=== PATIENT | male | born 1950 | race Caucasian/White ===

== ENCOUNTER 2017-04-16 17:49 | Emergency (ER) | payer OTHER ==
[2017-04-16 17:57] VITALS: BMI 33.9
[2017-04-16] MEDS ORDERED: CARDIZEM INJ 50 MG VIAL ONE (17:58)
[2017-04-16] MEDS ORDERED: CARDIZEM INJ 50 MG VIAL IVP ONE ×2 (17:59→19:11)
[2017-04-16] MEDS ORDERED: NS 1000 ML 1,000 ML IV SCH (18:00)
[2017-04-16] MEDS ORDERED: NS 1000 ML 1,000 ML ONE ×2 (18:03→19:35)
[2017-04-16 18:12] LABS: BASOPHILS # (AUTO) 0.1 X10^3/uL (0.0-0.1); EOSINOPHILS # (AUTO) 0.1 x10^3/uL (0.0-0.2); EOSINOPHILS % (AUTO) 1.5 % (0.9-2.9); HEMATOCRIT 41.6 % (42.0-54.0); HEMOGLOBIN 14.5 g/dL (13.5-18.0); LYMPHOCYTES # (AUTO) 1.5 X10^3/uL (1.3-2.9); LYMPHOCYTES % (AUTO) 17.3 % (21.0-51.0); MEAN CORPUSCULAR HGB CONC 34.9 g/dL (33.0-35.0); MEAN CORPUSCULAR VOLUME 91.7 fL (80.0-100.0); MEAN PLATELET VOLUME 9.6 fL (7.4-11.0); MONOCYTES # (AUTO) 0.7 x10^3/uL (0.3-0.8); MONOCYTES % (AUTO) 8.6 % (0.0-13.0); NEUTROPHILS # (AUTO) 6.2 x10^3/uL (2.2-4.8); NEUTROPHILS % (AUTO) 71.6 % (42.0-75.0); PLATELET COUNT 195 X10^3/uL (150.0-450.0); RED BLOOD COUNT 4.54 X10^6/uL (4.7-6.0); RED CELL DISTRIBUTION WIDTH 14.8 % (11.6-16.5); WHITE BLOOD COUNT 8.7 X10^3/uL (3.6-10.0)
--- NOTE | 2017-04-16 18:18 | DR.GENAD ---
HPI - PCP Primary Care Physician: adelfo - HPI Comment HPI Comment: PAIN PRECORDIAL AND NON RADIATING. TODAY PAIN MORE INTENSE, MORE FREQUENT AND ASSOCIATED WITH FLUTTERING ANGD WEAKNESS. PATIENT DID NOT TAKE MED TO RELIEF PAIN. - Complaint/Symptoms Chief Complaint Doctors Comments: CHEST PAIN ON AND OFF FOR ONE WEEK. Chief Complaint:: pt. stated he has been havingg chest pain for over a week and today at lunch he started hurting worse. - Nurses notes reviewed Nurses Notes Review: Yes - Source History Provided: Patient, EMS - Mode of Arrival Mode of Arrival: EMS - Timing Onset of Chief Complaint: 04/09/17 Came on: Suddenly - Duration Duration: Intermittent Duration: Days - Severity Severity: Moderate PMH - PMH Past Medical History: Yes Past Medical History: Coronary Artery Disease, CVA, GERD, Hypertension, [place] Past Surgical History: Yes Surgical History: Abdominal Surgery, Appendectomy, Ortho Surgery, Tonsillectomy - Family History History of Family Medical Conditions: Yes Family Medical History: Diabetes Mellitus, Cancer, [place], Hypertension - Social History Does patient currently use any type of tobacco product: No Have you used tobacco products in the last 12 months: No Type of Tobacco Use: None Does any household member use tobacco: No Alcohol Use: Occasionally Do you use any recreational Drugs:: No Lives With: Family Lives Where: Home - infectious screening In the last 2 months have you had wt loss of >10#?: NO Have you had fever, night sweats or hemotysis?: No Have you traveled outside the country in the last 6 months?: No Isolation: Standard ROS - Review of Systems Constitutional: Weakness, Fatigue. negative: Chills, Fever Eyes: No Symptoms Reported. negative: Eye Pain, Discharge ENTM: No Symptoms Reported. negative: Ear Pain, Nose Discharge, Nose Congestion , Throat Pain Respiratoy: Non-Productive Cough. negative: Short of Breath, Wheezing, Hemoptysis Cardiovascular: Chest Pain, Edema (TRACE), Palpitations, Other (A FIB) Gastrointestinal/Abdominal: Nausea Genitourinary: No Symptoms Reported. negative: Dysuria, Frequency, Hematuria Neurological: No Symptoms Reported, Headache, Weakness, Dizziness Musculoskeletal: Muscle Pain Integumentary: Change in Color Hematologic/Lymphatic: No Symptoms Reported Endocrine: No Symptoms Reported All Other Systems: Reviewed and Negative PE - Vital Signs Vitals: Temperature 98.2 F Pulse Rate [Apical] 75 Pulse Rate 150 Respiratory Rate 18 Blood Pressure [Left Arm] 119/78 Blood Pressure [Right Arm] 197/108 Blood Pressure 173/108 O2 Sat by Pulse Oximetry 97 - General Limitations: No Limitations General Appearance: Alert - Head Head Exam: Normal Inspection - Eyes Eye exam: Normal Appearance, PERRL, EOMI. negative: Scleral Icterus, Conjunctival Injection - ENT ENT Exam: Normal External Ear Exam External Ear Exam: Normal External Inspection TM/Canal Exam: Bilateral Normal Nose Exam: Normal Nose Exam Mouth Exam: Normal Inspection Throat Exam: Normal Inspection - Neck Neck Exam: Trachea Midline. negative: Tenderness, Meningismus, Lymphadenopathy - Chest Chest Inspection: Symmetric Chest Wall Rise - Respiratory Respiratory Exam: Normal Lung Sounds Bilat Respiratory Exam: Bilateral Rhonchi, Upper Rhonchi, Lower Rhonchi - Cardiovascular Cardiovascular Exam: Regular Rate, Normal Rhythm, Normal Heart Sounds - Abdominal Exam Abdominal Exam: Normal Bowel Sounds, Soft. negative: Tenderness - Extremities Extremities Exam: Normal Inspection - Back Back Exam: Normal Inspection - Neurologic Neurological Exam: Alert, Oriented X3 - Psychiatric Psychiatric Exam: Normal Affect, Normal Mood - Skin Skin Exam: Normal Color MDM - Additional Information Additional Information Obtained From: Family - Differential Diagnosis Differential Diagnosis: A FIB WITH RVR/ [place], [place], CAD, PNEUMONIA, HTN Course - Treatment Treatment: SEE ORDERS. CARDIOZEM IV DRIP, HEPARIN DRIPIN ED AND LABETALOL IV. PAIN MEDS IN ED ALSO. PATIENT IMPROVING. - Consultation Consultation Comments: PATIENT ACCEPTED BY DR. HOUGH, HOSPITALIST AT [facility]. DISCUSS PATIENT WITH HIM. - Education/Counseling Education/Counseling: Patient, Family, Education Educated On: Treatment, Diagnosis ROR - Labs Reviewed Laboratory Results Reviewed?: Yes Result Diagrams: 04/16/17 17:51 04/16/17 23:05 Laboratory: WBC 8.7 X10^3/uL (3.6-10.0) 04/16/17 17:51 RBC 4.54 X10^6/uL (4.7-6.0) L 04/16/17 17:51 Hgb 14.5 g/dL (13.5-18.0) 04/16/17 17:51 Hct 41.6 % (42.0-54.0) L 04/16/17 17:51 MCV 91.7 fL (80.0-100.0) 04/16/17 17:51 MCH 32.0 pg (27.0-34.0) 04/16/17 17:51 MCHC 34.9 g/dL (33.0-35.0) 04/16/17 17:51 RDW 14.8 % (11.6-16.5) 04/16/17 17:51 Plt Count 195 X10^3/uL (150.0-450.0) 04/16/17 17:51 MPV 9.6 fL (7.4-11.0) 04/16/17 17:51 Neut % 71.6 % (42.0-75.0) 04/16/17 17:51 Lymph % 17.3 % (21.0-51.0) L 04/16/17 17:51 [place] % 8.6 % (0.0-13.0) 04/16/17 17:51 Eos % 1.5 % (0.9-2.9) 04/16/17 17:51 Baso % 1.0 % (0.2-1.0) 04/16/17 17:51 Neut # 6.2 x10^3/uL (2.2-4.8) H 04/16/17 17:51 Lymph # 1.5 X10^3/uL (1.3-2.9) 04/16/17 17:51 [place] # 0.7 x10^3/uL (0.3-0.8) 04/16/17 17:51 Eos # 0.1 x10^3/uL (0.0-0.2) 04/16/17 17:51 Baso # 0.1 X10^3/uL (0.0-0.1) 04/16/17 17:51 Absolute Nucleated RBC 0.1 /100WBC 04/16/17 17:51 INR Target Range - 04/16/17 17:51 INR 1.12 (0.8-1.3) 04/16/17 17:51 PTT 30.8 SECONDS (22.9-36.5) 04/16/17 17:51 PTT Comment - 04/16/17 17:51 D-Dimer 120 ng/mL (0-400) 04/16/17 17:51 Sodium 139 mmol/L (136-145) 04/16/17 17:51 Corrected Sodium TNP 04/16/17 17:51 Potassium 3.4 mmol/L (3.5-5.1) L 04/16/17 23:05 Chloride 102 mmol/L (98-107) 04/16/17 17:51 Carbon Dioxide 26.3 mmol/L (21-32) 04/16/17 17:51 BUN 26 mg/dL (7-18) H 04/16/17 17:51 Creatinine 1.43 mg/dL (0.70-1.30) H 04/16/17 17:51 Est GFR (MDRD) Af Amer > 60 (>60) 04/16/17 17:51 Est GFR (MDRD) Non-Af 53 (>60) L 04/16/17 17:51 Glucose 106 mg/dL (65-99) H 04/16/17 17:51 Calcium 8.8 mg/dL (8.5-10.1) 04/16/17 17:51 Corrected Calcium TNP 04/16/17 17:51 Magnesium 2.0 mg/dL (1.7-2.9) 04/16/17 17:51 Total Bilirubin 1.00 mg/dL (0.2-1.0) 04/16/17 17:51 AST 22 Units/L (15-37) 04/16/17 17:51 ALT 46 Units/L (12-78) 04/16/17 17:51 Alkaline Phosphatase 101 Units/L (46-116) 04/16/17 17:51 Creatine Kinase 53 Units/L (39-308) 04/16/17 23:05 CK-MB (CK-2) 1.2 ng/mL (0-4.0) 04/16/17 23:05 CK/CKMB % Calc 2.3 % (<4) 04/16/17 23:05 Troponin I 0.05 ng/mL (0-1.5) 04/16/17 23:05 Total Protein 7.0 g/dL (6.4-8.2) 04/16/17 17:51 Albumin 3.5 g/dL (3.4-5.0) 04/16/17 17:51 Globulin 3.5 g/dL (2.5-4.5) 04/16/17 17:51 Albumin/Globulin Ratio 1.0 Ratio (1.1-2.1) L 04/16/17 17:51 - XRAY XRAY Interpreted by: Radiologist XRAY Findings: REPORT DISCUSS WITH PATIENT. - EKG Rhythm: Afib (EKG NOTED TIMES 2) - Diagnosis Discharge Problem: New onset atrial fibrillation, Atrial fibrillation with rapid ventricular response Chest pain Qualifiers: Chest pain type: precordial pain Qualified Code(s): R07.2 - Precordial pain Hypertension Qualifiers: Hypertension type: essential hypertension Qualified Code(s): I10 - Essential ( primary) hypertension - Discharge Plan Disposition: XFER SHT-TRM HOSP Condition: Stable - Follow ups/Referrals Follow ups/Referrals: YUMIKO BROWN [Primary Care Provider] - 3 days - Instructions
[2017-04-16] MEDS ORDERED: NS 100 ML IV 100 ML IV ONE (18:22)
[2017-04-16] MEDS ORDERED: CARDIZEM INJ 125 MG VIAL ONE (18:23)
[2017-04-16] MEDS: CARDIZEM INJ 125 MG VIAL 125 MG in NS 100 ML IV 100 ML IV PRN ×2 (18:29→18:46)
[2017-04-16 18:30] LABS: ALANINE AMINOTRANSFERASE 46 Units/L (12-78); ALBUMIN 3.5 g/dL (3.4-5.0); ALKALINE PHOSPHATASE 101 Units/L (46-116); ASPARTATE AMINO TRANSFERASE 22 Units/L (15-37); BLOOD UREA NITROGEN 26 mg/dL (7-18); CALCIUM 8.8 mg/dL (8.5-10.1); CARBON DIOXIDE 26.3 mmol/L (21-32); CHLORIDE 102 mmol/L (98-107); CKMB % 1.8 % (<4); CREATINE KINASE 56 Units/L (39-308); CREATININE 1.43 mg/dL (0.70-1.30); SODIUM 139 mmol/L (136-145); TROPONIN I 0.05 ng/mL (0-1.5); eGFR BLACK RACES > 60 (>60); eGFR NON BLACK RACES 53 (>60)
[2017-04-16] MEDS ORDERED: MORPHINE SULFATE INJ 4 MG IVP ONE ×2 (18:46→21:48)
[2017-04-16] MEDS ORDERED: ZOFRAN INJ 4 MG VIAL IVP ONE (18:46)
[2017-04-16] MEDS ORDERED: K-LYTE EFFERVESCENT PO ONE (18:50)
[2017-04-16] MEDS ORDERED: K-LYTE EFFERVESCENT ONE (18:54)
[2017-04-16] MEDS ORDERED: ASPIRIN 81 MG CHEWTAB ONE (18:54)
[2017-04-16] MEDS ORDERED: ZOFRAN INJ 4 MG VIAL ONE (18:54)
[2017-04-16] MEDS ORDERED: MORPHINE SULFATE INJ 4 MG ONE ×2 (18:55→21:50)
[2017-04-16] MEDS ORDERED: ASPIRIN 81 MG CHEWTAB PO SCH (19:00)
--- NOTE | 2017-04-16 19:05 | RAD ---
HISTORY: Chest pain. Study: Portable chest. Comparison: Chest x-ray dated December 21, 2015. Findings: The trachea is midline. The cardiac silhouette is at the upper limits of normal. No obvious focal c onsolidation, pleural effusion, or pneumothorax.. The bony thorax is unremarkable. IMPRESSION: No acute cardiopulmonary disease. Reported By:
[2017-04-16] MEDS ORDERED: DILAUDID INJ IVP ONE (19:13)
[2017-04-16] MEDS ORDERED: HEPARIN SODIUM IN D5W 25,000 UNITS/500 ML BAG IV PRN (19:28)
[2017-04-16] MEDS ORDERED: HEPARIN SODIUM INJ 5000 UNITS ONE (19:34)
[2017-04-16] MEDS ORDERED: HEPARIN SODIUM IN D5W 25,000 UNITS/500 ML BAG IV ONE (19:34)
[2017-04-16] MEDS ORDERED: HEPARIN SODIUM INJ 5000 UNITS IVP ONE (19:59)
[2017-04-16] MEDS ORDERED: DILAUDID INJ ONE (20:51)
[2017-04-16] MEDS ORDERED: SOLU-Medrol 125 MG VIAL IVP ONE (21:16)
[2017-04-16] MEDS ORDERED: BENADRYL INJ 50 MG VIAL IVP ONE (21:16)
[2017-04-16] MEDS ORDERED: BENADRYL INJ 50 MG VIAL ONE (21:20)
[2017-04-16] MEDS ORDERED: SOLU-Medrol 125 MG VIAL ONE (21:20)
[2017-04-16] MEDS ORDERED: CATAPRES TAB 0.2 MG ONE (21:43)
[2017-04-16] MEDS ORDERED: CATAPRES TAB 0.2 MG PO ONE (21:43)
[2017-04-16] MEDS ORDERED: DEMEROL INJ IVP ONE (22:59)
[2017-04-16] MEDS ORDERED: NORMODYNE INJ 100 MG VIAL IVP ONE (22:59)
[2017-04-16] MEDS ORDERED: NORMODYNE INJ 20 MG VIAL ONE (23:02)
[2017-04-16] MEDS ORDERED: DEMEROL INJ ONE (23:02)
[2017-04-16 23:32] LABS: CKMB % 2.3 % (<4); CREATINE KINASE MB 1.2 ng/mL (0-4.0); TROPONIN I 0.05 ng/mL (0-1.5)
[2017-04-17 00:24] VITALS: BP 119/78
[2017-04-17] MEDS ORDERED: K-LYTE EFFERVESCENT ONE (00:27)
[2017-04-17] MEDS ORDERED: K-LYTE EFFERVESCENT PO SCH (01:00)
[2017-04-17] MEDS ORDERED: NS 100 ML IV 100 ML IV ONE (01:21)
[2017-04-17] MEDS ORDERED: CARDIZEM INJ 125 MG VIAL ONE (01:21)
[2017-04-17] MEDS ORDERED: CARDIZEM INJ 125 MG VIAL 125 MG in NS 100 ML IV 100 ML IV PRN (01:25)
== END 2017-04-17 01:15 | disposition short-term general hospital (02) ==
LOC: ER 17:50
DX: I48.91 Unspecified atrial fibrillation (principal); I48.0 Paroxysmal atrial fibrillation; R07.2 Precordial pain; I10 Essential (primary) hypertension
CPT/HCPCS: 36415; 71010; 80053; 82550; 82553; 83735; 84132; 84484; 85025; 85378; 85610; 85730; 93005; 93010; 96365; 96367; 96374; 96375; 99285; A4222; J1170; J1200; J1644; J2175; J2270; J2405; J2930; J3490

== ENCOUNTER 2017-05-24 07:38 | Inpatient (IN) ==
[2017-05-24] MEDS ORDERED: NS 1000 ML 1,000 ML ONE (07:57)
[2017-05-24] MEDS ORDERED: NS 100 ML IV 100 ML IV ONE (07:58)
[2017-05-24] MEDS ORDERED: CARDIZEM INJ 125 MG VIAL ONE (07:58)
[2017-05-24] MEDS ORDERED: CARDIZEM INJ 50 MG VIAL ONE (07:58)
[2017-05-24] MEDS ORDERED: CARDIZEM INJ 50 MG VIAL IVP ONE ×2 (08:00→09:21)
[2017-05-24] MEDS ORDERED: ADACEL or BOOSTRIX TDaP VACCINE IM ONE ×2 (08:01→08:48)
--- NOTE | 2017-05-24 08:03 | DR.GENAD ---
HPI - PCP Primary Care Physician: YUMIKO BARNHART - Complaint/Symptoms Chief Complaint Doctors Comments: Patient is complaining of xiphoid chest pain after falling going down the steps at home about a hour ago with laceration on both lower legs. Patient states he just go out of [facility] last week with Atrial fibrillation in which they shocked him. States he has not taken any medicines in over a week. He is not taking any blood thinners or medicines for his heart. States he is a patient of Yumiko emanuel and he is unsure when he had his last tetanus shot. State his pain is 9 of 10. He denies SOB, nausea, vomiting, fever or chills. States there was ice on the steps is reason he felled. Patient denies head trauma or LOC. Patient drove himself to the EMS station and they wrapped his legs and brought him to the emergency room. Chief Complaint:: PATIENT HAS SKIN TEAR TO HIS LEFT LEG AND RIGHT LEG. PATIENT IS STATED HE FELL THIS MORNING ABOUT A HOUR PRIOR TO GOING TO THE EMS STATION. WHEN THEY TOOK HIS BLOOD PRESSURE HIS PRESSURE WAS 240/160 MANUAL. PATIENT IS C/ O LEFT CHEST DISCOMFORT. - Nurses notes reviewed Nurses Notes Review: Yes - Source History Provided: Patient, EMS - Mode of Arrival Mode of Arrival: EMS - Timing Onset of Chief Complaint: 05/24/17 Came on: Suddenly - Duration Duration: Constant How lon Duration: Hours - Location Location: xiphoid chest pain - Severity Severity: Moderate - Modifying Factors Worsens:: movement Improves:: nothing PMH - PMH Past Medical History: Yes Past Medical History: Coronary Artery Disease, CVA, GERD, Hypertension, [place] Past Surgical History: Yes Surgical History: Abdominal Surgery, Appendectomy, Ortho Surgery, Tonsillectomy - Family History History of Family Medical Conditions: Yes Family Medical History: Diabetes Mellitus, Cancer, [place], Hypertension - Social History Does patient currently use any type of tobacco product: No Have you used tobacco products in the last 12 months: No Type of Tobacco Use: None Does any household member use tobacco: No Alcohol Use: None Do you use any recreational Drugs:: No Lives With: Family Lives Where: Home - infectious screening In the last 2 months have you had wt loss of >10#?: NO Have you had fever, night sweats or hemotysis?: No Have you traveled outside the country in the last 6 months?: No Isolation: Standard ROS - Review of Systems Constitutional: No Symptoms Reported. negative: See HPI, Chills, Diaphoresis, Fever, Malaise, Weakness, Irritable, Fatigue, Loss of Appetite, Other Eyes: No Symptoms Reported. negative: See HPI, Eye Pain, Blurred Vision, Tearing, Discharge, Photophobia, Diplopia, Other ENTM: No Symptoms Reported Respiratoy: No Symptoms Reported. negative: See HPI, Productive Cough, Non- Productive Cough, Moist Cough, Dry Cough, Hacking Cough, Barking Cough, Brassy Cough, Orthopnea, Short of Breath, Stridor, Wheezing, Hemoptysis, Other Cardiovascular: Chest Pain. negative: No Symptoms Reported, See HPI, Edema, Palpitations, Syncope, Cyanosis, Skin Mottling, Other Gastrointestinal/Abdominal: No Symptoms Reported. negative: See HPI, Abdominal Pain, Constipation, Diarrhea, Nausea, Vomiting, Food Intolerance, Other Genitourinary: No Symptoms Reported. negative: See HPI, Discharge, Dysuria, Frequency, Hematuria, Pain, Bleeding, Other Neurological: No Symptoms Reported. negative: See HPI, Anxiety, Depressed, Emotional Problems, Headache, Numbness, Paresthesia, Pre-existing Deficit, Seizure, Tingling, Tremors, Weakness, Dizziness, Problems Walking, Speech Problem, Other Musculoskeletal: No Symptoms Reported, Right (laceration), Left, Leg Integumentary: No Symptoms Reported, Wound (lower legs), Bruises Hematologic/Lymphatic: No Symptoms Reported. negative: See HPI, Anemia, Blood Clots, Easy Bleeding, Easy Bruising, Swollen Glands, Lymphadenopathy, Other Endocrine: No Symptoms Reported Psychiatric: No Symptoms Reported. negative: See HPI, Anxiety, Depression, Hallucinations, Excessive crying, Suicidal, Other PE - Vital Signs Vitals: Temperature 97.7 F Pulse Rate [] 126 Pulse Rate 129 Respiratory Rate 18 Blood Pressure [] 228/159 Blood Pressure [] 197/108 Blood Pressure 210/150 O2 Sat by Pulse Oximetry 98 - General Limitations: No Limitations General Appearance: Alert, In Distress (moderate) - Head Head Exam: Normal Inspection, Atraumatic, Normocephalic - Eyes Eye exam: Normal Appearance, PERRL, EOMI. negative: Scleral Icterus, Conjunctival Injection, Nystagmus, Miosis, Mydrasis, Periorbital Swelling, Periorbital Tenderness, Other - ENT ENT Exam: Normal Exam, Normal Oropharynx, Normal External Ear Exam, Mucous Membranes Moist, TM's Normal Bilaterally External Ear Exam: Normal External Inspection TM/Canal Exam: Bilateral Normal Nose Exam: Normal Nose Exam Mouth Exam: Normal Inspection. negative: Drooling, Trismus, Lip Swelling, Tongue Elevation, Tongue Swelling, Laceration, Other Throat Exam: Normal Inspection - Neck Neck Exam: Normal Inspection, Full ROM, Trachea Midline - Chest Chest Inspection: Normal Inspection, Symmetric Chest Wall Rise, Tenderness ( xiphoid tenderness on palpation) - Respiratory Respiratory Exam: Normal Lung Sounds Bilat Respiratory Exam: Bilateral Clear to Auscultation - Cardiovascular Cardiovascular Exam: Tachycardia, Irregular Rhythm, Systolic Murmur - Abdominal Exam Abdominal Exam: Normal Inspection, Normal Bowel Sounds, Soft Abdominal Tenderness: negative: RUQ, RLQ, LUQ, LLQ, Epigastrium, Suprapubic, Diffuse, Mild, Moderate, Severe, Other - Extremities Extremities Exam: Normal Inspection, Full ROM, Tenderness (lower extremitites with bandage intact), Normal Capillary Refill - Back Back Exam: Normal Inspection, Full ROM. negative: Tenderness, (R) CVA Tenderness, (L) CVA Tenderness, Muscle Spasm, Paraspinal Tenderness, Vertebral Tenderness, Rashes, (R) Sciatic Notch Tenderness, (L) Sciatic Notch Tendern, (R ) Straight Leg Raise, (L) Straight Leg Raise, Other - Neurologic Neurological Exam: Alert, Oriented X3, CN II-XII Intact, Reflexes Normal. negative: Normal Gait (gait not tested) - Psychiatric Psychiatric Exam: Normal Affect, Normal Mood - Skin Skin Exam: Warm, Dry, Intact, Normal Color Course - Reevaluation 1st: Improved - Consultation Called: 09:53 Call Returned: 09:53 (Dr. Turner to admit) - Education/Counseling Education/Counseling: Patient, Family Educated On: Treatment, Diagnosis, Needs for Follow Up ROR - Labs Reviewed Laboratory Results Reviewed?: Yes (all labs and x-ray results reviewed and discussed with patient) Result Diagrams: 05/24/17 08:26 05/24/17 08:26 Laboratory: WBC 6.9 X10^3/uL (3.6-10.0) 05/24/17 08:26 RBC 4.56 X10^6/uL (4.7-6.0) L 05/24/17 08:26 Hgb 14.7 g/dL (13.5-18.0) 05/24/17 08:26 Hct 42.6 % (42.0-54.0) 05/24/17 08:26 MCV 93.3 fL (80.0-100.0) 05/24/17 08:26 MCH 32.1 pg (27.0-34.0) 05/24/17 08: MCHC 34.4 g/dL (33.0-35.0) 05/24/17 08: RDW 14.6 % (11.6-16.5) 05/24/17 08:26 Plt Count 194 X10^3/uL (150.0-450.0) 05/24/17 08: MPV 10.1 fL (7.4-11.0) 05/24/17 08: Neut % 76.3 % (42.0-75.0) H 05/24/17 08: Lymph % 15.5 % (21.0-51.0) L 05/24/17 08:26 [place] % 5.5 % (0.0-13.0) 05/24/17 08:26 Eos % 1.5 % (0.9-2.9) 05/24/17 08: Baso % 1.2 % (0.2-1.0) H 05/24/17 08:26 Neut # 5.2 x10^3/uL (2.2-4.8) H 05/24/17 08:26 Lymph # 1.1 X10^3/uL (1.3-2.9) L 05/24/17 08:26 [place] # 0.4 x10^3/uL (0.3-0.8) 05/24/17 08:26 Eos # 0.1 x10^3/uL (0.0-0.2) 05/24/17 08: Baso # 0.1 X10^3/uL (0.0-0.1) 05/24/17 08: Absolute Nucleated RBC 0.0 /100WBC 05/24/17 08: INR Target Range - 05/24/17 08: INR 1.07 (0.8-1.3) 01/06/18 08:26 PTT 28.2 SECONDS (22.9-36.5) 05/24/17 08:26 PTT Comment - 05/24/17 08:26 Sodium 140 mmol/L (136-145) 05/24/17 08:26 Corrected Sodium 140 mmol/L (136-145) 05/24/17 08:26 Potassium 3.1 mmol/L (3.5-5.1) L 05/24/17 08:26 Chloride 102 mmol/L (98-107) 05/24/17 08:26 Carbon Dioxide 25.1 mmol/L (21-32) 05/24/17 08:26 BUN 29 mg/dL (7-18) H 05/24/17 08:26 Creatinine 1.64 mg/dL (0.70-1.30) H 05/24/17 08:26 Est GFR (MDRD) Af Amer 55 (>60) L 05/24/17 08:26 Est GFR (MDRD) Non-Af 45 (>60) L 05/24/17 08:26 Glucose 117 mg/dL (65-99) H 05/24/17 08:26 Calcium 9.2 mg/dL (8.5-10.1) 05/24/17 08:26 Corrected Calcium TNP 05/24/17 08:26 Magnesium 2.0 mg/dL (1.7-2.9) 05/24/17 08:26 Total Bilirubin 0.60 mg/dL (0.2-1.0) 05/24/17 08:26 AST 15 Units/L (15-37) 05/24/17 08:26 ALT 38 Units/L (12-78) 05/24/17 08:26 Alkaline Phosphatase 115 Units/L (46-116) 05/24/17 08:26 Creatine Kinase 62 Units/L (39-308) 05/24/17 08:26 CK-MB (CK-2) 1.0 ng/mL (0-4.0) 05/24/17 08:26 CK/CKMB % Calc 1.6 % (<4) 05/24/17 08:26 Troponin I 0.04 ng/mL (0-1.5) 05/24/17 08:26 Total Protein 7.4 g/dL (6.4-8.2) 05/24/17 08:26 Albumin 3.6 g/dL (3.4-5.0) 05/24/17 08:26 Globulin 3.8 g/dL (2.5-4.5) 05/24/17 08:26 Albumin/Globulin Ratio 0.9 Ratio (1.1-2.1) L 05/24/17 08:26 Specimen Type Random urine 05/24/17 08:44 Urine Color Yellow (YELLOW) 05/24/17 08:44 Urine Appearance Clear (CLEAR) 05/24/17 08:44 Urine pH 6.0 (5.0 - 8.0) 05/24/17 08:44 Ur Specific [place] 1.015 (1.000-1.030) 05/24/17 08:44 Urine Protein 3+ (NEGATIVE) 05/24/17 08:44 Urine Glucose (UA) Negative (NEGATIVE) 05/24/17 08:44 Urine Ketones Negative (NEGATIVE) 05/24/17 08:44 Urine Occult Blood 2+ (NEGATIVE) 05/24/17 08:44 Urine Nitrite Negative (NEGATIVE) 05/24/17 08:44 Urine Bilirubin Negative (NEGATIVE) 05/24/17 08:44 Urine Urobilinogen Normal (NORMAL) 05/24/17 08:44 Ur Leukocyte Esterase 1+ (NEGATIVE) 05/24/17 08:44 Urine RBC Rare /HPF (NEGATIVE) 05/24/17 08:44 Urine WBC Rare /HPF (NEGATIVE) 05/24/17 08:44 Ur Squamous Epith Cells Rare /HPF (NEGATIVE) 05/24/17 08:44 Urine Bacteria Negative /HPF (NEGATIVE) 05/24/17 08:44 Ur Culture Indicated? No/not indicated 05/24/17 08:44 - XRAY XRAY Interpreted by: Radiologist (CXR: Cardiomegaly, no acute process identified) XRAY Findings: RIght knee: Prepatellar and diffuse periarticular soft tissue swelling fletcher - EKG Rate: 143 Rhythm: Afib Hypertrophy: LVH ST: Nonsp Procedures - Laceration/Wound Repair Right Knee Wound's Depth, Shape: Irregular, Flap, Contused Tissue Wound Explored: no foreign body removed Irrigated w/ Saline (ccs): 100 Betadine Prep?: Yes Anesthesia: 1% Lidocaine Volume Anesthetic (ccs): 10 Wound Repaired With: sutures Suture Size/Type: 3:0, Nylon Number of Sutures: 8 Layer Closure?: No Sterile Dressing Applied?: Yes Splint Applied?: No - Diagnosis Discharge Problem: Atrial fibrillation with rapid ventricular response, Uncontrolled hypertension , Hypokalemia, Traumatic hematoma of right knee Laceration of right lower extremity Qualifiers: Encounter type: initial encounter Qualified Code(s): S81.811A - Laceration without foreign body, right lower leg, initial encounter Contusion of right knee and lower leg Qualifiers: Encounter type: initial encounter Qualified Code(s): S80.01XA - Contusion of right knee, initial encounter; S80.11XA - Contusion of right lower leg, initial encounter; S80.11XA - Contusion of right lower leg, initial encounter Chronic kidney disease (CKD) Qualifiers: Chronic kidney disease stage: stage 3 (moderate) Qualified Code(s): N18.3 - Chronic kidney disease, stage 3 (moderate) - Discharge Plan Disposition: 09 ADMITTED INPATIENT Condition: Stable - Follow ups/Referrals Follow ups/Referrals: YUMIKO EMANUEL [Primary Care Provider] - 3 days - Instructions
[2017-05-24] MEDS: NS 1000 ML 1,000 ML IV SCH ×2 (08:10→22:37)
[2017-05-24] MEDS: CARDIZEM INJ 125 MG VIAL 125 MG in NS 100 ML IV 100 ML IV PRN ×2 (08:12→17:40)
[2017-05-24 08:40] LABS: BASOPHILS # (AUTO) 0.1 X10^3/uL (0.0-0.1); BASOPHILS % (AUTO) 1.2 % (0.2-1.0); EOSINOPHILS # (AUTO) 0.1 x10^3/uL (0.0-0.2); EOSINOPHILS % (AUTO) 1.5 % (0.9-2.9); HEMATOCRIT 42.6 % (42.0-54.0); HEMOGLOBIN 14.7 g/dL (13.5-18.0); LYMPHOCYTES # (AUTO) 1.1 X10^3/uL (1.3-2.9); LYMPHOCYTES % (AUTO) 15.5 % (21.0-51.0); MEAN CORPUSCULAR HEMOGLOBIN 32.1 pg (27.0-34.0); MEAN CORPUSCULAR HGB CONC 34.4 g/dL (33.0-35.0); MEAN CORPUSCULAR VOLUME 93.3 fL (80.0-100.0); MEAN PLATELET VOLUME 10.1 fL (7.4-11.0); MONOCYTES # (AUTO) 0.4 x10^3/uL (0.3-0.8); MONOCYTES % (AUTO) 5.5 % (0.0-13.0); NEUTROPHILS # (AUTO) 5.2 x10^3/uL (2.2-4.8); NEUTROPHILS % (AUTO) 76.3 % (42.0-75.0); PLATELET COUNT 194 X10^3/uL (150.0-450.0); RED BLOOD COUNT 4.56 X10^6/uL (4.7-6.0); RED CELL DISTRIBUTION WIDTH 14.6 % (11.6-16.5); WHITE BLOOD COUNT 6.9 X10^3/uL (3.6-10.0)
[2017-05-24] MEDS ORDERED: CATAPRES TAB 0.2 MG PO ONE (08:42)
[2017-05-24] MEDS ORDERED: CATAPRES TAB 0.2 MG ONE (08:42)
[2017-05-24] MEDS ORDERED: MORPHINE SULFATE INJ 4 MG IVP STA (08:43)
[2017-05-24] MEDS ORDERED: MORPHINE SULFATE INJ 4 MG ONE (08:48)
[2017-05-24] MEDS ORDERED: NEOSPORIN OINT ONE (08:51)
[2017-05-24 08:54] LABS: BLOOD UREA NITROGEN 29 mg/dL (7-18); CALCIUM 9.2 mg/dL (8.5-10.1); CARBON DIOXIDE 25.1 mmol/L (21-32); CHLORIDE 102 mmol/L (98-107); COR NA(FOR HYPERGLY) 140 mmol/L (136-145); CREATININE 1.64 mg/dL (0.70-1.30); SODIUM 140 mmol/L (136-145); TROPONIN I 0.04 ng/mL (0-1.5); eGFR NON BLACK RACES 45 (>60)
--- NOTE | 2017-05-24 08:56 | RAD ---
Examination: Portable AP chest History: Chest pain Comparison reference 04/16/2017 Findings: Moderate cardiomegaly with arteriosclerotic aorta, essentially clear lungs and pleural spac es. Impression: Cardiac enlargement, no acute process identified. Reported By:
[2017-05-24 08:58] LABS: ALANINE AMINOTRANSFERASE 38 Units/L (12-78); ALBUMIN 3.6 g/dL (3.4-5.0); ALKALINE PHOSPHATASE 115 Units/L (46-116); ASPARTATE AMINO TRANSFERASE 15 Units/L (15-37); CKMB % 1.6 % (<4); CREATINE KINASE 62 Units/L (39-308); TOTAL PROTEIN 7.4 g/dL (6.4-8.2)
[2017-05-24] MEDS ORDERED: XYLOCAINE 1 % (PLAIN) ONE ×3 (08:58→09:06)
[2017-05-24 09:09] LABS: BILIRUBIN,URINE NEGATIVE (NEGATIVE); BLOOD/HEMOGLOBIN,URINE 2+ (NEGATIVE); GLUCOSE, URINE NEGATIVE (NEGATIVE); KETONES,URINE NEGATIVE (NEGATIVE); LEUKOCYTE ESTERASE ,URINE 1+ (NEGATIVE); NITRITES,URINE NEGATIVE (NEGATIVE); PROTEIN,URINE 3+ (NEGATIVE); UROBILINOGEN,URINE NORMAL (NORMAL)
[2017-05-24 09:13] LABS: APPEARANCE,URINE CLEAR (CLEAR); COLOR,URINE YELLOW (YELLOW)
[2017-05-24] MEDS ORDERED: NS IRRIGATION 1000 ML 1,000 ML ONE (09:14)
[2017-05-24] MEDS ORDERED: HIBICLENS WASH ONE (09:14)
[2017-05-24 09:17] LABS: RBC,URINE RARE /HPF (NEGATIVE); SQUAMOUS EPITHELIAL CELL,UR RARE /HPF (NEGATIVE)
[2017-05-24 09:18] LABS: BACTERIA,URINE NEGATIVE /HPF (NEGATIVE)
[2017-05-24] MEDS ORDERED: LASIX IVP ONE ×2 (09:25→09:27)
[2017-05-24] MEDS ORDERED: ROCEPHIN VIAL 1 GRAM 1 G in NS 100 ML IV + SPIKE MINIBAG* 100 ML IV ONE (09:28)
[2017-05-24] MEDS: NITROSTAT SL PRN (09:29)
[2017-05-24] MEDS ORDERED: NS 25 ML IV 25 ML IV ONE (09:32)
[2017-05-24] MEDS ORDERED: ROCEPHIN VIAL 1 GRAM ONE (09:33)
--- NOTE | 2017-05-24 09:53 | RAD ---
History: Right knee pain following fall. Exam: Three-view series of the right knee joint demonstrates moderate tricompartmental right knee brandyn nt osteoarthritis, worse medially, without evidence for acute fracture or acute bony injury. There is periarticular and diffuse prepatellar soft tissue swelling and edema with an adjacent laceration. No significant knee joint effusion is seen. There is an old, healed, right proximal fibular diaphyseal fracture. No other bony abnormalities are observed on the exam. Impression: Prepatellar and diffuse periarticular soft tissue swelling edema with a focal soft tissue laceration without evidence for acute fracture or other acute bony injury. No significant knee joint effusion. Moderate tricompartmental knee joint osteoarthritis, worse medially. Reported By:
[2017-05-24] MEDS: K-LYTE EFFERVESCENT PO SCH (09:58)
[2017-05-24] MEDS ORDERED: ATIVAN TAB 1 MG PO PRN (09:59)
[2017-05-24 12:28] VITALS: BMI 33.9
[2017-05-24] MEDS: NORCO 5/325 MG TAB PO PRN (13:15)
[2017-05-24] MEDS: TORADOL 30 MG VIAL IVP PRN (15:32)
[2017-05-24] MEDS ORDERED: POTASSIUM CHL 40 MEQ/NS 0.45% 500 ML IV PRN (15:57)
[2017-05-24] MEDS ORDERED: POTASSIUM CHLORIDE LIQ 20 MEQ UDC PO PRN (15:57)
[2017-05-24] MEDS ORDERED: MAG-OX TAB PO PRN (15:57)
[2017-05-24] MEDS ORDERED: K-RIDER 10 MEQ/NS 100 ML 10 MEQ/100 ML BAG IV PRN (15:57)
[2017-05-24] MEDS ORDERED: K-LYTE EFFERVESCENT PO PRN (15:57)
[2017-05-24] MEDS ORDERED: MAGNESIUM SULFATE 1 GRAM/100 mL PREMIX 1 GM/100 ML BAG IV PRN (15:57)
[2017-05-24] MEDS ORDERED: POTASSIUM CHL 60 MEQ/NS 0.45% 500 ML IV PRN (15:57)
[2017-05-24 16:02] LABS: CKMB % 2.4 % (<4); CREATINE KINASE MB 1.1 ng/mL (0-4.0); TROPONIN I 0.03 ng/mL (0-1.5)
[2017-05-24] MEDS ORDERED: NORMODYNE INJ 20 MG VIAL IV PRN (17:41)
[2017-05-24] MEDS: NORMODYNE INJ 20 MG VIAL IV PRN (17:53)
[2017-05-24 23:10] LABS: CKMB % 2.2 % (<4); CREATINE KINASE 45 Units/L (39-308); CREATINE KINASE MB < 1.0 ng/mL (0-4.0); TROPONIN I 0.03 ng/mL (0-1.5)
[2017-05-25] MEDS ORDERED: NITROSTAT SL ONE (00:47)
[2017-05-25] MEDS: NITROSTAT SL PRN ×2 (00:50→00:55)
[2017-05-25] MEDS: NORCO 5/325 MG TAB PO PRN (01:00)
[2017-05-25] MEDS: TORADOL 30 MG VIAL IVP PRN (02:10)
[2017-05-25 06:21] LABS: BASOPHILS # (AUTO) 0.1 X10^3/uL (0.0-0.1); BASOPHILS % (AUTO) 1.1 % (0.2-1.0); EOSINOPHILS # (AUTO) 0.1 x10^3/uL (0.0-0.2); EOSINOPHILS % (AUTO) 2.3 % (0.9-2.9); HEMOGLOBIN 12.6 g/dL (13.5-18.0); LYMPHOCYTES # (AUTO) 1.1 X10^3/uL (1.3-2.9); LYMPHOCYTES % (AUTO) 17.1 % (21.0-51.0); MEAN CORPUSCULAR HEMOGLOBIN 31.9 pg (27.0-34.0); MEAN CORPUSCULAR HGB CONC 34.2 g/dL (33.0-35.0); MEAN CORPUSCULAR VOLUME 93.5 fL (80.0-100.0); MEAN PLATELET VOLUME 10.6 fL (7.4-11.0); MONOCYTES # (AUTO) 0.5 x10^3/uL (0.3-0.8); MONOCYTES % (AUTO) 7.4 % (0.0-13.0); NEUTROPHILS # (AUTO) 4.6 x10^3/uL (2.2-4.8); NEUTROPHILS % (AUTO) 72.1 % (42.0-75.0); PLATELET COUNT 166 X10^3/uL (150.0-450.0); RED BLOOD COUNT 3.95 X10^6/uL (4.7-6.0); RED CELL DISTRIBUTION WIDTH 14.3 % (11.6-16.5); WHITE BLOOD COUNT 6.4 X10^3/uL (3.6-10.0)
[2017-05-25 06:40] LABS: ALANINE AMINOTRANSFERASE 30 Units/L (12-78); ALKALINE PHOSPHATASE 90 Units/L (46-116); ASPARTATE AMINO TRANSFERASE 14 Units/L (15-37); BLOOD UREA NITROGEN 30 mg/dL (7-18); CALCIUM 8.5 mg/dL (8.5-10.1); CARBON DIOXIDE 28.3 mmol/L (21-32); CHLORIDE 104 mmol/L (98-107); CHOL/HDL RATIO 4.2 (0.0-5.0); CHOLESTEROL 172 mg/dL (0-200); COR CA(FOR HYPOALB) 9.3 mg/dL (8.5-10.1); HDL CHOLESTEROL 41 mg/dL (40-60); SODIUM 142 mmol/L (136-145); TOTAL PROTEIN 6.2 g/dL (6.4-8.2); TRIGLYCERIDES 58 mg/dL (0-150); eGFR NON BLACK RACES 41 (>60)
[2017-05-25] MEDS: CARDIZEM INJ 125 MG VIAL 125 MG in NS 100 ML IV 100 ML IV PRN (06:58)
[2017-05-25] MEDS ORDERED: AMBIEN PO PRN (07:54)
[2017-05-25] MEDS: ZESTRIL TAB 40 MG PO SCH ×2 (09:21→20:30)
[2017-05-25] MEDS: LOVENOX INJ 40 MG SYR SC SCH (09:22)
[2017-05-25] MEDS: PROTONIX INJ 40 MG VIAL IVP SCH (09:23)
[2017-05-25] MEDS: FLOMAX PO SCH (09:24)
[2017-05-25] MEDS: K-LYTE EFFERVESCENT PO SCH ×2 (09:24→09:26)
[2017-05-25] MEDS: CARDIZEM CD 240 MG PO SCH (11:36)
[2017-05-25] MEDS: APRESOLINE TAB 25 MG PO SCH ×2 (11:46→16:23)
[2017-05-25] MEDS ORDERED: PATIENT'S HOME MEDICATION (Hydralazine Hcl [Hydralazine Hcl] 1 TAB) PO SCH (12:00)
[2017-05-25] MEDS: NS 1000 ML 1,000 ML IV SCH ×2 (15:58→15:59)
--- NOTE | 2017-05-25 20:16 | DR.H&P ---
H&P - History & Physical for Day of: H&P Date: 05/24/17 - Chief Complaint Chief Complaint: fall - Allergies Allergies/Adverse Reactions: Allergies Allergy/AdvReac Type Severity Reaction Status Date / Time No Known Drug Allergies Allergy Verified 04/16/17 17:50 - History of Present Illness History of Present Illness: is a 66 year old patient of who presented to the emergency room via EMS with complaints of a laceration to the left and right legs after slipping on ice and falling down the steps at home. Patient reports that he fell approximately one hour prior to arrival at the ER. He is also noted with complaints of xiphoid chest discomfort after falling. Patient rates pain 9/10 to chest and bilateral knees. EMS reported a manual blood pressure of 240/160. Patient reports recently being discharged from [facility] for treatment of atrial fibrillation. Patient states that they had to cardiovert him. He denies compliance with medications since discharge. He denies shortness of breath, nausea, vomiting, fever, or chills. He denies hitting his head or loss of consciousness when he fell. On examination, heart rate is irregular and rapid. Bilateral lungs are noted clear to auscultation. Abdomen is round, soft, and non-tender with normal bowel sounds noted in all quadrants. On arrival, vitals were 97.7, 129, 22, 96% RA, 210/150. Labs, EKG, and xrays were obtained. Abnormal Labs include the following : RBC 4.56, Potassium 3.1, BUN 29, Creatinine 1.64, GFR(AA) 55, GFR(non) 45, Glucose 117, A/G Ratio 0.9. Urinalysis reports: Protein 3+, Occult Blood 2+, Leuk Ca 1+, RBC rare, WBC rare, Squam Epith Cells rare. Chest xray reports: Cardiac enlargement, no acute process identified. Right knee xray reports: Prepatellar and diffuse periarticular soft tissue swelling edema with a focal soft tissue laceration without evidence for acute fracture or other acute bony injury. No significant joint effusion. Moderate tricompartmental knee joint osteoarthritis, worse medially. Laceration to the right knee was repaired using 8 3.0 nylon sutures. A bandage was applied. EKG reports: Atrial fibrillation. Heart rwuf=[id number]. Patient given 2 boluses of Cardizem and then started on a Cardizem drip. He was given catapres 0.2mg po x 1. Blood pressure decreased to 133/87 prior to admission. We admitted patient to the intensive care unit for further treatment and evaluation. We will continue to monitor blood pressure and heart rate and rhythm closely. We plan to follow up with am labs and ekg and continue to monitor. - Past Medical History Past Medical History: Coronary Artery Disease, CVA, GERD, Hypertension, [place] - Past Surgical History Surgical History: Abdominal Surgery, Ortho Surgery - Family History Family Medical History: Diabetes Mellitus, Cancer, Coronary Artery Disease, Hypertension - Social History Does patient currently use any type of tobacco product: No Have you used tobacco products in the last 12 months: No Type of Tobacco Use: None Does any household member use tobacco: No Alcohol Use: Occasionally Drug Use: Prescription Drugs - Medications Home Medications: Atorvastatin Calcium 1 tab PO HS 05/24/17 [History Confirmed 05/24/17] Hydralazine HCl 1 tab PO TIDWM 05/24/17 [History Confirmed 05/24/17] Lisinopril 0.5 tab PO BID 05/24/17 [History Confirmed 05/24/17] Ropinirole HCl 1 tab PO HS 05/24/17 [History Confirmed 05/24/17] Tamsulosin HCl [FLOMAX (GENERIC) 0.4 MG *] 1 cap PO DAILY 05/24/17 [History Confirmed 05/24/17] Zolpidem Tartrate 1 tab PO DAILY PRN 05/24/17 [History Confirmed 05/24/17] - Review of Systems Constitutional: No Symptoms Reported Eyes: No Symptoms Reported. denies: Vision Change, Conjunctivae Inflammation, Eyelid Inflammation, Redness ENT: No Symptoms Reported, See HPI. denies: Ear Pain, Ear Discharge, Nose Pain , Nose Discharge, Nose Congestion, Mouth Pain, Mouth Swelling, Throat Pain, Throat Swelling, Other Respiratory: No Symptoms Reported. denies: Shortness of Breath, Hemoptysis, SOB with Excertion, Sputum, Wheezing Cardiovascular: Chest Pain Gastrointestinal: No Symptoms Reported. denies: See HPI, Nausea, Vomiting, Abdominal Pain, Diarrhea, Constipation, Melena, Hematochezia, Other Genitourinary: No Symptoms Reported. denies: See HPI, Dysuria, Frequency, Incontinence, Hematuria, Retention, Other Musculoskeletal: See HPI, Other (BILATERAL KNEE PAIN ) Skin: See HPI, Wound (LACERATIONS TO BILATERAL KNEES ) Neurological: No Symptoms Reported - Physical Exam Vital Signs: Temperature 98.1 F Pulse Rate [Apical] 121 Pulse Rate 129 Respiratory Rate 26 Blood Pressure [Left Arm] 177/113 Blood Pressure [Right Arm] 127/89 Blood Pressure 210/150 O2 Sat by Pulse Oximetry 98 Oriented: Normal Eyes: Normal. negative: Blurred Vision, Diplopia, Discharge, Pain, Redness, Photophobia, Other Ear: Normal. negative: Right, Left, Swelling, Ecchymosis, Hemotypanum, Abrasion , Laceration Nose: Normal. negative: Injected, Discharge, Blood, Other Throat: Normal. negative: Tonsillar Hypertrophy, Red, Exudate, Dry, Other Respiratory: Clear Throughout Cardiovascular: Tachycardia, Irregular. negative: S3, S4, Murmur, Edema : Normal Auscultation: Bowel Sounds: Normal. negative: Bruit, Absent, Increased, Decreased, High Pitched, Other Palpation: Normal. negative: Spleen Enlarged, Liver Enlarged, Mass Pulsatile, Other Tenderness: Normal Skin: Wound (BILATERAL KNEES ) Musculoskeletal: Right, Left, Knee, Tender Psychiatric: Normal Mood Description: Calm Affect: Normal Speech Pattern: Clear - Assessment/Plan (1) Atrial fibrillation with rapid ventricular response Status: Acute Plan: CARDIZEM DRIP, TELEMETRY, SUPPLEMENTAL OXYGEN, CONTINUE TO MONITOR (2) Laceration of right lower extremity Qualifiers: Encounter type: initial encounter Qualified Code(s): S81.811A - Laceration without foreign body, right lower leg, initial encounter Status: Acute Plan: WOUND CARE, CONTINUE TO MONITOR
[2017-05-25] MEDS ORDERED: REQUIP PO SCH (21:00)
[2017-05-25] MEDS ORDERED: LIPITOR TAB 20 MG PO SCH (21:00)
[2017-05-25] MEDS: NORMODYNE INJ 20 MG VIAL IV PRN ×2 (22:11→22:41)
[2017-05-26] MEDS: NORMODYNE INJ 20 MG VIAL IV PRN ×2 (03:10→03:40)
[2017-05-26] MEDS: NS 1000 ML 1,000 ML IV SCH (05:12)
[2017-05-26] MEDS: APRESOLINE TAB 25 MG PO SCH ×2 (06:11→11:17)
[2017-05-26 06:18] LABS: BASOPHILS # (AUTO) 0.1 X10^3/uL (0.0-0.1); EOSINOPHILS # (AUTO) 0.1 x10^3/uL (0.0-0.2); EOSINOPHILS % (AUTO) 1.9 % (0.9-2.9); HEMATOCRIT 37.9 % (42.0-54.0); LYMPHOCYTES # (AUTO) 0.9 X10^3/uL (1.3-2.9); LYMPHOCYTES % (AUTO) 13.4 % (21.0-51.0); MEAN CORPUSCULAR HEMOGLOBIN 32.2 pg (27.0-34.0); MEAN CORPUSCULAR HGB CONC 34.4 g/dL (33.0-35.0); MEAN CORPUSCULAR VOLUME 93.9 fL (80.0-100.0); MEAN PLATELET VOLUME 10.4 fL (7.4-11.0); MONOCYTES # (AUTO) 0.4 x10^3/uL (0.3-0.8); MONOCYTES % (AUTO) 6.2 % (0.0-13.0); NEUTROPHILS # (AUTO) 5.3 x10^3/uL (2.2-4.8); NEUTROPHILS % (AUTO) 77.5 % (42.0-75.0); PLATELET COUNT 180 X10^3/uL (150.0-450.0); RED BLOOD COUNT 4.03 X10^6/uL (4.7-6.0); RED CELL DISTRIBUTION WIDTH 14.5 % (11.6-16.5); WHITE BLOOD COUNT 6.8 X10^3/uL (3.6-10.0)
[2017-05-26 07:14] LABS: ALBUMIN 2.9 g/dL (3.4-5.0); CALCIUM 8.6 mg/dL (8.5-10.1); CARBON DIOXIDE 24.4 mmol/L (21-32); COR CA(FOR HYPOALB) 9.5 mg/dL (8.5-10.1); CREATININE 1.61 mg/dL (0.70-1.30); TOTAL PROTEIN 6.4 g/dL (6.4-8.2)
[2017-05-26] MEDS ORDERED: K-DUR TAB 20 MEQ PO ONE (09:07)
[2017-05-26] MEDS: FLOMAX PO SCH (09:11)
[2017-05-26] MEDS: CARDIZEM CD 240 MG PO SCH (09:11)
[2017-05-26] MEDS: K-LYTE EFFERVESCENT PO SCH (09:11)
[2017-05-26] MEDS: ZESTRIL TAB 40 MG PO SCH (09:11)
[2017-05-26] MEDS: PROTONIX INJ 40 MG VIAL IVP SCH (09:12)
[2017-05-26] MEDS: LOVENOX INJ 40 MG SYR SC SCH (09:12)
[2017-05-26] MEDS: TORADOL 30 MG VIAL IVP PRN (09:15)
--- NOTE | 2017-05-26 10:38 | RAD ---
History: Chest pain Study: Chest one view Findings: AP upright chest shows the cardiac silhouette to be enlarged. The pulmonary vasculature appears at upper limits normal. No pneumonia or pleural effusion is seen. Impression: 1. Cardiomegaly with no overt CHF or pneumonia. Reported By:
[2017-05-26 10:56] LABS: CKMB % 1.6 % (<4); CREATINE KINASE 62 Units/L (39-308); CREATINE KINASE MB < 1.0 ng/mL (0-4.0); TROPONIN I < 0.02 ng/mL (0-1.5)
[2017-05-26] MEDS ORDERED: LOPRESSOR TAB 50 MG PO SCH (13:00)
[2017-05-26 16:13] VITALS: BP 158/91
--- NOTE | 2017-05-26 17:37 | PCM.PROG ---
Progress Note - Progress Note for Day of Date: 05/25/17 - Subjective Subjective: WAS ADMITTED FOR ATRIAL FIBRILLATION WITH RVR AND WOUNDS TO BILATERAL KNEES AFTER SLIPPING ON ICE AND FALLING. TODAY, HE IS ALERT AND ORIENTED, LYING IN BED ON MORNING ROUNDS. HE REPORTS THAT HE IS FEELING SOMEWHAT BETTER SINCE YESTERDAY. HE CONTINUES WITH BILATERAL KNEE PAIN. DRESSING TO KNEES DRY AND INTACT. HE CONTINUES TO BE IN ATRIAL FIBRILLATION, HOWEVER, RATE IS CONTROLLED AT THIS TIME. BILATERAL LUNGS ARE CLEAR TO AUSCULTATION. ABDOMEN IS ROUND, SOFT, AND NON-TENDER WITH NORMAL BOWEL SOUNDS NOTED IN ALL QUADRANTS. THERE IS NORMAL RANGE OF MOTION NOTED TO ALL EXTREMITIES. VITALS THIS MORNING ARE 98.8-92-22-95%-145/104. LABS WERE OBTAINED THIS MORNING. ABNORMAL LAB VALUES INCLUDE THE FOLLOWING: RBC 3.95, HGB 12.6, HCT 37.0, POTASSIUM 3.0, BUN 30, CREATININE 1.80, GLUCOSE 104, AST 14, TOTAL PROTEIN 6.2, ALBUMIN 3.0. CARDIAC ENZYMES HAVE BEEN NORMAL. MOST RECENT EKG REPORTS ATRIAL FIBRILLATION WITH HR 91. TODAY, WE PLAN TO DISCONTINUE THE CARDIZEM DRIP AND START CARDIZEM DC 240MG PO DAILY. WE WILL RESTART PATIENTS BLOOD PRESSURE MEDICATIONS FROM HOME. OTHERWISE, WE WILL CONTINUE TO MONITOR LABS AND EKG AND FOLLOW UP WITH PATIENT IN THE MORNING. - Past Medical Family Social History Past Med/Fam/Surg Hx: No changes since H&P Allergies: Allergies No Known Drug Allergies Allergy (Verified 04/16/17 17:50) - Review of Systems ROS: No change since H&P - Vital Signs and I&O's Vital Signs: Temperature 98.4 F Pulse Rate [Apical] 93 Pulse Rate 129 Respiratory Rate 24 Blood Pressure [Left Arm] 158/91 Blood Pressure [Right Arm] 151/101 Blood Pressure 210/150 O2 Sat by Pulse Oximetry 97 Intake and Output: Intake & Output 05/24/17 05/25/17 05/26/17 05/27/17 11:59 11:59 11:59 11:59 Intake Total 35 2216 2156 1018 Output Total 1050 1100 Balance 35 1166 1056 1018 - Physical Exam Oriented: Normal Eyes: Normal. negative: Blurred Vision, Diplopia, Discharge, Pain, Redness, Photophobia, Other Ear: Normal. negative: Right, Left, Swelling, Ecchymosis, Hemotypanum, Abrasion , Laceration Nose: Normal. negative: Injected, Discharge, Blood, Other Throat: Normal. negative: Tonsillar Hypertrophy, Red, Exudate, Dry, Other Respiratory: Normal Cardiovascular: Irregular. negative: S3, S4, Murmur, Edema : Normal Auscultation: Bowel Sounds: Normal. negative: Bruit, Absent, Increased, Decreased, High Pitched, Other Palpation: Normal Tenderness: Normal Skin: Wound (BILATERAL KNEES ) Musculoskeletal: Right, Left, Knee, Tender Psychiatric: Normal Mood Description: Calm Affect: Normal Speech Pattern: Clear - Laboratory and Diagnostics Result Diagrams: 05/26/17 05:15 05/26/17 05:15 Labs: Laboratory WBC 6.8 X10^3/uL (3.6-10.0) 05/26/17 05:15 RBC 4.03 X10^6/uL (4.7-6.0) L 05/26/17 05:15 Hgb 13.0 g/dL (13.5-18.0) L 05/26/17 05:15 Hct 37.9 % (42.0-54.0) L 05/26/17 05:15 MCV 93.9 fL (80.0-100.0) 05/26/17 05:15 MCH 32.2 pg (27.0-34.0) 05/26/17 05:15 MCHC 34.4 g/dL (33.0-35.0) 05/26/17 05:15 RDW 14.5 % (11.6-16.5) 05/26/17 05:15 Plt Count 180 X10^3/uL (150.0-450.0) 05/26/17 05:15 MPV 10.4 fL (7.4-11.0) 05/26/17 05:15 Neut % 77.5 % (42.0-75.0) H 05/26/17 05:15 Lymph % 13.4 % (21.0-51.0) L 05/26/17 05:15 [place] % 6.2 % (0.0-13.0) 05/26/17 05:15 Eos % 1.9 % (0.9-2.9) 05/26/17 05:15 Baso % 1.0 % (0.2-1.0) 05/26/17 05:15 Neut # 5.3 x10^3/uL (2.2-4.8) H 05/26/17 05:15 Lymph # 0.9 X10^3/uL (1.3-2.9) L 05/26/17 05:15 [place] # 0.4 x10^3/uL (0.3-0.8) 05/26/17 05:15 Eos # 0.1 x10^3/uL (0.0-0.2) 05/26/17 05:15 Baso # 0.1 X10^3/uL (0.0-0.1) 05/26/17 05:15 Absolute Nucleated RBC 0.0 /100WBC 05/26/17 05:15 INR Target Range - 05/24/17 08:26 INR 1.07 (0.8-1.3) 05/24/17 08:26 PTT 28.2 SECONDS (22.9-36.5) 05/24/17 08:26 PTT Comment - 05/24/17 08:26 Sodium 142 mmol/L (136-145) 05/26/17 05:15 Corrected Sodium 142 mmol/L (136-145) 05/26/17 05:15 Potassium 3.4 mmol/L (3.5-5.1) L 05/26/17 05:15 Chloride 106 mmol/L (98-107) 05/26/17 05:15 Carbon Dioxide 24.4 mmol/L (21-32) 05/26/17 05:15 BUN 22 mg/dL (7-18) H 05/26/17 05:15 Creatinine 1.61 mg/dL (0.70-1.30) H 05/26/17 05:15 Est GFR (MDRD) Af Amer 56 (>60) L 05/26/17 05:15 Est GFR (MDRD) Non-Af 46 (>60) L 05/26/17 05:15 Glucose 120 mg/dL (65-99) H 05/26/17 05:15 Calcium 8.6 mg/dL (8.5-10.1) 05/26/17 05:15 Corrected Calcium 9.5 mg/dL (8.5-10.1) 05/26/17 05:15 Magnesium 1.8 mg/dL (1.7-2.9) 05/24/17 14:35 Total Bilirubin 0.50 mg/dL (0.2-1.0) 05/26/17 05:15 AST 14 Units/L (15-37) L 05/26/17 05:15 ALT 31 Units/L (12-78) 05/26/17 05:15 Alkaline Phosphatase 103 Units/L (46-116) 05/26/17 05:15 Creatine Kinase 62 Units/L (39-308) 05/26/17 10:17 CK-MB (CK-2) < 1.0 ng/mL (0-4.0) 05/26/17 10:17 CK/CKMB % Calc 1.6 % (<4) 05/26/17 10:17 Troponin I < 0.02 ng/mL (0-1.5) 05/26/17 10:17 Total Protein 6.4 g/dL (6.4-8.2) 05/26/17 05:15 Albumin 2.9 g/dL (3.4-5.0) L 05/26/17 05:15 Globulin 3.5 g/dL (2.5-4.5) 05/26/17 05:15 Albumin/Globulin Ratio 0.8 Ratio (1.1-2.1) L 05/26/17 05:15 Triglycerides 58 mg/dL (0-150) 05/25/17 05:25 Cholesterol 172 mg/dL (0-200) 05/25/17 05:25 LDL Cholesterol, Calc 119 mg/dL (0-100) H 05/25/17 05:25 HDL Cholesterol 41 mg/dL (40-60) 05/25/17 05:25 Cholesterol/HDL Ratio 4.2 (0.0-5.0) 05/25/17 05:25 Specimen Type Random urine 05/24/17 08:44 Urine Color Yellow (YELLOW) 05/24/17 08:44 Urine Appearance Clear (CLEAR) 05/24/17 08:44 Urine pH 6.0 (5.0 - 8.0) 05/24/17 08:44 Ur Specific [employer] [place] 1.015 (1.000-1.030) 05/24/17 08:44 Urine Protein 3+ (NEGATIVE) 05/24/17 08:44 Urine Glucose (UA) Negative (NEGATIVE) 05/24/17 08:44 Urine Ketones Negative (NEGATIVE) 05/24/17 08:44 Urine Occult Blood 2+ (NEGATIVE) 05/24/17 08:44 Urine Nitrite Negative (NEGATIVE) 05/24/17 08:44 Urine Bilirubin Negative (NEGATIVE) 05/24/17 08:44 Urine Urobilinogen Normal (NORMAL) 05/24/17 08:44 Ur Leukocyte Esterase 1+ (NEGATIVE) 05/24/17 08:44 Urine RBC Rare /HPF (NEGATIVE) 05/24/17 08:44 Urine WBC Rare /HPF (NEGATIVE) 05/24/17 08:44 Ur Squamous Epith Cells Rare /HPF (NEGATIVE) 05/24/17 08:44 Urine Bacteria Negative /HPF (NEGATIVE) 05/24/17 08:44 Ur Culture Indicated? No/not indicated 05/24/17 08:44 - Plan (1) Atrial fibrillation with rapid ventricular response Status: Acute Plan: CARDIZEM CD 240MG DAILY, TELEMETRY, SUPPLEMENTAL OXYGEN, CONTINUE TO MONITOR (2) Laceration of right lower extremity Status: Acute Qualifiers: Encounter type: initial encounter Qualified Code(s): S81.811A - Laceration without foreign body, right lower leg, initial encounter Plan: WOUND CARE, CONTINUE TO MONITOR (3) Uncontrolled hypertension Status: Acute Plan: CONTINUE LISINOPRIL 20MG PO BID, CONTINUE LOPRESSOR 25MG PO BID, CONTINUE LABETALOL PROTOCOL, CONTINUE TO MONITOR
== END 2017-05-26 16:35 | disposition short-term general hospital (02) ==
LOC: ER 07:46 → ICU 09:56
PROVIDERS: ADMIT Internal Medicine; ATTEND Internal Medicine
DX: S81.811A Laceration without foreign body, right lower leg, initial encounter; S80.11XA Contusion of right lower leg, initial encounter; E87.6 Hypokalemia; Y92.89 Other specified places as the place of occurrence of the external cause; W00.0XXA Fall on same level due to ice and snow, initial encounter; I10 Essential (primary) hypertension; I48.91 Unspecified atrial fibrillation; R07.89 Other chest pain; S81.812A Laceration without foreign body, left lower leg, initial encounter; N18.3 Chronic kidney disease, stage 3 (moderate); K21.9 Gastro-esophageal reflux disease without esophagitis; R94.31 Abnormal electrocardiogram [ECG] [EKG]; I25.10 Atherosclerotic heart disease of native coronary artery without angina pectoris
CPT/HCPCS: 12002; 36415; 71010; 71045; 73564; 80053; 80061; 81001; 82550; 82553; 83735; 84132; 84484; 85025; 85610; 85730; 90471; 90715; 93005; 93041; 96365; 96367; 96374; 96375; 99284; 99285; A4216; A4222; C9113; J0696; J1650; J1885; J1940; J2270; J3490; J7030; J7050; J8499

== ENCOUNTER 2017-06-13 20:38 | Inpatient (IN) | payer OTHER ==
--- NOTE | 2017-06-13 21:02 | DR.GENAD ---
HPI - PCP Primary Care Physician: RADHA - Complaint/Symptoms Chief Complaint Doctors Comments: Patient presents with complaint of chest pain all day. Onset of pain Four days ago. He reports that he was sent to [facility] for cardioversion two weeks ago. Chief Complaint:: CHEST PAIN LASTING ALL DAY - Source History Provided: Patient - Mode of Arrival Mode of Arrival: Ambulatory - Timing Onset of Chief Complaint: 06/13/17 PMH - PMH Past Medical History: Yes Past Medical History: Coronary Artery Disease, CVA, GERD, Hypertension, [place] Past Surgical History: Yes Surgical History: Abdominal Surgery, Ortho Surgery - Family History History of Family Medical Conditions: Yes Family Medical History: Diabetes Mellitus, Cancer, Coronary Artery Disease, Hypertension - Social History Does patient currently use any type of tobacco product: No Have you used tobacco products in the last 12 months: No Alcohol Use: None Do you use any recreational Drugs:: No Lives With: Family Lives Where: Home - infectious screening In the last 2 months have you had wt loss of >10#?: NO Have you had fever, night sweats or hemotysis?: No Have you traveled outside the country in the last 6 months?: No Isolation: Standard ROS - Review of Systems Constitutional: No Symptoms Reported Eyes: No Symptoms Reported ENTM: No Symptoms Reported Respiratoy: No Symptoms Reported Cardiovascular: Other (arrhythmia) Gastrointestinal/Abdominal: No Symptoms Reported Genitourinary: No Symptoms Reported Neurological: No Symptoms Reported Musculoskeletal: No Symptoms Reported Integumentary: No Symptoms Reported Hematologic/Lymphatic: No Symptoms Reported Endocrine: No Symptoms Reported Psychiatric: No Symptoms Reported PE - Vital Signs Vitals: Temperature 98.3 F Pulse Rate 105 Respiratory Rate 17 Blood Pressure [Left Arm] 158/91 Blood Pressure [Right Arm] 151/101 Blood Pressure 129/87 O2 Sat by Pulse Oximetry 98 - General Limitations: No Limitations General Appearance: Alert, In No Apparent Distress - Head Head Exam: Normal Inspection, Atraumatic - Eyes Eye exam: Normal Appearance, PERRL, EOMI - ENT ENT Exam: Normal Exam External Ear Exam: Normal External Inspection TM/Canal Exam: Bilateral Normal Nose Exam: Normal Nose Exam Mouth Exam: Normal Inspection Throat Exam: Normal Inspection - Neck Neck Exam: Normal Inspection, Full ROM - Chest Chest Inspection: Normal Inspection - Respiratory Respiratory Exam: Normal Lung Sounds Bilat Respiratory Exam: Bilateral Clear to Auscultation - Cardiovascular Cardiovascular Exam: Irregular Rhythm - Abdominal Exam Abdominal Exam: Normal Inspection Abdominal Tenderness: negative: RUQ, RLQ, LUQ, LLQ, Epigastrium, Suprapubic, Diffuse, Mild, Moderate, Severe, Other - Extremities Extremities Exam: Tenderness (right lower elxtremity with healing wound, warm to touch with dried blood in wound), Edema (right lower extremity) - Back Back Exam: Normal Inspection, Full ROM - Neurologic Neurological Exam: Alert, Oriented X3, CN II-XII Intact - Psychiatric Psychiatric Exam: Normal Affect, Normal Mood - Skin Skin Exam: Warm, Rash (healing cut to right lower extremity anteriorally) Course - Reevaluation 1st: Unchanged - Consultation Called: 22:50 (Dr Maradiaga agreed to admit for further evaluation) ROR - Labs Reviewed Result Diagrams: 06/13/17 21:17 06/13/17 21:17 Laboratory: WBC 6.4 X10^3/uL (3.6-10.0) 06/13/17 21:17 RBC 3.75 X10^6/uL (4.7-6.0) L 06/13/17 21:17 Hgb 12.0 g/dL (13.5-18.0) L 06/13/17 21:17 Hct 35.6 % (42.0-54.0) L 06/13/17 21:17 MCV 94.8 fL (80.0-100.0) 06/13/17 21:17 MCH 32.1 pg (27.0-34.0) 06/13/17 21:17 MCHC 33.9 g/dL (33.0-35.0) 06/13/17 21:17 RDW 14.8 % (11.6-16.5) 06/13/17 21:17 Plt Count 207 X10^3/uL (150.0-450.0) 06/13/17 21:17 MPV 9.3 fL (7.4-11.0) 06/13/17 21:17 Neut % 71.9 % (42.0-75.0) 06/13/17 21:17 Lymph % 19.6 % (21.0-51.0) L 06/13/17 21:17 [place] % 5.3 % (0.0-13.0) 01/26/18 21:17 Eos % 2.0 % (0.9-2.9) 06/13/17 21:17 Baso % 1.2 % (0.2-1.0) H 06/13/17 21:17 Neut # 4.6 x10^3/uL (2.2-4.8) 06/13/17 21:17 Lymph # 1.3 X10^3/uL (1.3-2.9) 06/13/17 21:17 [place] # 0.3 x10^3/uL (0.3-0.8) 06/13/17 21:17 Eos # 0.1 x10^3/uL (0.0-0.2) 06/13/17 21:17 Baso # 0.1 X10^3/uL (0.0-0.1) 06/13/17 21:17 Absolute Nucleated RBC 0.0 /100WBC 06/13/17 21:17 INR Target Range - 06/13/17 21:17 INR 1.42 (0.8-1.3) H 06/13/17 21:17 PTT 30.7 SECONDS (22.9-36.5) 06/13/17 21:17 PTT Comment - 06/13/17 21:17 Sodium 139 mmol/L (136-145) 06/13/17 21:17 Corrected Sodium 141 mmol/L (136-145) 06/13/17 21:17 Potassium 3.5 mmol/L (3.5-5.1) 06/13/17 21:17 Chloride 107 mmol/L (98-107) 06/13/17 21:17 Carbon Dioxide 24.0 mmol/L (21-32) 06/13/17 21:17 BUN 33 mg/dL (7-18) H 06/13/17 21:17 Creatinine 1.74 mg/dL (0.70-1.30) H 06/13/17 21:17 Est GFR (MDRD) Af Amer 51 (>60) L 06/13/17 21:17 Est GFR (MDRD) Non-Af 42 (>60) L 06/13/17 21:17 Glucose 179 mg/dL (65-99) H 06/13/17 21:17 Lactic Acid 1.0 mmol/L (0.4-2.0) 06/13/17 21:15 Calcium 8.8 mg/dL (8.5-10.1) 06/13/17 21:17 Corrected Calcium 9.4 mg/dL (8.5-10.1) 06/13/17 21:17 Magnesium 1.9 mg/dL (1.7-2.9) 06/13/17 21:17 Total Bilirubin 0.40 mg/dL (0.2-1.0) 06/13/17 21:17 AST 15 Units/L (15-37) 06/13/17 21:17 ALT 19 Units/L (12-78) 06/13/17 21:17 Alkaline Phosphatase 99 Units/L (46-116) 06/13/17 21:17 Creatine Kinase 54 Units/L (39-308) 06/13/17 21:17 CK-MB (CK-2) < 1.0 ng/mL (0-4.0) 06/13/17 21:17 CK/CKMB % Calc 1.9 % (<4) 06/13/17 21:17 Troponin I 0.02 ng/mL (0-1.5) 06/13/17 21:17 C-Reactive Protein 2.30 mg/L (0-3.0) 06/13/17 21:17 Total Protein 6.4 g/dL (6.4-8.2) 06/13/17 21:17 Albumin 3.2 g/dL (3.4-5.0) L 06/13/17 21:17 Globulin 3.2 g/dL (2.5-4.5) 06/13/17 21:17 Albumin/Globulin Ratio 1.0 Ratio (1.1-2.1) L 06/13/17 21:17 - XRAY XRAY Interpreted by: Radiologist (Chest. The cardiac silhouette is enlarged but unchanged. Increased prominence of the perihilar vasculature with some cephalization of vessels and diffuse alveolar interstitial markings. No obvious focal consolidation, pleural effusion or penumothorax. Impression: constillation of findings likely representing pulmonary edema secondary to congestive heart failure. Underlying infiltrate not entirely excluded.) - EKG Rhythm: Afib - Diagnosis Discharge Problem: Dehydration, mild Chest pain Qualifiers: Chest pain type: unspecified Qualified Code(s): R07.9 - Chest pain, unspecified Infected superficial foreign body of right lower extremity Qualifiers: Encounter type: subsequent encounter Qualified Code(s): S80.851D - Superficial foreign body, right lower leg, subsequent encounter; L08.9 - Local infection of the skin and subcutaneous tissue, unspecified; L08.9 - Local infection of the skin and subcutaneous tissue, unspecified - Discharge Plan Condition: Stable - Follow ups/Referrals Follow ups/Referrals: KERRY MARADIAGA [Primary Care Provider] - 3 days - Instructions
[2017-06-13 21:28] LABS: BASOPHILS # (AUTO) 0.1 X10^3/uL (0.0-0.1); BASOPHILS % (AUTO) 1.2 % (0.2-1.0); EOSINOPHILS # (AUTO) 0.1 x10^3/uL (0.0-0.2); HEMATOCRIT 35.6 % (42.0-54.0); LYMPHOCYTES # (AUTO) 1.3 X10^3/uL (1.3-2.9); LYMPHOCYTES % (AUTO) 19.6 % (21.0-51.0); MEAN CORPUSCULAR HEMOGLOBIN 32.1 pg (27.0-34.0); MEAN CORPUSCULAR HGB CONC 33.9 g/dL (33.0-35.0); MEAN CORPUSCULAR VOLUME 94.8 fL (80.0-100.0); MEAN PLATELET VOLUME 9.3 fL (7.4-11.0); MONOCYTES # (AUTO) 0.3 x10^3/uL (0.3-0.8); MONOCYTES % (AUTO) 5.3 % (0.0-13.0); NEUTROPHILS # (AUTO) 4.6 x10^3/uL (2.2-4.8); NEUTROPHILS % (AUTO) 71.9 % (42.0-75.0); PLATELET COUNT 207 X10^3/uL (150.0-450.0); RED BLOOD COUNT 3.75 X10^6/uL (4.7-6.0); RED CELL DISTRIBUTION WIDTH 14.8 % (11.6-16.5); WHITE BLOOD COUNT 6.4 X10^3/uL (3.6-10.0)
--- NOTE | 2017-06-13 21:29 | RAD ---
HISTORY: Chest pain. Study: Portable chest. Comparison: Chest x-ray dated May 26, 2017. Findings: The trachea is midline. The cardiac silhouette is enlarged but unchanged. Increased prominence of th e perihilar vasculature, with some cephalization of vessels and diffuse alveolar/interstitial marking s. No obvious focal consolidation, pleural effusion, or pneumothorax.. The bony thorax is unremarka ble. IMPRESSION: Constellation of findings likely representing pulmonary edema secondary to congestive hea rt failure. Underlying infiltrate not entirely excluded. Reported By:
[2017-06-13 21:50] LABS: BLOOD UREA NITROGEN 33 mg/dL (7-18); CALCIUM 8.8 mg/dL (8.5-10.1); CHLORIDE 107 mmol/L (98-107); COR NA(FOR HYPERGLY) 141 mmol/L (136-145); CREATININE 1.74 mg/dL (0.70-1.30); SODIUM 139 mmol/L (136-145); TROPONIN I 0.02 ng/mL (0-1.5); eGFR BLACK RACES 51 (>60); eGFR NON BLACK RACES 42 (>60)
[2017-06-13 21:54] LABS: ALANINE AMINOTRANSFERASE 19 Units/L (12-78); ALBUMIN 3.2 g/dL (3.4-5.0); ALKALINE PHOSPHATASE 99 Units/L (46-116); ASPARTATE AMINO TRANSFERASE 15 Units/L (15-37); CKMB % 1.9 % (<4); COR CA(FOR HYPOALB) 9.4 mg/dL (8.5-10.1); CREATINE KINASE 54 Units/L (39-308); CREATINE KINASE MB < 1.0 ng/mL (0-4.0); MAGNESIUM 1.9 mg/dL (1.7-2.9); TOTAL PROTEIN 6.4 g/dL (6.4-8.2)
[2017-06-13] MEDS ORDERED: NS 1000 ML 1,000 ML IV SCH (22:00)
[2017-06-14 01:29] VITALS: BMI 32.1
[2017-06-14] MEDS: NS 1000 ML 1,000 ML IV SCH ×4 (02:11→16:43)
[2017-06-14 06:03] LABS: ALANINE AMINOTRANSFERASE 17 Units/L (12-78); ALKALINE PHOSPHATASE 90 Units/L (46-116); ASPARTATE AMINO TRANSFERASE 14 Units/L (15-37); BLOOD UREA NITROGEN 28 mg/dL (7-18); CALCIUM 8.5 mg/dL (8.5-10.1); CHLORIDE 108 mmol/L (98-107); CKMB % 2.1 % (<4); COR CA(FOR HYPOALB) 9.3 mg/dL (8.5-10.1); CREATINE KINASE 48 Units/L (39-308); CREATINE KINASE MB < 1.0 ng/mL (0-4.0); CREATININE 1.61 mg/dL (0.70-1.30); SODIUM 140 mmol/L (136-145); TROPONIN I 0.02 ng/mL (0-1.5); eGFR BLACK RACES 56 (>60); eGFR NON BLACK RACES 46 (>60)
[2017-06-14] MEDS: APRESOLINE TAB 25 MG PO SCH ×3 (06:35→16:41)
[2017-06-14] MEDS ORDERED: PATIENT'S HOME MEDICATION (Hydralazine Hcl [Hydralazine Hcl] 1 TAB) PO SCH (07:00)
[2017-06-14] MEDS ORDERED: POTASSIUM CHL 60 MEQ/NS 0.45% 500 ML IV PRN (07:02)
[2017-06-14] MEDS ORDERED: POTASSIUM CHL 40 MEQ/NS 0.45% 500 ML IV PRN (07:02)
[2017-06-14] MEDS ORDERED: MAGNESIUM SULFATE 1 GM/100 mL PREMIX 1 GM/100 ML BAG IV PRN (07:02)
[2017-06-14] MEDS ORDERED: K-LYTE EFFERVESCENT PO PRN (07:02)
[2017-06-14] MEDS ORDERED: MAG-OX TAB PO PRN (07:02)
[2017-06-14] MEDS ORDERED: K-RIDER 10 MEQ/NS 100 ML 10 MEQ/100 ML BAG IV PRN (07:02)
[2017-06-14] MEDS ORDERED: POTASSIUM CHLORIDE LIQ 20 MEQ UDC PO PRN (07:02)
[2017-06-14 07:03] LABS: BILIRUBIN,URINE NEGATIVE (NEGATIVE); BLOOD/HEMOGLOBIN,URINE NEGATIVE (NEGATIVE); GLUCOSE, URINE NEGATIVE (NEGATIVE); KETONES,URINE NEGATIVE (NEGATIVE); LEUKOCYTE ESTERASE ,URINE NEGATIVE (NEGATIVE); NITRITES,URINE NEGATIVE (NEGATIVE); PROTEIN,URINE 1+ (NEGATIVE); UROBILINOGEN,URINE NORMAL (NORMAL)
[2017-06-14 07:08] LABS: APPEARANCE,URINE HAZY (CLEAR); COLOR,URINE YELLOW (YELLOW)
[2017-06-14 07:10] LABS: BACTERIA,URINE NEGATIVE /HPF (NEGATIVE); RBC,URINE 0-2 /HPF (NEGATIVE); SQUAMOUS EPITHELIAL CELL,UR NEGATIVE /HPF (NEGATIVE)
[2017-06-14] MEDS ORDERED: FLOMAX PO SCH (09:00)
[2017-06-14] MEDS ORDERED: ZESTRIL TAB 40 MG PO SCH (09:00)
[2017-06-14] MEDS ORDERED: CORDARONE TAB 200 MG PO SCH (09:00)
[2017-06-14] MEDS ORDERED: LOPRESSOR TAB 25 MG PO SCH (09:00)
[2017-06-14] MEDS ORDERED: NORCO 5/325 MG TAB PO PRN (10:56)
[2017-06-14 11:04] LABS: CREATINE KINASE 51 Units/L (39-308); CREATINE KINASE MB < 1.0 ng/mL (0-4.0); TROPONIN I 0.02 ng/mL (0-1.5)
[2017-06-14] MEDS ORDERED: MORPHINE SULFATE INJ 2 MG INJ IVP PRN (12:19)
[2017-06-14] MEDS ORDERED: LEVSIN/MAALOX/LIDOC VISC PO ONE (13:50)
[2017-06-14] MEDS ORDERED: NITROSTAT SL PRN (14:16)
[2017-06-14] MEDS ORDERED: ASPIRIN 81 MG CHEWTAB PO STA (16:25)
[2017-06-14] MEDS ORDERED: NITROGLYCERIN IV PREMIX 50 MG 50 MG/250 ML BAG IV PRN (16:26)
[2017-06-14] MEDS ORDERED: ASPIRIN EC 81 MG PO ONE (16:28)
[2017-06-14 16:30] VITALS: BP 126/72
[2017-06-14] MEDS ORDERED: TEFLARO IV ONE (16:32)
[2017-06-14] MEDS ORDERED: NS 100 ML IV 100 ML IV ONE (16:33)
[2017-06-14] MEDS ORDERED: TEFLARO 600 MG in NS 100 ML IV + SPIKE MINIBAG* 100 ML IV SCH (17:00)
[2017-06-14 17:18] LABS: CREATINE KINASE 50 Units/L (39-308); CREATINE KINASE MB < 1.0 ng/mL (0-4.0); TROPONIN I < 0.02 ng/mL (0-1.5)
[2017-06-14] MEDS ORDERED: COUMADIN TAB 5 MG PO SCH (21:00)
[2017-06-14] MEDS ORDERED: LIPITOR TAB 20 MG PO SCH (21:00)
== END 2017-06-14 18:00 | disposition short-term general hospital (02) | DRG 313 ==
LOC: ER 20:43 → UNDOADMIN 23:38 → ICU 23:38 → UNDODISIN 06-14 18:00
PROVIDERS: ADMIT Internal Medicine; ATTEND Internal Medicine
DX: R07.89 Other chest pain (principal); E86.0 Dehydration; I48.91 Unspecified atrial fibrillation; J81.0 Acute pulmonary edema; I25.10 Atherosclerotic heart disease of native coronary artery without angina pectoris; S81.831A Puncture wound without foreign body, right lower leg, initial encounter; L03.115 Cellulitis of right lower limb; Z91.81 History of falling; R94.4 Abnormal results of kidney function studies; I10 Essential (primary) hypertension; K21.9 Gastro-esophageal reflux disease without esophagitis; X58.XXXA Exposure to other specified factors, initial encounter; Y92.89 Other specified places as the place of occurrence of the external cause
CPT/HCPCS: 36415; 71045; 80053; 81001; 82550; 82553; 83605; 83735; 84484; 85025; 85610; 85730; 86140; 87040; 93005; 93010; 96365; 96367; 99284; A4216; A4222; G0378; J0712; J2270

== ENCOUNTER 2017-07-01 17:14 | Inpatient (IN) | payer OTHER ==
[2017-07-01 17:56] VITALS: BMI 32.3
--- NOTE | 2017-07-01 17:58 | DR.H&P ---
H&P - History & Physical for Day of: H&P Date: 07/01/17 - Chief Complaint Chief Complaint: RLE PAIN AND REDNESS, OPEN WOUND - Allergies Allergies/Adverse Reactions: Allergies Allergy/AdvReac Type Severity Reaction Status Date / Time No Known Drug Allergies Allergy Verified 04/16/17 17:50 - History of Present Illness History of Present Illness: 66 WM DIRECT ADMIT FROM DR CALLES OFFICE WITH CO RIGHT LOWER EXTREMITY PAIN. PT HAD AN INJURY SEVERAL WEEKS AGO AFTER FALL FROM SLIPPING ON SNOW, PT HAD BEEN RECEIVING WOUND CARE BY HOME HEALTH AND TAKING ORAL ATBX WITHOUT IMPROVEMENT. PT CO INCREASED PAIN TO RLE AND REDNESS. PT HAD PMH OF UNCONTROLLED HTN, CAD, CHF, AFIB AND ANTI- COAG USE. PT ADMITTED FOR IV ATBX AND EVALUATION OF PAIN - Past Medical History Past Medical History: Coronary Artery Disease, CVA, GERD, Hypertension, [place] - Past Surgical History Surgical History: Abdominal Surgery, Ortho Surgery, Tonsillectomy - Family History Family Medical History: Diabetes Mellitus, Cancer, Coronary Artery Disease, Hypertension - Social History Does patient currently use any type of tobacco product: No Have you used tobacco products in the last 12 months: No Type of Tobacco Use: None Does any household member use tobacco: Yes Alcohol Use: Occasionally Drug Use: Prescription Drugs - Review of Systems Constitutional: No Symptoms Reported Eyes: No Symptoms Reported ENT: No Symptoms Reported Respiratory: SOB with Excertion Cardiovascular: No Symptoms Reported, Edema Gastrointestinal: No Symptoms Reported Genitourinary: No Symptoms Reported Musculoskeletal: Leg Pain Skin: Wound Neurological: No Symptoms Reported - Physical Exam Vital Signs: Blood Pressure [Left Arm] 126/72 Blood Pressure [Right Arm] 151/101 Blood Pressure 126/72 Oriented: Normal Eyes: Normal Ear: Normal Nose: Normal Throat: Normal Respiratory: RLL Diminished, LLL Diminished Cardiovascular: Normal : Normal Auscultation: Bowel Sounds: Normal Tenderness: Normal Skin: Red, Tender, Hot, Wound (2CM X 2CM OPEN WOUND TO RLE WITH INCREASED LOCALIZED REDNESS, INCREASED WARMTH AND EDEMA) Musculoskeletal: Right, Leg Psychiatric: Depression Speech Pattern: Clear - Assessment/Plan (1) Cellulitis of right leg Status: Acute Plan: ADMIT, ADMISSION LABS. BC, WOUND CULTURE. IV ATBX, CONSULT DR BASS (2) Open wound, lower leg Status: Acute (3) Atrial fibrillation Status: Acute (4) Hypertension Qualifiers: Hypertension type: essential hypertension Qualified Code(s): I10 - Essential (primary) hypertension Status: Acute
[2017-07-01] MEDS ORDERED: PHARMACY CONSULT - DOSE _____ XX SCH (18:07)
[2017-07-01 18:47] LABS: BASOPHILS # (AUTO) 0.1 X10^3/uL (0.0-0.1); BASOPHILS % (AUTO) 0.9 % (0.2-1.0); EOSINOPHILS # (AUTO) 0.1 x10^3/uL (0.0-0.2); EOSINOPHILS % (AUTO) 0.8 % (0.9-2.9); HEMATOCRIT 37.7 % (42.0-54.0); HEMOGLOBIN 12.7 g/dL (13.5-18.0); LYMPHOCYTES % (AUTO) 7.6 % (21.0-51.0); MEAN CORPUSCULAR HEMOGLOBIN 31.7 pg (27.0-34.0); MEAN CORPUSCULAR HGB CONC 33.6 g/dL (33.0-35.0); MEAN CORPUSCULAR VOLUME 94.5 fL (80.0-100.0); MEAN PLATELET VOLUME 8.5 fL (7.4-11.0); MONOCYTES # (AUTO) 0.7 x10^3/uL (0.3-0.8); MONOCYTES % (AUTO) 5.9 % (0.0-13.0); NEUTROPHILS # (AUTO) 10.6 x10^3/uL (2.2-4.8); NEUTROPHILS % (AUTO) 84.8 % (42.0-75.0); PLATELET COUNT 305 X10^3/uL (150.0-450.0); RED BLOOD COUNT 3.99 X10^6/uL (4.7-6.0); RED CELL DISTRIBUTION WIDTH 14.1 % (11.6-16.5); WHITE BLOOD COUNT 12.6 X10^3/uL (3.6-10.0)
[2017-07-01 18:59] LABS: ALANINE AMINOTRANSFERASE 22 Units/L (12-78); ALBUMIN 3.8 g/dL (3.4-5.0); ALKALINE PHOSPHATASE 112 Units/L (46-116); ASPARTATE AMINO TRANSFERASE 13 Units/L (15-37); BLOOD UREA NITROGEN 35 mg/dL (7-18); CALCIUM 9.1 mg/dL (8.5-10.1); CARBON DIOXIDE 30.1 mmol/L (21-32); CHLORIDE 101 mmol/L (98-107); CREATININE 1.97 mg/dL (0.70-1.30); SODIUM 139 mmol/L (136-145); TOTAL PROTEIN 7.7 g/dL (6.4-8.2); eGFR BLACK RACES 44 (>60); eGFR NON BLACK RACES 37 (>60)
[2017-07-01 19:24] LABS: ERYTHROCYTE SEDIMENTATION RATE 26 MM/HOUR (0-15)
[2017-07-01] MEDS: PERCOCET TAB 5/325 MG PO PRN (19:48)
[2017-07-01] MEDS: VANCOMYCIN HCL 500 MG VIAL 750 MG in D5W 250 ML IV 250 ML IV SCH (21:03)
[2017-07-01] MEDS: NS 250 ML IV 250 ML IV SCH (21:50)
--- NOTE | 2017-07-01 22:40 | RAD ---
HISTORY: Open wound. History fall. Cellulitis. Study: Right tibia and fibula, two views Comparison: None. Findings: There is a soft tissue defect anterior to the tibia, approximately 6.5 cm is below the knee joint. AP and lateral radiographs of the lower extremity demonstrate no evidence for acute cortical disruption . IMPRESSION: 1. Soft tissue defect along the anterior aspect of the right lower extremity, approximately 6.5 cm b elow the knee. No acute osseous abnormalities identified. Reported By:
[2017-07-02 06:18] LABS: BASOPHILS # (AUTO) 0.1 X10^3/uL (0.0-0.1); BASOPHILS % (AUTO) 0.5 % (0.2-1.0); EOSINOPHILS # (AUTO) 0.1 x10^3/uL (0.0-0.2); EOSINOPHILS % (AUTO) 0.4 % (0.9-2.9); HEMOGLOBIN 11.8 g/dL (13.5-18.0); LYMPHOCYTES # (AUTO) 1.1 X10^3/uL (1.3-2.9); LYMPHOCYTES % (AUTO) 7.9 % (21.0-51.0); MEAN CORPUSCULAR HEMOGLOBIN 32.1 pg (27.0-34.0); MEAN CORPUSCULAR HGB CONC 34.7 g/dL (33.0-35.0); MEAN CORPUSCULAR VOLUME 92.6 fL (80.0-100.0); MONOCYTES # (AUTO) 0.9 x10^3/uL (0.3-0.8); MONOCYTES % (AUTO) 6.7 % (0.0-13.0); NEUTROPHILS # (AUTO) 11.4 x10^3/uL (2.2-4.8); NEUTROPHILS % (AUTO) 84.5 % (42.0-75.0); PLATELET COUNT 221 X10^3/uL (150.0-450.0); RED BLOOD COUNT 3.67 X10^6/uL (4.7-6.0); WHITE BLOOD COUNT 13.5 X10^3/uL (3.6-10.0)
[2017-07-02 07:05] LABS: ALANINE AMINOTRANSFERASE 18 Units/L (12-78); ALKALINE PHOSPHATASE 92 Units/L (46-116); ASPARTATE AMINO TRANSFERASE 11 Units/L (15-37); BLOOD UREA NITROGEN 25 mg/dL (7-18); CALCIUM 8.5 mg/dL (8.5-10.1); CARBON DIOXIDE 24.6 mmol/L (21-32); CHLORIDE 102 mmol/L (98-107); COR CA(FOR HYPOALB) 9.3 mg/dL (8.5-10.1); CREATININE 1.35 mg/dL (0.70-1.30); SODIUM 137 mmol/L (136-145); TOTAL PROTEIN 6.6 g/dL (6.4-8.2); eGFR BLACK RACES > 60 (>60); eGFR NON BLACK RACES 57 (>60)
[2017-07-02] MEDS ORDERED: K-RIDER 10 MEQ/NS 100 ML 10 MEQ/100 ML BAG IV PRN (08:11)
[2017-07-02] MEDS ORDERED: POTASSIUM CHLORIDE LIQ 20 MEQ UDC PO PRN (08:11)
[2017-07-02] MEDS ORDERED: MAGNESIUM SULFATE 1 GM/100 mL PREMIX 1 GM/100 ML BAG IV PRN (08:11)
[2017-07-02] MEDS ORDERED: POTASSIUM CHL 60 MEQ/NS 0.45% 500 ML IV PRN (08:11)
[2017-07-02] MEDS: VANCOMYCIN HCL 500 MG VIAL 750 MG in D5W 250 ML IV 250 ML IV SCH ×2 (08:40→21:00)
[2017-07-02] MEDS ORDERED: NS 1000 ML 1,000 ML ONE (08:43)
[2017-07-02] MEDS ORDERED: FENTANYL INJ 100 mcg ONE (09:28)
[2017-07-02] MEDS: XYLOCAINE 1 % (PLAIN) ONE ×2 (09:28→09:53)
[2017-07-02] MEDS ORDERED: NS IRRIGATION 1000 ML 1,000 ML with BACITRACIN VIAL 50,000 UNT IR ONE ×2 (09:53)
[2017-07-02] MEDS ORDERED: VERSED ONE (10:08)
[2017-07-02] MEDS ORDERED: NORMODYNE INJ 100 MG VIAL ONE (10:08)
[2017-07-02] MEDS ORDERED: DIPRIVAN VIAL ONE (10:08)
--- NOTE | 2017-07-02 10:23 | OR.GENERIC ---
Post-Op Note Generic - Post-Op Note Operative Report: PO note : see OR report .. excisional debridement of Rt leg ulcer 3 x 2 x 3 cm was done . packed with Iodoform . the tibia was exposed . the Lt leg wound is superficial same IV Vancomycin and local care .
[2017-07-02] MEDS: LOPRESSOR TAB 25 MG PO SCH ×2 (11:56→20:58)
[2017-07-02] MEDS: PROCARDIA XL PO SCH (11:56)
[2017-07-02] MEDS: APRESOLINE TAB 25 MG PO SCH ×2 (15:00→22:00)
[2017-07-02] MEDS: K-LYTE EFFERVESCENT PO PRN (15:07)
[2017-07-02] MEDS: MAG-OX TAB PO PRN (15:07)
[2017-07-02] MEDS: NS 250 ML IV 250 ML IV SCH ×2 (17:03→23:30)
[2017-07-02] MEDS: LIPITOR TAB 40 MG PO SCH (20:58)
[2017-07-02] MEDS: PERCOCET TAB 5/325 MG PO PRN (20:58)
[2017-07-03 06:12] LABS: BASOPHILS # (AUTO) 0.1 X10^3/uL (0.0-0.1); BASOPHILS % (AUTO) 1.2 % (0.2-1.0); EOSINOPHILS # (AUTO) 0.2 x10^3/uL (0.0-0.2); EOSINOPHILS % (AUTO) 2.1 % (0.9-2.9); HEMATOCRIT 35.6 % (42.0-54.0); HEMOGLOBIN 12.2 g/dL (13.5-18.0); LYMPHOCYTES # (AUTO) 1.2 X10^3/uL (1.3-2.9); MEAN CORPUSCULAR HEMOGLOBIN 32.1 pg (27.0-34.0); MEAN CORPUSCULAR HGB CONC 34.3 g/dL (33.0-35.0); MEAN CORPUSCULAR VOLUME 93.7 fL (80.0-100.0); MEAN PLATELET VOLUME 8.6 fL (7.4-11.0); MONOCYTES # (AUTO) 0.6 x10^3/uL (0.3-0.8); MONOCYTES % (AUTO) 8.6 % (0.0-13.0); NEUTROPHILS # (AUTO) 5.3 x10^3/uL (2.2-4.8); NEUTROPHILS % (AUTO) 72.1 % (42.0-75.0); PLATELET COUNT 237 X10^3/uL (150.0-450.0); RED CELL DISTRIBUTION WIDTH 14.1 % (11.6-16.5); WHITE BLOOD COUNT 7.3 X10^3/uL (3.6-10.0)
[2017-07-03] MEDS: APRESOLINE TAB 25 MG PO SCH ×3 (06:12→21:17)
[2017-07-03 06:36] LABS: ALANINE AMINOTRANSFERASE 16 Units/L (12-78); ALBUMIN 2.9 g/dL (3.4-5.0); ALKALINE PHOSPHATASE 86 Units/L (46-116); ASPARTATE AMINO TRANSFERASE 11 Units/L (15-37); BLOOD UREA NITROGEN 19 mg/dL (7-18); CALCIUM 8.6 mg/dL (8.5-10.1); CARBON DIOXIDE 25.7 mmol/L (21-32); CHLORIDE 104 mmol/L (98-107); COR CA(FOR HYPOALB) 9.5 mg/dL (8.5-10.1); CREATININE 1.35 mg/dL (0.70-1.30); SODIUM 140 mmol/L (136-145); TOTAL PROTEIN 6.6 g/dL (6.4-8.2); eGFR BLACK RACES > 60 (>60); eGFR NON BLACK RACES 57 (>60)
[2017-07-03 07:22] LABS: MAGNESIUM 1.8 mg/dL (1.7-2.9)
[2017-07-03 07:28] LABS: CREATININE 1.39 mg/dL (0.70-1.30)
[2017-07-03] MEDS: PERCOCET TAB 5/325 MG PO PRN ×2 (07:43→15:08)
[2017-07-03] MEDS ORDERED: HYDROGEN PEROXIDE 3% ONE (09:25)
[2017-07-03] MEDS ORDERED: BACTROBAN OINT ONE (09:28)
[2017-07-03] MEDS ORDERED: BACTROBAN OINT TOP ONE (10:00)
[2017-07-03] MEDS ORDERED: ZESTRIL TAB 20 MG ONE (10:02)
[2017-07-03] MEDS: VANCOMYCIN HCL 1 GM VIAL 1 GM in D5W 250 ML IV 250 ML IV SCH ×2 (10:07→21:17)
[2017-07-03] MEDS: LOPRESSOR TAB 25 MG PO SCH ×2 (10:08→21:17)
[2017-07-03] MEDS: FLOMAX PO SCH (10:08)
[2017-07-03] MEDS: PROCARDIA XL PO SCH (10:08)
[2017-07-03] MEDS: ZESTRIL TAB 20 MG PO SCH (10:08)
--- NOTE | 2017-07-03 10:08 | PCM.PROG ---
Progress Note - Progress Note for Day of Date: 07/03/17 - Subjective Subjective: less pain Rt leg wound . minimal drainage and swelling . no fever . culture showed Staph coag + - Past Medical Family Social History Allergies: Allergies No Known Drug Allergies Allergy (Verified 04/16/17 17:50) - Vital Signs and I&O's Vital Signs: Temperature 98.7 F Pulse Rate [Radial] 93 Pulse Rate [Apical] 105 Pulse Rate 97 Respiratory Rate 22 Blood Pressure [Left Arm] 131/92 Blood Pressure [Right Arm] 175/105 Blood Pressure 162/104 O2 Sat by Pulse Oximetry 96 Intake and Output: Intake & Output 06/30/17 07/01/17 07/02/17 07/03/17 11:59 11:59 11:59 11:59 Intake Total 430 960 Output Total 1595 1650 Balance -1165 -690 - Physical Exam Oriented: Normal Eyes: Normal Ear: Normal Nose: Normal Throat: Normal Cardiovascular: Normal : Normal Auscultation: Bowel Sounds: Normal Tenderness: Normal Skin: Wound (dressing was changed and packing was removed .. less erythema .. the wound is deep about 4 cm . no necrosis . still moderate associated celuuliris ) Musculoskeletal: Right, Leg Psychiatric: Depression Speech Pattern: Clear, Appropriate - Laboratory and Diagnostics Result Diagrams: 07/03/17 05:50 07/03/17 05:50 Labs: 07/02/17 10:40 Leg - Right Gram Stain - Final 07/02/17 10:40 Leg - Right Wound Culture - Preliminary 07/01/17 18:24 Leg - Right Gram Stain - Final 07/01/17 18:24 Leg - Right Wound Culture - Preliminary Laboratory WBC 7.3 X10^3/uL (3.6-10.0) 07/03/17 05:50 RBC 3.80 X10^6/uL (4.7-6.0) L 07/03/17 05:50 Hgb 12.2 g/dL (13.5-18.0) L 07/03/17 05:50 Hct 35.6 % (42.0-54.0) L 07/03/17 05:50 MCV 93.7 fL (80.0-100.0) 07/03/17 05:50 MCH 32.1 pg (27.0-34.0) 07/03/17 05:50 MCHC 34.3 g/dL (33.0-35.0) 07/03/17 05:50 RDW 14.1 % (11.6-16.5) 07/03/17 05:50 Plt Count 237 X10^3/uL (150.0-450.0) 07/03/17 05:50 MPV 8.6 fL (7.4-11.0) 07/03/17 05:50 Neut % 72.1 % (42.0-75.0) 07/03/17 05:50 Lymph % 16.0 % (21.0-51.0) L 07/03/17 05:50 [place] % 8.6 % (0.0-13.0) 07/03/17 05:50 Eos % 2.1 % (0.9-2.9) 07/03/17 05:50 Baso % 1.2 % (0.2-1.0) H 07/03/17 05:50 Neut # 5.3 x10^3/uL (2.2-4.8) H 07/03/17 05:50 Lymph # 1.2 X10^3/uL (1.3-2.9) L 07/03/17 05:50 [place] # 0.6 x10^3/uL (0.3-0.8) 07/03/17 05:50 Eos # 0.2 x10^3/uL (0.0-0.2) 07/03/17 05:50 Baso # 0.1 X10^3/uL (0.0-0.1) 07/03/17 05:50 Absolute Nucleated RBC 0.0 /100WBC 07/03/17 05:50 ESR 26 MM/HOUR (0-15) H 07/01/17 18:20 INR Target Range - 07/03/17 05:50 INR 2.37 (0.8-1.3) H 07/03/17 05:50 Sodium 140 mmol/L (136-145) 07/03/17 05:50 Corrected Sodium TNP 07/03/17 05:50 Potassium 3.3 mmol/L (3.5-5.1) L 07/03/17 05:50 Chloride 104 mmol/L (98-107) 07/03/17 05:50 Carbon Dioxide 25.7 mmol/L (21-32) 07/03/17 05:50 BUN 19 mg/dL (7-18) H 07/03/17 05:50 Creatinine 1.39 mg/dL (0.70-1.30) H 07/03/17 05:50 Est GFR (MDRD) Af Amer > 60 (>60) 07/03/17 05:50 Est GFR (MDRD) Non-Af 57 (>60) L 07/03/17 05:50 Glucose 92 mg/dL (65-99) 07/03/17 05:50 Calcium 8.6 mg/dL (8.5-10.1) 07/03/17 05:50 Corrected Calcium 9.5 mg/dL (8.5-10.1) 07/03/17 05:50 Magnesium 1.8 mg/dL (1.7-2.9) 07/03/17 05:50 Total Bilirubin 0.60 mg/dL (0.2-1.0) 07/03/17 05:50 AST 11 Units/L (15-37) L 07/03/17 05:50 ALT 16 Units/L (12-78) 07/03/17 05:50 Alkaline Phosphatase 86 Units/L (46-116) 07/03/17 05:50 C-Reactive Protein 5.50 mg/L (0-3.0) H 07/01/17 18:20 Total Protein 6.6 g/dL (6.4-8.2) 07/03/17 05:50 Albumin 2.9 g/dL (3.4-5.0) L 07/03/17 05:50 Globulin 3.7 g/dL (2.5-4.5) 07/03/17 05:50 Albumin/Globulin Ratio 0.8 Ratio (1.1-2.1) L 07/03/17 05:50 Vancomycin Trough 13.0 ug/mL (15-20) L 07/03/17 05:50 Tissue Pathology To follow 07/02/17 10:40 - Plan (1) Infected wound Status: Acute (2) Cellulitis of right leg Status: Acute Plan: S/P debridement. BC, WOUND CULTURE. IV ATBX, local care.
[2017-07-03] MEDS: PHARMACY COMMENT IV SCH (11:48)
[2017-07-03] MEDS: MORPHINE SULFATE INJ 2 MG INJ IVP PRN ×2 (13:27→21:18)
[2017-07-03] MEDS: NS 250 ML IV 250 ML IV SCH (17:12)
[2017-07-03] MEDS: MAG-OX TAB PO PRN (17:55)
[2017-07-03] MEDS: POTASSIUM CHL 40 MEQ/NS 0.45% 500 ML IV PRN (17:55)
[2017-07-03] MEDS ORDERED: HYDROGEN PEROXIDE 3% EXT ONE (18:48)
[2017-07-03] MEDS: LIPITOR TAB 40 MG PO SCH (21:17)
[2017-07-04] MEDS: NS 250 ML IV 250 ML IV SCH ×3 (03:14→22:55)
[2017-07-04] MEDS: APRESOLINE TAB 25 MG PO SCH ×3 (05:18→22:41)
[2017-07-04] MEDS: MORPHINE SULFATE INJ 2 MG INJ IVP PRN (05:20)
[2017-07-04 06:07] LABS: BASOPHILS % (AUTO) 0.2 % (0.2-1.0); EOSINOPHILS # (AUTO) 0.2 x10^3/uL (0.0-0.2); EOSINOPHILS % (AUTO) 4.1 % (0.9-2.9); HEMOGLOBIN 11.9 g/dL (13.5-18.0); LYMPHOCYTES # (AUTO) 1.1 X10^3/uL (1.3-2.9); LYMPHOCYTES % (AUTO) 18.9 % (21.0-51.0); MEAN CORPUSCULAR HEMOGLOBIN 31.8 pg (27.0-34.0); MEAN CORPUSCULAR VOLUME 93.4 fL (80.0-100.0); MEAN PLATELET VOLUME 8.5 fL (7.4-11.0); MONOCYTES # (AUTO) 0.5 x10^3/uL (0.3-0.8); MONOCYTES % (AUTO) 8.3 % (0.0-13.0); NEUTROPHILS % (AUTO) 68.5 % (42.0-75.0); PLATELET COUNT 259 X10^3/uL (150.0-450.0); RED BLOOD COUNT 3.75 X10^6/uL (4.7-6.0); RED CELL DISTRIBUTION WIDTH 13.9 % (11.6-16.5); WHITE BLOOD COUNT 5.9 X10^3/uL (3.6-10.0)
[2017-07-04 06:26] LABS: ALANINE AMINOTRANSFERASE 14 Units/L (12-78); ALBUMIN 2.8 g/dL (3.4-5.0); ALKALINE PHOSPHATASE 80 Units/L (46-116); ASPARTATE AMINO TRANSFERASE 12 Units/L (15-37); BLOOD UREA NITROGEN 18 mg/dL (7-18); CALCIUM 8.5 mg/dL (8.5-10.1); CARBON DIOXIDE 25.7 mmol/L (21-32); CHLORIDE 104 mmol/L (98-107); COR CA(FOR HYPOALB) 9.5 mg/dL (8.5-10.1); CREATININE 1.32 mg/dL (0.70-1.30); SODIUM 138 mmol/L (136-145); TOTAL PROTEIN 6.3 g/dL (6.4-8.2); eGFR BLACK RACES > 60 (>60); eGFR NON BLACK RACES 58 (>60)
[2017-07-04] MEDS: VANCOMYCIN HCL 500 MG VIAL 750 MG in D5W 250 ML IV 250 ML IV SCH ×2 (07:52→22:53)
[2017-07-04] MEDS ORDERED: ZESTRIL TAB 20 MG ONE (08:02)
[2017-07-04] MEDS: FLOMAX PO SCH (08:27)
[2017-07-04] MEDS: ZESTRIL TAB 20 MG PO SCH (08:27)
[2017-07-04] MEDS: VANCOMYCIN HCL 1 GM VIAL 1 GM in D5W 250 ML IV 250 ML IV SCH (08:28)
[2017-07-04] MEDS: LOPRESSOR TAB 25 MG PO SCH ×2 (08:28→22:53)
[2017-07-04] MEDS: PROCARDIA XL PO SCH (08:29)
[2017-07-04] MEDS: PHARMACY COMMENT IV SCH ×2 (08:30→20:29)
--- NOTE | 2017-07-04 08:41 | PCM.PROG ---
Progress Note - Subjective Subjective: less pain Rt leg wound . minimal drainage and swelling . no fever . culture showed MRSA sensitive to Clindamycin - Past Medical Family Social History Allergies: Allergies No Known Drug Allergies Allergy (Verified 04/16/17 17:50) - Vital Signs and I&O's Vital Signs: Temperature 98.0 F Pulse Rate [Radial] 93 Pulse Rate [Apical] 75 Pulse Rate 97 Respiratory Rate 14 Blood Pressure [Left Arm] 125/68 Blood Pressure [Right Arm] 175/105 Blood Pressure 162/104 O2 Sat by Pulse Oximetry 97 Intake and Output: Intake & Output 07/01/17 07/02/17 07/03/17 07/04/17 11:59 11:59 11:59 11:59 Intake Total 201 536 6930 Output Total 1595 1650 1900 Balance -9296 -204 -356 - Physical Exam Oriented: Normal Eyes: Normal Ear: Normal Nose: Normal Throat: Normal Cardiovascular: Normal : Normal Auscultation: Bowel Sounds: Normal Tenderness: Normal Skin: Wound (dressing was changed and packing was removed .. less erythema .. the wound is deep about 4 cm . no necrosis . still moderate associated celuuliris ) Musculoskeletal: Right, Leg Psychiatric: Depression Speech Pattern: Clear, Appropriate - Laboratory and Diagnostics Result Diagrams: 07/04/17 05:45 07/04/17 05:45 Labs: 07/01/17 18:24 Leg - Right Gram Stain - Final 07/01/17 18:24 Leg - Right Wound Culture - Final Methicillin Resis Staph Aureus 07/01/17 18:28 Blood Blood Culture - Preliminary 07/01/17 18:20 Blood Blood Culture - Preliminary 07/02/17 10:40 Leg - Right Gram Stain - Final 07/02/17 10:40 Leg - Right Wound Culture - Preliminary Laboratory WBC 5.9 X10^3/uL (3.6-10.0) 07/04/17 05:45 RBC 3.75 X10^6/uL (4.7-6.0) L 07/04/17 05:45 Hgb 11.9 g/dL (13.5-18.0) L 07/04/17 05:45 Hct 35.0 % (42.0-54.0) L 07/04/17 05:45 MCV 93.4 fL (80.0-100.0) 07/04/17 05:45 MCH 31.8 pg (27.0-34.0) 07/04/17 05:45 MCHC 34.0 g/dL (33.0-35.0) 07/04/17 05:45 RDW 13.9 % (11.6-16.5) 07/04/17 05:45 Plt Count 259 X10^3/uL (150.0-450.0) 07/04/17 05:45 MPV 8.5 fL (7.4-11.0) 07/04/17 05:45 Neut % 68.5 % (42.0-75.0) 07/04/17 05:45 Lymph % 18.9 % (21.0-51.0) L 07/04/17 05:45 [place] % 8.3 % (0.0-13.0) 07/04/17 05:45 Eos % 4.1 % (0.9-2.9) H 07/04/17 05:45 Baso % 0.2 % (0.2-1.0) 07/04/17 05:45 Neut # 4.0 x10^3/uL (2.2-4.8) 07/04/17 05:45 Lymph # 1.1 X10^3/uL (1.3-2.9) L 07/04/17 05:45 [place] # 0.5 x10^3/uL (0.3-0.8) 07/04/17 05:45 Eos # 0.2 x10^3/uL (0.0-0.2) 07/04/17 05:45 Baso # 0.0 X10^3/uL (0.0-0.1) 07/04/17 05:45 Absolute Nucleated RBC 0.0 /100WBC 07/04/17 05:45 ESR 26 MM/HOUR (0-15) H 07/01/17 18:20 INR Target Range - 07/03/17 05:50 INR 2.37 (0.8-1.3) H 07/03/17 05:50 Sodium 138 mmol/L (136-145) 07/04/17 05:45 Corrected Sodium TNP 07/04/17 05:45 Potassium 3.4 mmol/L (3.5-5.1) L 07/04/17 05:45 Chloride 104 mmol/L (98-107) 07/04/17 05:45 Carbon Dioxide 25.7 mmol/L (21-32) 07/04/17 05:45 BUN 18 mg/dL (7-18) 07/04/17 05:45 Creatinine 1.32 mg/dL (0.70-1.30) H 07/04/17 05:45 Est GFR (MDRD) Af Amer > 60 (>60) 07/04/17 05:45 Est GFR (MDRD) Non-Af 58 (>60) L 07/04/17 05:45 Glucose 94 mg/dL (65-99) 07/04/17 05:45 Calcium 8.5 mg/dL (8.5-10.1) 07/04/17 05:45 Corrected Calcium 9.5 mg/dL (8.5-10.1) 07/04/17 05:45 Magnesium 1.8 mg/dL (1.7-2.9) 07/03/17 05:50 Total Bilirubin 0.50 mg/dL (0.2-1.0) 07/04/17 05:45 AST 12 Units/L (15-37) L 07/04/17 05:45 ALT 14 Units/L (12-78) 07/04/17 05:45 Alkaline Phosphatase 80 Units/L (46-116) 07/04/17 05:45 C-Reactive Protein 5.50 mg/L (0-3.0) H 07/01/17 18:20 Total Protein 6.3 g/dL (6.4-8.2) L 07/04/17 05:45 Albumin 2.8 g/dL (3.4-5.0) L 07/04/17 05:45 Globulin 3.5 g/dL (2.5-4.5) 07/04/17 05:45 Albumin/Globulin Ratio 0.8 Ratio (1.1-2.1) L 07/04/17 05:45 Vancomycin Trough 13.0 ug/mL (15-20) L 07/03/17 05:50 Tissue Pathology To follow 07/02/17 10:40 - Plan (1) Infected wound Status: Acute (2) Cellulitis of right leg Status: Acute Plan: S/P debridement. BC, WOUND CULTURE. IV ATBX, local care. pt could be discharged and have a visiting saloni change the packing daily . oral ATB Clindamycin and Bactrim. I could follow him in the office on friday .
[2017-07-04] MEDS ORDERED: XANAX PO PRN (09:44)
[2017-07-04] MEDS: PERCOCET TAB 5/325 MG PO PRN ×2 (12:02→19:01)
[2017-07-04 20:25] LABS: CREATININE 1.61 mg/dL (0.70-1.30)
[2017-07-04] MEDS: LIPITOR TAB 40 MG PO SCH (20:35)
[2017-07-04 20:43] LABS: VANCOMYCIN,TROUGH 22.7 ug/mL (15-20)
[2017-07-05] MEDS: NS 250 ML IV 250 ML IV SCH (04:59)
[2017-07-05] MEDS: APRESOLINE TAB 25 MG PO SCH ×3 (05:25→21:21)
[2017-07-05 06:15] LABS: BASOPHILS % (AUTO) 0.3 % (0.2-1.0); EOSINOPHILS # (AUTO) 0.2 x10^3/uL (0.0-0.2); EOSINOPHILS % (AUTO) 3.7 % (0.9-2.9); HEMATOCRIT 34.7 % (42.0-54.0); HEMOGLOBIN 11.8 g/dL (13.5-18.0); LYMPHOCYTES % (AUTO) 20.3 % (21.0-51.0); MEAN PLATELET VOLUME 8.7 fL (7.4-11.0); MONOCYTES # (AUTO) 0.4 x10^3/uL (0.3-0.8); MONOCYTES % (AUTO) 8.2 % (0.0-13.0); NEUTROPHILS # (AUTO) 3.2 x10^3/uL (2.2-4.8); NEUTROPHILS % (AUTO) 67.5 % (42.0-75.0); PLATELET COUNT 283 X10^3/uL (150.0-450.0); RED BLOOD COUNT 3.69 X10^6/uL (4.7-6.0); RED CELL DISTRIBUTION WIDTH 13.7 % (11.6-16.5); WHITE BLOOD COUNT 4.8 X10^3/uL (3.6-10.0)
[2017-07-05 06:22] LABS: ALANINE AMINOTRANSFERASE 15 Units/L (12-78); ALBUMIN 2.9 g/dL (3.4-5.0); ALKALINE PHOSPHATASE 83 Units/L (46-116); ASPARTATE AMINO TRANSFERASE 12 Units/L (15-37); BLOOD UREA NITROGEN 23 mg/dL (7-18); CALCIUM 8.9 mg/dL (8.5-10.1); CARBON DIOXIDE 25.3 mmol/L (21-32); CHLORIDE 104 mmol/L (98-107); COR CA(FOR HYPOALB) 9.8 mg/dL (8.5-10.1); CREATININE 1.45 mg/dL (0.70-1.30); SODIUM 138 mmol/L (136-145); TOTAL PROTEIN 6.5 g/dL (6.4-8.2); eGFR BLACK RACES > 60 (>60); eGFR NON BLACK RACES 52 (>60)
[2017-07-05] MEDS ORDERED: ZESTRIL TAB 20 MG ONE (09:23)
[2017-07-05] MEDS: PHARMACY COMMENT IV SCH ×2 (09:27→21:21)
[2017-07-05] MEDS: VANCOMYCIN HCL 500 MG VIAL 750 MG in D5W 250 ML IV 250 ML IV SCH ×2 (09:39→21:16)
[2017-07-05] MEDS: FLOMAX PO SCH (09:39)
[2017-07-05] MEDS: PROCARDIA XL PO SCH (09:39)
[2017-07-05] MEDS: ZESTRIL TAB 20 MG PO SCH (09:39)
[2017-07-05] MEDS: LOPRESSOR TAB 25 MG PO SCH ×2 (09:39→21:16)
--- NOTE | 2017-07-05 09:59 | PCM.PROG ---
Progress Note - Progress Note for Day of Date: 07/05/17 - Subjective Subjective: less pain Rt leg wound . mild drainage from Rt leg wound . no fever . culture showed MRSA sensitive to Clindamycin. vancomycin trough 22.7 - Past Medical Family Social History Allergies: Allergies No Known Drug Allergies Allergy (Verified 04/16/17 17:50) - Vital Signs and I&O's Vital Signs: Temperature 98.5 F Pulse Rate [Radial] 85 Pulse Rate [Apical] 75 Pulse Rate 97 Respiratory Rate 18 Blood Pressure [Left Arm] 135/83 Blood Pressure [Right Arm] 175/105 Blood Pressure 162/104 O2 Sat by Pulse Oximetry 97 Intake and Output: Intake & Output 07/02/17 07/03/17 07/04/17 07/05/17 11:59 11:59 11:59 11:59 Intake Total 594 841 6646 1805 Output Total 1595 1650 1900 1900 [facility] -1165 -690 -413 -95 - Physical Exam Oriented: Normal Eyes: Normal Ear: Normal Nose: Normal Throat: Normal Cardiovascular: Normal : Normal Auscultation: Bowel Sounds: Normal Tenderness: Normal Skin: Wound (dressing was changed and packing was removed .. less erythema .. the wound is deep about 4 cm with moderate amount of necrotic material . still moderate associated celuuliris ) Musculoskeletal: Right, Leg Psychiatric: Depression Speech Pattern: Clear, Appropriate - Laboratory and Diagnostics Result Diagrams: 07/05/17 05:26 07/05/17 05:26 Labs: 07/02/17 10:40 Leg - Right Gram Stain - Final 07/02/17 10:40 Leg - Right Wound Culture - Final Enterococcus Faecalis 07/01/17 18:24 Leg - Right Gram Stain - Final 07/01/17 18:24 Leg - Right Wound Culture - Final Methicillin Resis Staph Aureus 07/01/17 18:28 Blood Blood Culture - Preliminary 07/01/17 18:20 Blood Blood Culture - Preliminary Laboratory WBC 4.8 X10^3/uL (3.6-10.0) 07/05/17 05:26 RBC 3.69 X10^6/uL (4.7-6.0) L 07/05/17 05:26 Hgb 11.8 g/dL (13.5-18.0) L 07/05/17 05:26 Hct 34.7 % (42.0-54.0) L 07/05/17 05:26 MCV 94.0 fL (80.0-100.0) 07/05/17 05:26 MCH 32.0 pg (27.0-34.0) 07/05/17 05:26 MCHC 34.0 g/dL (33.0-35.0) 07/05/17 05:26 RDW 13.7 % (11.6-16.5) 07/05/17 05:26 Plt Count 283 X10^3/uL (150.0-450.0) 07/05/17 05:26 MPV 8.7 fL (7.4-11.0) 07/05/17 05:26 Neut % 67.5 % (42.0-75.0) 07/05/17 05:26 Lymph % 20.3 % (21.0-51.0) L 07/05/17 05:26 [place] % 8.2 % (0.0-13.0) 07/05/17 05:26 Eos % 3.7 % (0.9-2.9) H 07/05/17 05:26 Baso % 0.3 % (0.2-1.0) 07/05/17 05:26 Neut # 3.2 x10^3/uL (2.2-4.8) 07/05/17 05:26 Lymph # 1.0 X10^3/uL (1.3-2.9) L 07/05/17 05:26 [place] # 0.4 x10^3/uL (0.3-0.8) 07/05/17 05:26 Eos # 0.2 x10^3/uL (0.0-0.2) 07/05/17 05:26 Baso # 0.0 X10^3/uL (0.0-0.1) 07/05/17 05:26 Absolute Nucleated RBC 0.0 /100WBC 07/05/17 05:26 ESR 26 MM/HOUR (0-15) H 07/01/17 18:20 INR Target Range - 07/03/17 05:50 INR 2.37 (0.8-1.3) H 07/03/17 05:50 Sodium 138 mmol/L (136-145) 07/05/17 05:26 Corrected Sodium TNP 07/05/17 05:26 Potassium 3.4 mmol/L (3.5-5.1) L 07/05/17 05:26 Chloride 104 mmol/L (98-107) 07/05/17 05:26 Carbon Dioxide 25.3 mmol/L (21-32) 07/05/17 05:26 BUN 23 mg/dL (7-18) H 07/05/17 05:26 Creatinine 1.45 mg/dL (0.70-1.30) H 07/05/17 05:26 Est GFR (MDRD) Af Amer > 60 (>60) 07/05/17 05:26 Est GFR (MDRD) Non-Af 52 (>60) L 07/05/17 05:26 Glucose 95 mg/dL (65-99) 07/05/17 05:26 Calcium 8.9 mg/dL (8.5-10.1) 07/05/17 05:26 Corrected Calcium 9.8 mg/dL (8.5-10.1) 07/05/17 05:26 Magnesium 1.8 mg/dL (1.7-2.9) 07/03/17 05:50 Total Bilirubin 0.40 mg/dL (0.2-1.0) 07/05/17 05:26 AST 12 Units/L (15-37) L 07/05/17 05:26 ALT 15 Units/L (12-78) 07/05/17 05:26 Alkaline Phosphatase 83 Units/L (46-116) 07/05/17 05:26 C-Reactive Protein 5.50 mg/L (0-3.0) H 07/01/17 18:20 Total Protein 6.5 g/dL (6.4-8.2) 07/05/17 05:26 Albumin 2.9 g/dL (3.4-5.0) L 07/05/17 05:26 Globulin 3.6 g/dL (2.5-4.5) 07/05/17 05:26 Albumin/Globulin Ratio 0.8 Ratio (1.1-2.1) L 07/05/17 05:26 Vancomycin Trough 22.7 ug/mL (15-20) H* 07/04/17 20:03 Tissue Pathology To follow 07/02/17 10:40 - Plan (1) Infected wound Status: Acute Plan: same local care and ATB for MRSA infection with monitering blood level (2) Cellulitis of right leg Status: Acute Plan: S/P debridement. BC, WOUND CULTURE. IV ATBX, local care. to hold vancomycin and repeat random
[2017-07-05] MEDS ORDERED: MILK OF MAGNESIA PO PRN (11:23)
[2017-07-05] MEDS: COLACE CAP 100 MG PO SCH ×2 (14:31→21:16)
[2017-07-05] MEDS: PERCOCET TAB 5/325 MG PO PRN (18:04)
[2017-07-05] MEDS: K-LYTE EFFERVESCENT PO PRN (21:16)
[2017-07-05] MEDS: LIPITOR TAB 40 MG PO SCH (21:16)
[2017-07-06] MEDS: APRESOLINE TAB 25 MG PO SCH ×3 (05:17→21:41)
[2017-07-06 05:33] LABS: BASOPHILS # (AUTO) 0.1 X10^3/uL (0.0-0.1); BASOPHILS % (AUTO) 1.4 % (0.2-1.0); EOSINOPHILS # (AUTO) 0.2 x10^3/uL (0.0-0.2); EOSINOPHILS % (AUTO) 3.9 % (0.9-2.9); HEMOGLOBIN 12.1 g/dL (13.5-18.0); LYMPHOCYTES # (AUTO) 1.3 X10^3/uL (1.3-2.9); LYMPHOCYTES % (AUTO) 23.8 % (21.0-51.0); MEAN CORPUSCULAR HEMOGLOBIN 32.2 pg (27.0-34.0); MEAN CORPUSCULAR HGB CONC 34.7 g/dL (33.0-35.0); MEAN CORPUSCULAR VOLUME 92.9 fL (80.0-100.0); MONOCYTES # (AUTO) 0.5 x10^3/uL (0.3-0.8); MONOCYTES % (AUTO) 9.3 % (0.0-13.0); NEUTROPHILS # (AUTO) 3.3 x10^3/uL (2.2-4.8); NEUTROPHILS % (AUTO) 61.6 % (42.0-75.0); PLATELET COUNT 303 X10^3/uL (150.0-450.0); RED BLOOD COUNT 3.76 X10^6/uL (4.7-6.0); WHITE BLOOD COUNT 5.4 X10^3/uL (3.6-10.0)
[2017-07-06 05:51] LABS: ALANINE AMINOTRANSFERASE 14 Units/L (12-78); ALBUMIN 2.9 g/dL (3.4-5.0); ALKALINE PHOSPHATASE 84 Units/L (46-116); ASPARTATE AMINO TRANSFERASE 12 Units/L (15-37); BLOOD UREA NITROGEN 19 mg/dL (7-18); CARBON DIOXIDE 26.1 mmol/L (21-32); CHLORIDE 105 mmol/L (98-107); COR CA(FOR HYPOALB) 9.9 mg/dL (8.5-10.1); CREATININE 1.42 mg/dL (0.70-1.30); SODIUM 140 mmol/L (136-145); TOTAL PROTEIN 6.7 g/dL (6.4-8.2); eGFR BLACK RACES > 60 (>60); eGFR NON BLACK RACES 53 (>60)
[2017-07-06] MEDS: NS 250 ML IV 250 ML IV SCH ×4 (06:46→21:38)
[2017-07-06] MEDS: POTASSIUM CHL 40 MEQ/NS 0.45% 500 ML IV PRN (06:55)
[2017-07-06] MEDS ORDERED: ZESTRIL TAB 20 MG ONE (08:33)
[2017-07-06] MEDS: FLOMAX PO SCH (08:36)
[2017-07-06] MEDS: ZESTRIL TAB 20 MG PO SCH (08:36)
[2017-07-06] MEDS: MAG-OX TAB PO PRN (08:36)
[2017-07-06] MEDS: LOPRESSOR TAB 25 MG PO SCH ×2 (08:36→21:36)
[2017-07-06] MEDS: PHARMACY COMMENT IV SCH ×2 (08:38→21:41)
[2017-07-06] MEDS: PROCARDIA XL PO SCH (08:40)
[2017-07-06] MEDS ORDERED: PHARMACY COMMENT IV SCH (08:45)
[2017-07-06 09:45] LABS: CREATININE 1.43 mg/dL (0.70-1.30)
--- NOTE | 2017-07-06 10:00 | PCM.PROG ---
Progress Note - Progress Note for Day of Date: 07/06/17 - Subjective Subjective: less pain Rt leg wound . mild drainage from Rt leg wound . no fever . culture showed MRSA sensitive to Clindamycin. vancomycin trough level is pending today. - Past Medical Family Social History Allergies: Allergies No Known Drug Allergies Allergy (Verified 04/16/17 17:50) - Vital Signs and I&O's Vital Signs: Temperature 99.3 F Pulse Rate [Right Brachial] 93 Pulse Rate [Radial] 85 Pulse Rate [Apical] 75 Pulse Rate 97 Respiratory Rate 18 Blood Pressure [Left Arm] 135/82 Blood Pressure [Right Arm] 166/89 Blood Pressure 162/104 O2 Sat by Pulse Oximetry 97 Intake and Output: Intake & Output 07/03/17 07/04/17 07/05/17 07/06/17 11:59 11:59 11:59 11:59 Intake Total 960 1487 1805 1370 Output Total 1650 1900 1900 1550 Balance -690 -413 -95 -180 - Physical Exam Oriented: Normal Eyes: Normal Ear: Normal Nose: Normal Throat: Normal Cardiovascular: Normal : Normal Auscultation: Bowel Sounds: Normal Tenderness: Normal Skin: Wound (dressing was changed and packing was removed .. less erythema .. the wound is deep about 4 cm with moderate amount of necrotic material . still moderate associated celuuliris ) Musculoskeletal: Right, Leg Psychiatric: Depression Speech Pattern: Clear, Appropriate - Laboratory and Diagnostics Result Diagrams: 07/06/17 05:21 07/06/17 08:56 Labs: 07/02/17 10:40 Leg - Right Gram Stain - Final 07/02/17 10:40 Leg - Right Wound Culture - Final Enterococcus Faecalis 07/01/17 18:24 Leg - Right Gram Stain - Final 07/01/17 18:24 Leg - Right Wound Culture - Final Methicillin Resis Staph Aureus 07/01/17 18:28 Blood Blood Culture - Preliminary 07/01/17 18:20 Blood Blood Culture - Preliminary Laboratory WBC 5.4 X10^3/uL (3.6-10.0) 07/06/17 05:21 RBC 3.76 X10^6/uL (4.7-6.0) L 07/06/17 05:21 Hgb 12.1 g/dL (13.5-18.0) L 07/06/17 05:21 Hct 35.0 % (42.0-54.0) L 07/06/17 05:21 MCV 92.9 fL (80.0-100.0) 07/06/17 05:21 MCH 32.2 pg (27.0-34.0) 07/06/17 05:21 MCHC 34.7 g/dL (33.0-35.0) 07/06/17 05:21 RDW 14.0 % (11.6-16.5) 07/06/17 05:21 Plt Count 303 X10^3/uL (150.0-450.0) 07/06/17 05:21 MPV 8.0 fL (7.4-11.0) 07/06/17 05:21 Neut % 61.6 % (42.0-75.0) 07/06/17 05:21 Lymph % 23.8 % (21.0-51.0) 07/06/17 05:21 [place] % 9.3 % (0.0-13.0) 07/06/17 05:21 Eos % 3.9 % (0.9-2.9) H 07/06/17 05:21 Baso % 1.4 % (0.2-1.0) H 07/06/17 05:21 Neut # 3.3 x10^3/uL (2.2-4.8) 07/06/17 05:21 Lymph # 1.3 X10^3/uL (1.3-2.9) 07/06/17 05:21 [place] # 0.5 x10^3/uL (0.3-0.8) 07/06/17 05:21 Eos # 0.2 x10^3/uL (0.0-0.2) 07/06/17 05:21 Baso # 0.1 X10^3/uL (0.0-0.1) 07/06/17 05:21 Absolute Nucleated RBC 0.0 /100WBC 07/06/17 05:21 ESR 26 MM/HOUR (0-15) H 07/01/17 18:20 INR Target Range - 07/03/17 05:50 INR 2.37 (0.8-1.3) H 07/03/17 05:50 Sodium 140 mmol/L (136-145) 07/06/17 05:21 Corrected Sodium TNP 07/06/17 05:21 Potassium 3.1 mmol/L (3.5-5.1) L 07/06/17 05:21 Chloride 105 mmol/L (98-107) 07/06/17 05:21 Carbon Dioxide 26.1 mmol/L (21-32) 07/06/17 05:21 BUN 19 mg/dL (7-18) H 07/06/17 05:21 Creatinine 1.43 mg/dL (0.70-1.30) H 07/06/17 08:56 Est GFR (MDRD) Af Amer > 60 (>60) 07/06/17 05:21 Est GFR (MDRD) Non-Af 53 (>60) L 07/06/17 05:21 Glucose 98 mg/dL (65-99) 07/06/17 05:21 Calcium 9.0 mg/dL (8.5-10.1) 07/06/17 05:21 Corrected Calcium 9.9 mg/dL (8.5-10.1) 07/06/17 05:21 Magnesium 1.9 mg/dL (1.7-2.9) 07/06/17 05:21 Total Bilirubin 0.40 mg/dL (0.2-1.0) 07/06/17 05:21 AST 12 Units/L (15-37) L 07/06/17 05:21 ALT 14 Units/L (12-78) 07/06/17 05:21 Alkaline Phosphatase 84 Units/L (46-116) 07/06/17 05:21 C-Reactive Protein 5.50 mg/L (0-3.0) H 07/01/17 18:20 Total Protein 6.7 g/dL (6.4-8.2) 07/06/17 05:21 Albumin 2.9 g/dL (3.4-5.0) L 07/06/17 05:21 Globulin 3.8 g/dL (2.5-4.5) 07/06/17 05:21 Albumin/Globulin Ratio 0.8 Ratio (1.1-2.1) L 07/06/17 05:21 Vancomycin Trough 19.0 ug/mL (15-20) 07/06/17 08:56 Tissue Pathology To follow 07/02/17 10:40 - Plan (1) Infected wound Status: Acute Plan: same local care and ATB for MRSA infection with monitering blood level (2) Cellulitis of right leg Status: Acute Plan: S/P debridement. BC, WOUND CULTURE. IV ATBX, local care.
[2017-07-06] MEDS: VANCOMYCIN HCL 500 MG VIAL 750 MG in D5W 250 ML IV 250 ML IV SCH ×2 (10:40→21:38)
[2017-07-06] MEDS: K-LYTE EFFERVESCENT PO PRN (15:58)
[2017-07-06 19:59] LABS: CREATININE 1.82 mg/dL (0.70-1.30); VANCOMYCIN,TROUGH 14.7 ug/mL (15-20)
[2017-07-06] MEDS: LIPITOR TAB 40 MG PO SCH (21:35)
[2017-07-06] MEDS: COLACE CAP 100 MG PO SCH (21:35)
[2017-07-07] MEDS: APRESOLINE TAB 25 MG PO SCH (05:29)
[2017-07-07 05:30] LABS: BASOPHILS # (AUTO) 0.1 X10^3/uL (0.0-0.1); BASOPHILS % (AUTO) 1.3 % (0.2-1.0); EOSINOPHILS # (AUTO) 0.2 x10^3/uL (0.0-0.2); EOSINOPHILS % (AUTO) 3.1 % (0.9-2.9); HEMATOCRIT 34.8 % (42.0-54.0); HEMOGLOBIN 11.9 g/dL (13.5-18.0); LYMPHOCYTES # (AUTO) 1.1 X10^3/uL (1.3-2.9); LYMPHOCYTES % (AUTO) 18.2 % (21.0-51.0); MEAN CORPUSCULAR HEMOGLOBIN 31.8 pg (27.0-34.0); MEAN CORPUSCULAR VOLUME 93.3 fL (80.0-100.0); MEAN PLATELET VOLUME 8.5 fL (7.4-11.0); MONOCYTES # (AUTO) 0.5 x10^3/uL (0.3-0.8); MONOCYTES % (AUTO) 8.3 % (0.0-13.0); NEUTROPHILS # (AUTO) 4.3 x10^3/uL (2.2-4.8); NEUTROPHILS % (AUTO) 69.1 % (42.0-75.0); PLATELET COUNT 287 X10^3/uL (150.0-450.0); RED BLOOD COUNT 3.73 X10^6/uL (4.7-6.0); WHITE BLOOD COUNT 6.3 X10^3/uL (3.6-10.0)
[2017-07-07 05:51] LABS: ALANINE AMINOTRANSFERASE 13 Units/L (12-78); ALBUMIN 2.8 g/dL (3.4-5.0); ALKALINE PHOSPHATASE 81 Units/L (46-116); ASPARTATE AMINO TRANSFERASE 10 Units/L (15-37); BLOOD UREA NITROGEN 23 mg/dL (7-18); CALCIUM 8.7 mg/dL (8.5-10.1); CARBON DIOXIDE 23.8 mmol/L (21-32); CHLORIDE 106 mmol/L (98-107); COR CA(FOR HYPOALB) 9.7 mg/dL (8.5-10.1); CREATININE 1.68 mg/dL (0.70-1.30); SODIUM 139 mmol/L (136-145); TOTAL PROTEIN 6.1 g/dL (6.4-8.2); eGFR BLACK RACES 53 (>60); eGFR NON BLACK RACES 44 (>60)
[2017-07-07] MEDS: K-LYTE EFFERVESCENT PO PRN (06:53)
[2017-07-07] MEDS: NS 250 ML IV 250 ML IV SCH (07:48)
[2017-07-07] MEDS ORDERED: ZESTRIL TAB 20 MG ONE (07:51)
[2017-07-07] MEDS: PROCARDIA XL PO SCH (08:17)
[2017-07-07] MEDS: LOPRESSOR TAB 25 MG PO SCH (08:18)
[2017-07-07] MEDS: ZESTRIL TAB 20 MG PO SCH (08:18)
[2017-07-07] MEDS: FLOMAX PO SCH (08:18)
[2017-07-07] MEDS: MAG-OX TAB PO PRN (08:18)
[2017-07-07] MEDS: PHARMACY COMMENT IV SCH (08:19)
[2017-07-07] MEDS: VANCOMYCIN HCL 500 MG VIAL 750 MG in D5W 250 ML IV 250 ML IV SCH (09:27)
[2017-07-07 12:02] VITALS: BP 112/79
== END 2017-07-07 12:00 | disposition home health service (06) | DRG 572 ==
LOC: ICU 17:14
PROVIDERS: ADMIT Internal Medicine; ATTEND Internal Medicine
PROC: 0HDLXZZ Extraction of Left Lower Leg Skin, External Approach (ICD-10-PCS; 2017-07-02)
PROC: 0JBN0ZZ Excision of Right Lower Leg Subcutaneous Tissue and Fascia, Open Approach (ICD-10-PCS; principal; 2017-07-02 09:30)
DX: L03.115 Cellulitis of right lower limb (principal); S81.801A Unspecified open wound, right lower leg, initial encounter; S81.802A Unspecified open wound, left lower leg, initial encounter; W00.2XXA Other fall from one level to another due to ice and snow, initial encounter; Y92.89 Other specified places as the place of occurrence of the external cause; Z91.81 History of falling; B95.62 Methicillin resistant Staphylococcus aureus infection as the cause of diseases classified elsewhere; B95.2 Enterococcus as the cause of diseases classified elsewhere; I10 Essential (primary) hypertension; I25.10 Atherosclerotic heart disease of native coronary artery without angina pectoris; I48.91 Unspecified atrial fibrillation; Z79.01 Long term (current) use of anticoagulants; K21.9 Gastro-esophageal reflux disease without esophagitis; Z95.0 Presence of cardiac pacemaker; M19.90 Unspecified osteoarthritis, unspecified site; I73.89 Other specified peripheral vascular diseases
CPT/HCPCS: 36415; 71045; 73590; 80053; 80202; 82565; 83735; 84132; 85025; 85610; 85652; 86140; 87040; 87070; 87075; 87077; 87186; 87205; 88305; 93005; 93010; A4222; J2001; J2250; J2270; J3010; J3370; J3490

== ENCOUNTER 2017-11-11 12:45 | Observation (INO) ==
[2017-11-11] MEDS ORDERED: HYDROGEN PEROXIDE 3% ONE (13:02)
--- NOTE | 2017-11-11 13:08 | DR.EXTPAIN ---
HPI - Time seen Time seen: 13:00 - HPI Comment HPI Comment: PATIENT FELL YESTERDAY AND TODAY. MULTIPLE SKIN TEARS AND INJURY. AMS. - Complaint/Symptoms Chief Complaint Doctor Comments: FELL, MULTIPLE INJURY AND SKIN TEARS. - Nurses notes reviewed Nurses Notes Review: Yes - Source History Provided: Patient, Family Member - Mode of arrival Mode of Arrival: Stretcher - Context History of: Arthritis - Associated signs and symptoms Associated Signs and Symptoms: Abrasion, Weakness, Pain, Swelling, Bruising, Abdominal Pain, Headache, Nausea, Shortness of Breath, Syncope, Other (SKIN TEARS) PMH - PMH Past Medical History: Coronary Artery Disease, CVA, GERD, Hypertension, NC Past Surgical History: Yes Surgical History: Abdominal Surgery, Ortho Surgery, Tonsillectomy - Family History Family Medical History: Diabetes Mellitus, Cancer, Coronary Artery Disease, Hypertension - Social History Do you use any recreational Drugs:: No ROS - Review of Systems Constitutional: Weakness, Fatigue, Other ([place]). negative: Chills, Fever Eyes: negative: Eye Pain, Discharge ENTM: negative: Ear Pain, Nose Discharge, Nose Congestion, Throat Pain Respiratoy: Non-Productive Cough, Short of Breath, Wheezing. negative: Hemoptysis Cardiovascular: Chest Pain, Edema Gastrointestinal/Abdominal: Abdominal Pain, Nausea Genitourinary: negative: Dysuria, Frequency, Hematuria Neurological: Headache, Numbness, Weakness, Dizziness, Problems Walking Musculoskeletal: Back Pain, Joint Pain, Muscle Pain, Neck Pain, Chest wall, Rib( s) Integumentary: Bruises (ABRASIONA EXTREMITIES, MULTIPLE.) Hematologic/Lymphatic: Easy Bleeding, Easy Bruising Endocrine: No Symptoms Reported All Other Systems: Reviewed and Negative PE - General Limitations: No Limitations General Appearance: Alert - Head Head Exam: Other (HEAD TRAUMA.) - Eyes Eye exam: PERRL, EOMI. negative: Scleral Icterus, Conjunctival Injection - ENT ENT Exam: Normal External Ear Exam - Neck Neck Exam: Trachea Midline - Chest Chest Inspection: Symmetric Chest Wall Rise - Respiratory Respiratory Exam: Normal Lung Sounds Bilat Respiratory Exam: Bilateral Clear to Auscultation - Cardiovascular Cardiovascular Exam: Regular Rate, Normal Rhythm, Tachycardia - Abdominal Exam Abdominal Exam: Normal Bowel Sounds, Soft, Tenderness Abdominal Tenderness: Diffuse, Moderate - Extremities Extremities Exam: Tenderness (EXTREMITIES FROM SKIN TEARS) - Skin Type of Lesion: Abrasion Description: Tenderness, Erythematous - Vital Signs Vitals: Temperature 98.2 F Pulse Rate [Left] 88 Pulse Rate 86 Respiratory Rate 19 Blood Pressure [Left Arm] 130/91 Blood Pressure [Right Arm] 112/79 Blood Pressure 153/108 O2 Sat by Pulse Oximetry 96 MDM - Differential Diagnosis Differential Diagnosis: Abrasion, Contusion, Fracture, Neurovascular Injury, Sprain Course - Treatment Treatment: SEE ORDERS - Consultation Consultation Comments: DISCUSS PATIENT WITH DR. GARCIA. HE WILL ADMIT PATIENT. - Education/Counseling Education/Counseling: Patient, Family, Education Educated On: Treatment, Diagnosis, Needs for Follow Up ROR - Labs Reviewed Laboratory Results Reviewed?: Yes Result Diagrams: 11/12/17 05:25 11/12/17 05:25 - XRAY XRAY Interpreted by: Radiologist XRAY Findings: REPORT DISCUSS WITH PATIENT AND FAMILY. - EKG Rhythm: Afib (EKG NOTED.) - Labs Reviewed Laboratory: WBC 6.5 X10^3/uL (3.6-10.0) 11/11/17 13:15 RBC 4.66 X10^6/uL (4.7-6.0) L 11/11/17 13:15 Hgb 14.5 g/dL (13.5-18.0) 11/11/17 13:15 Hct 43.0 % (42.0-54.0) 11/11/17 13:15 MCV 92.2 fL (80.0-100.0) 11/11/17 13:15 MCH 31.1 pg (27.0-34.0) 11/11/17 13:15 MCHC 33.7 g/dL (33.0-35.0) 11/11/17 13:15 RDW 14.6 % (11.6-16.5) 11/11/17 13:15 Plt Count 250 X10^3/uL (150.0-450.0) 11/11/17 13:15 MPV 9.7 fL (7.4-11.0) 11/11/17 13:15 Neut % (Auto) 66.5 % (42.0-75.0) 11/11/17 13:15 Lymph % (Auto) 20.6 % (21.0-51.0) L 11/11/17 13:15 [place] % (Auto) 9.2 % (0.0-13.0) 11/11/17 13:15 Eos % (Auto) 2.6 % (0.9-2.9) 11/11/17 13:15 Baso % (Auto) 1.1 % (0.2-1.0) H 11/11/17 13:15 Neut # (Auto) 4.3 x10^3/uL (2.2-4.8) 11/11/17 13:15 Lymph # (Auto) 1.3 X10^3/uL (1.3-2.9) 11/11/17 13:15 Maries # (Auto) 0.6 x10^3/uL (0.3-0.8) 11/11/17 13:15 Eos # (Auto) 0.2 x10^3/uL (0.0-0.2) 11/11/17 13:15 Baso # (Auto) 0.1 X10^3/uL (0.0-0.1) 11/11/17 13:15 Absolute Nucleated RBC 0.1 /100WBC 11/11/17 13:15 INR Target Range - 11/11/17 13:15 INR 1.07 (0.8-1.3) 11/11/17 13:15 APTT 29.8 SECONDS (22.9-36.5) 11/11/17 13:15 PTT Comment - 11/11/17 13:15 Sodium 139 mmol/L (136-145) 11/11/17 13:15 Corrected Sodium TNP 11/11/17 13:15 Potassium 3.2 mmol/L (3.5-5.1) L 11/11/17 13:15 Chloride 104 mmol/L (98-107) 11/11/17 13:15 Carbon Dioxide 28.8 mmol/L (21-32) 11/11/17 13:15 BUN 34 mg/dL (7-18) H 11/11/17 13:15 Creatinine 2.27 mg/dL (0.70-1.30) H 11/11/17 13:15 Est GFR (MDRD) Af Amer 37 (>60) L 11/11/17 13:15 Est GFR (MDRD) Non-Af 31 (>60) L 11/11/17 13:15 Glucose 68 mg/dL (65-99) 11/11/17 13:15 Calcium 8.9 mg/dL (8.5-10.1) 11/11/17 13:15 Corrected Calcium TNP 11/11/17 13:15 Total Bilirubin 0.60 mg/dL (0.2-1.0) 11/11/17 13:15 AST 16 Units/L (15-37) 11/11/17 13:15 ALT 23 Units/L (12-78) 11/11/17 13:15 Alkaline Phosphatase 112 Units/L (46-116) 11/11/17 13:15 Creatine Kinase 70 Units/L (39-308) 11/11/17 13:15 CK-MB (CK-2) < 1.0 ng/mL (0-4.0) 11/11/17 13:15 CK/CKMB % Calc 1.4 % (<4) 11/11/17 13:15 Troponin I < 0.02 ng/mL (0-1.5) 11/11/17 13:15 Total Protein 7.2 g/dL (6.4-8.2) 11/11/17 13:15 Albumin 3.4 g/dL (3.4-5.0) 11/11/17 13:15 Globulin 3.8 g/dL (2.5-4.5) 11/11/17 13:15 Albumin/Globulin Ratio 0.9 Ratio (1.1-2.1) L 11/11/17 13:15 - Diagnosis Discharge Problem: Hypokalemia, Mild dehydration, Falls frequently - Discharge Plan Disposition: ADMITTED INPATIENT Condition: Stable
[2017-11-11 13:18] VITALS: BMI 33.9
[2017-11-11 13:41] LABS: BASOPHILS # (AUTO) 0.1 X10^3/uL (0.0-0.1); BASOPHILS % (AUTO) 1.1 % (0.2-1.0); EOSINOPHILS # (AUTO) 0.2 x10^3/uL (0.0-0.2); EOSINOPHILS % (AUTO) 2.6 % (0.9-2.9); HEMOGLOBIN 14.5 g/dL (13.5-18.0); LYMPHOCYTES # (AUTO) 1.3 X10^3/uL (1.3-2.9); LYMPHOCYTES % (AUTO) 20.6 % (21.0-51.0); MEAN CORPUSCULAR HEMOGLOBIN 31.1 pg (27.0-34.0); MEAN CORPUSCULAR HGB CONC 33.7 g/dL (33.0-35.0); MEAN CORPUSCULAR VOLUME 92.2 fL (80.0-100.0); MEAN PLATELET VOLUME 9.7 fL (7.4-11.0); MONOCYTES # (AUTO) 0.6 x10^3/uL (0.3-0.8); MONOCYTES % (AUTO) 9.2 % (0.0-13.0); NEUTROPHILS # (AUTO) 4.3 x10^3/uL (2.2-4.8); NEUTROPHILS % (AUTO) 66.5 % (42.0-75.0); PLATELET COUNT 250 X10^3/uL (150.0-450.0); RED BLOOD COUNT 4.66 X10^6/uL (4.7-6.0); RED CELL DISTRIBUTION WIDTH 14.6 % (11.6-16.5); WHITE BLOOD COUNT 6.5 X10^3/uL (3.6-10.0)
[2017-11-11 13:45] LABS: ALANINE AMINOTRANSFERASE 23 Units/L (12-78); ALBUMIN 3.4 g/dL (3.4-5.0); ALKALINE PHOSPHATASE 112 Units/L (46-116); ASPARTATE AMINO TRANSFERASE 16 Units/L (15-37); BLOOD UREA NITROGEN 34 mg/dL (7-18); CALCIUM 8.9 mg/dL (8.5-10.1); CARBON DIOXIDE 28.8 mmol/L (21-32); CHLORIDE 104 mmol/L (98-107); CREATININE 2.27 mg/dL (0.70-1.30); SODIUM 139 mmol/L (136-145); TOTAL PROTEIN 7.2 g/dL (6.4-8.2); eGFR NON BLACK RACES 31 (>60)
--- NOTE | 2017-11-11 13:57 | CT ---
History: Multiple falls Study: CT head without contrast. Sagittal and coronal reformations were provided. Comparison: May 02, 2013 Findings: The ventricles and sulci are mildly enlarged without mass effect. There is no intracranial hemorrhage or mass or edema. There is an old lacunar infarct in the anterior limb of the right direct marketing intern al capsule. There is a tiny lacunar infarct in the mid left internal capsule and in the right externa l capsule. There is no subdural collection of fluid. There are prominent subarachnoid spaces. The hector varium is intact. There are old lacunar infarcts in the centrum semiovale. There is severe multifocal periventricular white matter patchy low attenuation. Impression: 1. No acute intracranial disease 2. Moderate to severe periventricular white-matter small-vessel disease and multiple basal ganglial l acunar infarcts. Reported By:
--- NOTE | 2017-11-11 14:01 | CT ---
History: Multiple falls Study: CT cervical spine without contrast. Sagittal and coronal reformations were provided. Comparison: None Findings: There is normal alignment with severe C4-5 and C5-6 and C6-7 disc space narrowing and moder ate C3-4 disc space narrowing. There are anterior osteophytes. There is posterior bony ridging at C5- 6 and C6-7 with uncovertebral joint spurring on the left at C6-7. There are mild osteophytes about th e facet joints on the right and moderate left facet joint osteophyte formation, most pronounced on th e left at C3-4. There is fusion of the left C2-3 facet joint. Impression: Degenerative disc disease most severe in the lower cervical spine and facet joint osteoar thritis and uncovertebral joint spurring as described. Reported By:
--- NOTE | 2017-11-11 14:03 | CT ---
HISTORY: Multiple falls, multiple abrasions. Study: CT abdomen and pelvis without IV or contrast Comparison: 05/04/2014. Technique: Multiple axial images of the abdomen and pelvis were obtained from the lung bases to the pubic symphy sis without the administration of IV or oral contrast. Coronal and sagittal images are also reviewed . Dose reduction techniques utilized automatic exposure control. Findings: There is a 1 cm posterior pericardial effusion. No pleural effusion is seen no consolidation is pres ent lung bases . There is cardiomegaly. The liver, spleen, pancreas, kidneys, and left adrenal gland are unremarkable in their CT appearance. The gallbladder is unremarkable in its CT appearance. The quintero b cm right adrenal adenoma is present. No significant mesenteric lymphadenopathy or stranding can be observed. No free fluid or free air is seen within the abdomen. No bowel wall thickening or bowel d ilatation is present. There is evidence of prior surgery with removal of a portion of the sigmoid co courtney. A few small uncomplicated appearing diverticula present involving the descending colon. No evide nce of diverticulitis is seen. A 5 cm rectal fecal impaction is present. There are central prostatic calcifications.. The urinary bladder is grossly unremarkable. There is multilevel degenerative disc disease involving the lumbar spine. 7 mm forward subluxation of L5 upon S1 is appreciated. IMPRESSION: 1 cm posterior pericardial effusion. Sub cm right adrenal adenoma. Evidence of prior surgical resection of a portion of the sigmoid colon. A few small uncomplicated sintia earing diverticula are present involving the descending colon. No evidence of diverticulitis is seen. 5 cm rectal fecal impaction. No evidence of adenopathy or fluid. Multilevel degenerative changes present involving the lower lumbar spine. Reported By:
--- NOTE | 2017-11-11 14:04 | CT ---
History: Multiple falls with multiple abrasions Study: CT of the thorax without IV contrast. Sagittal and coronal reformations were performed as well as axial soft tissue MIPS. Comparison: None Findings: The lungs are grossly clear. There is no pneumothorax or pleural effusion. There is a focal calcification in the proximal left main coronary artery. There is no significant pericardial effusio n. The visualized upper abdomen is unremarkable. The ribs are intact. The sternum is unremarkable. Th ere are degenerative osteophytes in the lower thoracic spine. No compression fracture is demonstrated . Impression: No acute disease demonstrated in the chest Reported By:
[2017-11-11] MEDS ORDERED: NS + KCL 40 MEQ/L 1,000 ML IV SCH (15:00)
[2017-11-11 15:14] LABS: CKMB % 1.4 % (<4); CREATINE KINASE 70 Units/L (39-308); CREATINE KINASE MB < 1.0 ng/mL (0-4.0); TROPONIN I < 0.02 ng/mL (0-1.5)
[2017-11-11] MEDS ORDERED: TORADOL 30 MG VIAL IVP ONE (15:41)
[2017-11-11] MEDS ORDERED: TORADOL 30 MG VIAL ONE (15:42)
[2017-11-11 16:29] LABS: BILIRUBIN,URINE NEGATIVE (NEGATIVE); BLOOD/HEMOGLOBIN,URINE 1+ (NEGATIVE); GLUCOSE, URINE NEGATIVE (NEGATIVE); KETONES,URINE NEGATIVE (NEGATIVE); LEUKOCYTE ESTERASE ,URINE 1+ (NEGATIVE); NITRITES,URINE NEGATIVE (NEGATIVE); PROTEIN,URINE 3+ (NEGATIVE); UROBILINOGEN,URINE 1+ (NORMAL)
[2017-11-11 16:30] LABS: CKMB % 1.4 % (<4); CREATINE KINASE 74 Units/L (39-308); CREATINE KINASE MB < 1.0 ng/mL (0-4.0); TROPONIN I < 0.02 ng/mL (0-1.5)
[2017-11-11 16:39] LABS: AMORPHOUS SEDIMENT,UR 1+ /HPF (NEGATIVE); APPEARANCE,URINE SLIGHTLY HAZY (CLEAR); BACTERIA,URINE TRACE /HPF (NEGATIVE); COLOR,URINE DARK YELLOW (YELLOW); HYALINE CASTS, URINE FEW /LPF (NEGATIVE); SQUAMOUS EPITHELIAL CELL,UR FEW /HPF (NEGATIVE)
[2017-11-11] MEDS: NORCO 5/325 MG TAB PO PRN (19:03)
[2017-11-11] MEDS: COUMADIN TAB 5 MG PO SCH (20:38)
[2017-11-11] MEDS: AMBIEN PO SCH (20:55)
[2017-11-11] MEDS: LIPITOR TAB 40 MG PO SCH (20:55)
[2017-11-11] MEDS: CATAPRES TAB 0.1 MG PO PRN (20:56)
[2017-11-11] MEDS: DILAUDID INJ IVP PRN (21:20)
[2017-11-11 22:48] LABS: CREATINE KINASE 98 Units/L (39-308); TROPONIN I < 0.02 ng/mL (0-1.5)
[2017-11-12] MEDS: NS + KCL 40 MEQ/L 1,000 ML IV SCH ×2 (00:42→12:01)
[2017-11-12] MEDS: DILAUDID INJ IVP PRN (04:45)
[2017-11-12 06:03] LABS: BASOPHILS # (AUTO) 0.1 X10^3/uL (0.0-0.1); BASOPHILS % (AUTO) 1.2 % (0.2-1.0); EOSINOPHILS # (AUTO) 0.1 x10^3/uL (0.0-0.2); EOSINOPHILS % (AUTO) 2.1 % (0.9-2.9); HEMATOCRIT 39.8 % (42.0-54.0); HEMOGLOBIN 13.5 g/dL (13.5-18.0); LYMPHOCYTES # (AUTO) 1.5 X10^3/uL (1.3-2.9); LYMPHOCYTES % (AUTO) 21.9 % (21.0-51.0); MEAN CORPUSCULAR HEMOGLOBIN 31.3 pg (27.0-34.0); MEAN CORPUSCULAR HGB CONC 33.8 g/dL (33.0-35.0); MEAN CORPUSCULAR VOLUME 92.6 fL (80.0-100.0); MEAN PLATELET VOLUME 9.7 fL (7.4-11.0); MONOCYTES # (AUTO) 0.5 x10^3/uL (0.3-0.8); MONOCYTES % (AUTO) 7.2 % (0.0-13.0); NEUTROPHILS # (AUTO) 4.5 x10^3/uL (2.2-4.8); NEUTROPHILS % (AUTO) 67.6 % (42.0-75.0); PLATELET COUNT 183 X10^3/uL (150.0-450.0); RED CELL DISTRIBUTION WIDTH 14.4 % (11.6-16.5); WHITE BLOOD COUNT 6.7 X10^3/uL (3.6-10.0)
[2017-11-12 06:28] LABS: ALANINE AMINOTRANSFERASE 20 Units/L (12-78); ALBUMIN 2.8 g/dL (3.4-5.0); ALKALINE PHOSPHATASE 102 Units/L (46-116); ASPARTATE AMINO TRANSFERASE 12 Units/L (15-37); BLOOD UREA NITROGEN 32 mg/dL (7-18); CALCIUM 8.3 mg/dL (8.5-10.1); CARBON DIOXIDE 25.9 mmol/L (21-32); CHLORIDE 106 mmol/L (98-107); CHOL/HDL RATIO 3.8 (0.0-5.0); CHOLESTEROL 150 mg/dL (0-200); CKMB % 1.5 % (<4); COR CA(FOR HYPOALB) 9.3 mg/dL (8.5-10.1); CREATINE KINASE 67 Units/L (39-308); CREATINE KINASE MB < 1.0 ng/mL (0-4.0); CREATININE 2.08 mg/dL (0.70-1.30); HDL CHOLESTEROL 39 mg/dL (40-60); MAGNESIUM 1.9 mg/dL (1.7-2.9); SODIUM 139 mmol/L (136-145); TOTAL PROTEIN 6.3 g/dL (6.4-8.2); TRIGLYCERIDES 65 mg/dL (0-150); TROPONIN I < 0.02 ng/mL (0-1.5); eGFR NON BLACK RACES 34 (>60)
[2017-11-12] MEDS: NORCO 5/325 MG TAB PO PRN (07:36)
[2017-11-12] MEDS ORDERED: NS + KCL 40 MEQ/L 1,000 ML IV SCH (08:00)
[2017-11-12] MEDS ORDERED: LEXAPRO ONE (08:57)
[2017-11-12] MEDS ORDERED: TOPROL XL PO ONE (08:57)
[2017-11-12] MEDS: FLOMAX PO SCH (09:10)
[2017-11-12] MEDS: HYDROCHLOROTHIAZIDE 25 MG TAB PO SCH (09:10)
[2017-11-12] MEDS: ZESTRIL TAB 40 MG PO SCH (09:10)
[2017-11-12] MEDS: LEXAPRO PO SCH (09:11)
[2017-11-12] MEDS: CARDIZEM CD 240 MG PO SCH (09:11)
[2017-11-12] MEDS: PROTONIX TAB 40 MG PO SCH (09:12)
[2017-11-12] MEDS: TOPROL XL PO SCH (09:13)
[2017-11-12] MEDS: REQUIP PO SCH (09:17)
[2017-11-12] MEDS: MOBIC TAB 15 MG PO SCH (09:17)
[2017-11-12] MEDS: CORDARONE TAB 200 MG PO SCH (09:18)
[2017-11-12] MEDS: COUMADIN TAB 5 MG PO SCH (09:19)
[2017-11-12] MEDS ORDERED: MILK OF MAGNESIA PO ONE (10:04)
[2017-11-12] MEDS ORDERED: ZOFRAN INJ 4 MG VIAL IVP PRN (19:40)
[2017-11-12] MEDS: AMBIEN PO SCH (21:19)
[2017-11-12] MEDS: LIPITOR TAB 40 MG PO SCH (21:19)
[2017-11-12] MEDS: CATAPRES TAB 0.1 MG PO PRN (21:19)
[2017-11-13] MEDS: NS + KCL 40 MEQ/L 1,000 ML IV SCH (00:38)
[2017-11-13] MEDS: MORPHINE SULFATE INJ 2 MG INJ IVP PRN ×2 (01:54→08:19)
[2017-11-13 06:39] LABS: BASOPHILS # (AUTO) 0.1 X10^3/uL (0.0-0.1); BASOPHILS % (AUTO) 1.1 % (0.2-1.0); EOSINOPHILS # (AUTO) 0.1 x10^3/uL (0.0-0.2); EOSINOPHILS % (AUTO) 1.3 % (0.9-2.9); HEMATOCRIT 38.8 % (42.0-54.0); HEMOGLOBIN 13.1 g/dL (13.5-18.0); LYMPHOCYTES # (AUTO) 1.4 X10^3/uL (1.3-2.9); LYMPHOCYTES % (AUTO) 19.9 % (21.0-51.0); MEAN CORPUSCULAR HEMOGLOBIN 31.2 pg (27.0-34.0); MEAN CORPUSCULAR HGB CONC 33.7 g/dL (33.0-35.0); MEAN CORPUSCULAR VOLUME 92.6 fL (80.0-100.0); MONOCYTES # (AUTO) 0.5 x10^3/uL (0.3-0.8); MONOCYTES % (AUTO) 7.6 % (0.0-13.0); NEUTROPHILS # (AUTO) 4.8 x10^3/uL (2.2-4.8); NEUTROPHILS % (AUTO) 70.1 % (42.0-75.0); PLATELET COUNT 180 X10^3/uL (150.0-450.0); RED BLOOD COUNT 4.19 X10^6/uL (4.7-6.0); RED CELL DISTRIBUTION WIDTH 14.7 % (11.6-16.5); WHITE BLOOD COUNT 6.8 X10^3/uL (3.6-10.0)
[2017-11-13 07:05] LABS: ALANINE AMINOTRANSFERASE 18 Units/L (12-78); ALBUMIN 2.7 g/dL (3.4-5.0); ALKALINE PHOSPHATASE 102 Units/L (46-116); ASPARTATE AMINO TRANSFERASE 11 Units/L (15-37); BLOOD UREA NITROGEN 34 mg/dL (7-18); CALCIUM 8.7 mg/dL (8.5-10.1); CARBON DIOXIDE 24.9 mmol/L (21-32); CHLORIDE 108 mmol/L (98-107); COR CA(FOR HYPOALB) 9.7 mg/dL (8.5-10.1); CREATININE 1.79 mg/dL (0.70-1.30); SODIUM 142 mmol/L (136-145); TOTAL PROTEIN 6.1 g/dL (6.4-8.2); eGFR NON BLACK RACES 41 (>60)
[2017-11-13 08:11] LABS: ABG BASE EXCESS 1.2 mmol/L (-2.0-2.0)
[2017-11-13 08:12] LABS: ABG ALLEN TEST POS
[2017-11-13 08:39] LABS: CKMB % 1.5 % (<4); CREATINE KINASE 65 Units/L (39-308); CREATINE KINASE MB < 1.0 ng/mL (0-4.0); TROPONIN I < 0.02 ng/mL (0-1.5)
[2017-11-13] MEDS ORDERED: LEXAPRO ONE (09:02)
[2017-11-13] MEDS ORDERED: TOPROL XL PO ONE (09:02)
[2017-11-13] MEDS: ZESTRIL TAB 40 MG PO SCH (09:05)
[2017-11-13] MEDS: CARDIZEM CD 240 MG PO SCH (09:05)
[2017-11-13] MEDS: MOBIC TAB 15 MG PO SCH (09:05)
[2017-11-13] MEDS: TOPROL XL PO SCH (09:05)
[2017-11-13] MEDS: FLOMAX PO SCH (09:05)
[2017-11-13] MEDS: LEXAPRO PO SCH (09:05)
[2017-11-13] MEDS: HYDROCHLOROTHIAZIDE 25 MG TAB PO SCH (09:05)
[2017-11-13] MEDS: REQUIP PO SCH (09:05)
[2017-11-13] MEDS: COUMADIN TAB 5 MG PO SCH (09:07)
[2017-11-13] MEDS: PROTONIX TAB 40 MG PO SCH (09:08)
[2017-11-13] MEDS: CORDARONE TAB 200 MG PO SCH (09:09)
--- NOTE | 2017-11-13 09:21 | RAD ---
HISTORY: 67-year-old male with shortness of breath and chest pain. Study: Frontal view of the chest. Comparison: CT chest 11/11/2017 Findings: Left chest AICD is stable. The trachea is midline. The cardiac silhouette is significantly enlarged and stable with mild pulmon anne marie edema and prominent interstitium/perihilar lung markings. Trace effusions likely. No pneumothorax . Soft tissues are unremarkable. Osseous structures are unremarkable. IMPRESSION: 1. Cardiomegaly with mild pulmonary edema and trace effusions likely, correlate with serology for CH F exacerbation and clinically for underlying infectious process. Reported By:
[2017-11-13] MEDS ORDERED: HEPARIN SODIUM IN D5W 25,000 UNITS/500 ML BAG IV PRN (09:59)
[2017-11-13] MEDS ORDERED: HEPARIN SODIUM INJ 5000 UNITS ONE ×2 (11:30→11:32)
[2017-11-13] MEDS ORDERED: HEPARIN SODIUM INJ 5000 UNITS IVP ONE (11:41)
--- NOTE | 2017-11-13 12:48 | DR.H&P ---
H&P - History & Physical for Day of: H&P Date: 11/11/17 - Chief Complaint Chief Complaint: multiple falls, cuts to arms, leg, ams per family - History of Present Illness History of Present Illness: 67 WM ER ADMISSION AFTER PRESENTING WITH FAMILY CO PT HAS HAD MULTIPLE FALLS, ABRAISION TO UPPER AND LOWER EXTREMITIES. PT DENIES ANY MEMORY IMPAIRMENT OR CONFUSION. PT CO SOB AND EPISODES OF CHEST PRESSURE. PT HAS PMH OF AFIB, UNCONTROLLED HTN, OA, GERD. PT HAS HX OF NON COMPLIANCE WITH MEDICATION. PT HAS BEEN UNDER THE CARE OF DR GAN FOR AFIB, WAS SET UP FOR CARDIOVERSION HELD PROCEDURE DUE TO INR<2. PT HAD CT CHEST, HEAD IN ER. CT HEAD REVEALED MULTPLE INFARCTS. PT EKG AFIB. ELEVATED CREATININE, ACUTE ON CHRONIC RENAL INSUFF. PT ADMITTED FOR SERIAL CE - Past Medical History Past Medical History: Coronary Artery Disease, CVA, GERD, Hypertension, MD - Past Surgical History Surgical History: Abdominal Surgery, Ortho Surgery, Tonsillectomy - Family History Family Medical History: Diabetes Mellitus, Cancer, Coronary Artery Disease, Hypertension - Social History Does patient currently use any type of tobacco product: No Have you used tobacco products in the last 12 months: No Type of Tobacco Use: None Does any household member use tobacco: No Alcohol Use: Occasionally Drug Use: None - Medications Home Medications: No Known Drug Allergies Allergy (Verified 11/11/17 13:06) CONTINUE taking the following medications diltiazem HCl 240 mg PO DAILY 11/11/17 [History] escitalopram oxalate 10 mg PO DAILY 11/11/17 [History] hydrochlorothiazide 25 mg PO DAILY 11/11/17 [History] lisinopril 40 mg PO DAILY 11/11/17 [History] meloxicam 75 mg PO DAILY 11/11/17 [History] metoprolol succinate 100 mg PO DAILY 11/11/17 [History] pantoprazole 40 mg PO DAILY 11/11/17 [History] ropinirole 1 mg PO DAILY 11/11/17 [History] zolpidem 10 mg PO HS 11/11/17 [History] - Review of Systems Constitutional: Weakness Eyes: No Symptoms Reported ENT: No Symptoms Reported Respiratory: SOB with Excertion Cardiovascular: Chest Pain, Palpitations, Edema, Light Headedness Gastrointestinal: Nausea, Constipation Genitourinary: No Symptoms Reported Musculoskeletal: No Symptoms Reported Skin: Bruising, Wound Neurological: Weakness. denies: Confusion, Seizures - Physical Exam Vital Signs: Temperature 98.4 F Pulse Rate [Right Brachial] 77 Pulse Rate [Left] 88 Pulse Rate 86 Respiratory Rate 20 Blood Pressure [Left Arm] 195/98 Blood Pressure [Right Arm] 135/99 Blood Pressure 153/108 O2 Sat by Pulse Oximetry 93 Oriented: Normal Eyes: Normal Ear: Normal Nose: Normal Throat: Dry Respiratory: RLL Diminished, LLL Diminished Cardiovascular: Irregular, Edema : Normal Auscultation: Bowel Sounds: Normal Palpation: Normal Tenderness: Epigastric Skin: Decreased Turgur, Wound (MULTIPLE SKIN TEARS TO RUE, LLE), Bruising Musculoskeletal: Right, Left, Knee, Back:Lumbar Psychiatric: Depression Affect: Flat Speech Pattern: Clear, Appropriate - Assessment/Plan (1) Shortness of breath Status: Acute Plan: ADMIT, SERIAL CE EKG, CONTINUOUS CARDIAC MONITORING. XRAYS DONE IN ER, VERIFY HOME MEDS, US. RESUME ANTICOAGULANT THERAPY, BP MONITORING AND CONTROL, LIPID CONTROL. GENTLE HYDRATION, RATE CONTROL (2) Afib Status: Acute (3) Confusion Status: Acute (4) Chest pain Status: Acute (5) Uncontrolled hypertension Status: Acute (6) Falls frequently Status: Acute (7) Osteoarthritis Status: Acute (8) Renal insufficiency Status: Acute - Allergies Allergies/Adverse Reactions: Allergies Allergy/AdvReac Type Severity Reaction Status Date / Time No Known Drug Allergies Allergy Verified 11/11/17 13:06
[2017-11-13 12:56] VITALS: BP 120/52
--- NOTE | 2017-11-30 00:05 | PCM.DCPLAN ---
Discharge Summary - Admission Date Date of Admission: 11/11/17 - Discharge Date Discharge Date: 11/13/17 - Admission Diagnoses (1) Atrial fibrillation Status: Acute (2) Chest pain Status: Acute (3) Chronic kidney disease (CKD) Status: Acute (4) Contusion of right knee and lower leg Status: Acute (5) Dehydration, mild Status: Acute (6) Falls frequently Status: Acute (7) Shortness of breath Status: Acute - Discharge Diagnoses Discharge Diagnosis: SAME ADMISSION DIAGNOSIS - Discharge Medications Discharge Medications: Home Medication List diltiazem HCl 240 mg PO DAILY 11/11/17 [History] escitalopram oxalate 10 mg PO DAILY 11/11/17 [History] hydrochlorothiazide 25 mg PO DAILY 11/11/17 [History] lisinopril 40 mg PO DAILY 11/11/17 [History] meloxicam 75 mg PO DAILY 11/11/17 [History] metoprolol succinate 100 mg PO DAILY 11/11/17 [History] pantoprazole 40 mg PO DAILY 11/11/17 [History] ropinirole 1 mg PO DAILY 11/11/17 [History] zolpidem 10 mg PO HS 11/11/17 [History] Prescriptions: - Hospital Course Vital Signs: Temperature 97.9 F Pulse Rate [Right Brachial] 69 Pulse Rate [Left] 88 Pulse Rate 86 Respiratory Rate 11 Blood Pressure [Left Arm] 109/80 Blood Pressure [Right Arm] 120/52 Blood Pressure 153/108 O2 Sat by Pulse Oximetry 96 Latest Lab Results: Laboratory Last Values WBC 6.8 X10^3/uL (3.6-10.0) 11/13/17 06:00 RBC 4.19 X10^6/uL (4.7-6.0) L 11/13/17 06:00 Hgb 13.1 g/dL (13.5-18.0) L 11/13/17 06:00 Hct 38.8 % (42.0-54.0) L 11/13/17 06:00 MCV 92.6 fL (80.0-100.0) 11/13/17 06:00 MCH 31.2 pg (27.0-34.0) 11/13/17 06:00 MCHC 33.7 g/dL (33.0-35.0) 11/13/17 06:00 RDW 14.7 % (11.6-16.5) 11/13/17 06:00 Plt Count 180 X10^3/uL (150.0-450.0) 11/13/17 06:00 MPV 10.0 fL (7.4-11.0) 11/13/17 06:00 Neut % (Auto) 70.1 % (42.0-75.0) 11/13/17 06:00 Lymph % (Auto) 19.9 % (21.0-51.0) L 11/13/17 06:00 Ocean % (Auto) 7.6 % (0.0-13.0) 11/13/17 06:00 Eos % (Auto) 1.3 % (0.9-2.9) 11/13/17 06:00 Baso % (Auto) 1.1 % (0.2-1.0) H 11/13/17 06:00 Neut # (Auto) 4.8 x10^3/uL (2.2-4.8) 11/13/17 06:00 Lymph # (Auto) 1.4 X10^3/uL (1.3-2.9) 11/13/17 06:00 Ocean # (Auto) 0.5 x10^3/uL (0.3-0.8) 11/13/17 06:00 Eos # (Auto) 0.1 x10^3/uL (0.0-0.2) 11/13/17 06:00 Baso # (Auto) 0.1 X10^3/uL (0.0-0.1) 11/13/17 06:00 Absolute Nucleated RBC 0.1 /100WBC 11/13/17 06:00 INR Target Range - 11/12/17 05:25 INR 1.23 (0.8-1.3) 11/12/17 05:25 APTT 32.0 SECONDS (22.9-36.5) 11/13/17 10:17 PTT Comment - 11/13/17 10:17 Sample Site Lr 11/13/17 08:06 ABG pH 7.450 (7.35-7.45) 11/13/17 08:06 ABG pCO2 36.0 mmHg (35.0-45.0) 11/13/17 08:06 ABG pO2 67.0 mmHg (80.0-100.0) L 11/13/17 08:06 ABG HCO3 25.0 mmol/L (22-26) 11/13/17 08:06 ABG O2 Saturation 94.0 % (90-100) 11/13/17 08:06 ABG Base Excess 1.2 mmol/L (-2.0-2.0) 11/13/17 08:06 Feng Test Pos 11/13/17 08:06 A-a Gradient 116.0 mmHg 11/13/17 08:06 FiO2 32.000 11/13/17 08:06 Blood Gas Comments Pt jaimee well. cdn 11/13/17 08:06 Sodium 142 mmol/L (136-145) 11/13/17 06:00 Corrected Sodium TNP 11/13/17 06:00 Potassium 3.8 mmol/L (3.5-5.1) 11/13/17 06:00 Chloride 108 mmol/L (98-107) H 11/13/17 06:00 Carbon Dioxide 24.9 mmol/L (21-32) 11/13/17 06:00 BUN 34 mg/dL (7-18) H 11/13/17 06:00 Creatinine 1.79 mg/dL (0.70-1.30) H 11/13/17 06:00 Est GFR (MDRD) Af Amer 49 (>60) L 11/13/17 06:00 Est GFR (MDRD) Non-Af 41 (>60) L 11/13/17 06:00 Glucose 96 mg/dL (65-99) 11/13/17 06:00 Calcium 8.7 mg/dL (8.5-10.1) 11/13/17 06:00 Corrected Calcium 9.7 mg/dL (8.5-10.1) 11/13/17 06:00 Magnesium 1.9 mg/dL (1.7-2.9) 11/12/17 05:25 Total Bilirubin 0.90 mg/dL (0.2-1.0) 11/13/17 06:00 AST 11 Units/L (15-37) L 11/13/17 06:00 ALT 18 Units/L (12-78) 11/13/17 06:00 Alkaline Phosphatase 102 Units/L (46-116) 11/13/17 06:00 Creatine Kinase 65 Units/L (39-308) 11/13/17 06:00 CK-MB (CK-2) < 1.0 ng/mL (0-4.0) 11/13/17 06:00 CK/CKMB % Calc 1.5 % (<4) 11/13/17 06:00 Troponin I < 0.02 ng/mL (0-1.5) 11/13/17 06:00 Total Protein 6.1 g/dL (6.4-8.2) L 11/13/17 06:00 Albumin 2.7 g/dL (3.4-5.0) L 11/13/17 06:00 Globulin 3.4 g/dL (2.5-4.5) 11/13/17 06:00 Albumin/Globulin Ratio 0.8 Ratio (1.1-2.1) L 11/13/17 06:00 Triglycerides 65 mg/dL (0-150) 11/12/17 05:25 Cholesterol 150 mg/dL (0-200) 11/12/17 05:25 LDL Cholesterol, Calc 98 mg/dL (0-100) 11/12/17 05:25 HDL Cholesterol 39 mg/dL (40-60) L 11/12/17 05:25 Cholesterol/HDL Ratio 3.8 (0.0-5.0) 11/12/17 05:25 Specimen Type Random urine 11/11/17 16:22 Urine Color Dark yellow (YELLOW) 11/11/17 16:22 Urine Appearance Slightly hazy (CLEAR) 11/11/17 16:22 Urine pH 5.0 (5.0 - 8.0) 11/11/17 16:22 Ur Specific [place] 1.025 (1.000-1.030) 11/11/17 16:22 Urine Protein 3+ (NEGATIVE) 11/11/17 16:22 Urine Glucose (UA) Negative (NEGATIVE) 11/11/17 16:22 Urine Ketones Negative (NEGATIVE) 11/11/17 16:22 Urine Occult Blood 1+ (NEGATIVE) 11/11/17 16:22 Urine Nitrite Negative (NEGATIVE) 11/11/17 16:22 Urine Bilirubin Negative (NEGATIVE) 11/11/17 16:22 Urine Urobilinogen 1+ (NORMAL) 06/26/18 16:22 Ur Leukocyte Esterase 1+ (NEGATIVE) 11/11/17 16:22 Urine RBC 3-5 /HPF (NONE SEEN) 11/11/17 16:22 Urine WBC 3-5 /HPF (NONE SEEN) 11/11/17 16:22 Ur Squamous Epith Cells Few /HPF (NEGATIVE) 11/11/17 16:22 Amorphous Sediment 1+ /HPF (NEGATIVE) 11/11/17 16:22 Urine Bacteria Trace /HPF (NEGATIVE) 11/11/17 16:22 Hyaline Casts Few /LPF (NEGATIVE) 11/11/17 16:22 Ur Culture Indicated? No/not indicated 11/11/17 16:22 Urine Opiates Screen Negative (NEG=<300) 11/12/17 04:40 Urine Methadone Screen Negative (NEG=<300) 11/12/17 04:40 Ur Barbiturates Screen Negative (NEG=<200) 11/12/17 04:40 Ur Phencyclidine Scrn Negative (NEG=<25) 11/12/17 04:40 Ur Amphetamines Screen Negative (NEG=<1000) 11/12/17 04:40 U Benzodiazepines Scrn Negative (NEG=<200) 11/12/17 04:40 Urine Cocaine Screen Negative (NEG=<300) 11/12/17 04:40 U Marijuana (THC) Screen Negative (NEG=<50) 11/12/17 04:40 Hospital Course: he patient is a 67-year-old white male who was an emergency room admission after presenting with family with complaints of multiple falls and abrasions to his upper extremities. The patient has a history of atrial fibrillation and has been planned for cardioversion. The patient was supposed to have this 2-3 weeks ago but they were unable to perform because the patient had not been compliant with his anticoagulant therapy. The patients daughter states that he has some episodes of confusion. The patient states that he has been cutting grass and normal activities at home. He denies any confusion or changes in memory. There is no family present this morning. He does have a history of uncontrolled high blood pressure and is non-compliant with blood pressure medication regimen. He states that he has not been taking any of his medications. The patient reports that he has a bulldog at home that tripped him up several times, causing his extremity injury. The patient had a CT scan of his head and chest as well as abdomen and pelvis on admission. The patient was noted to have diffuse degenerative changes to his spine as well as a fecal impaction. The patient also has small vessel disease as well as findings consistent with multiple basal ganglia infarcts. The patients blood pressure this morning was 157/92. We did resume the patients home medications including his Coumadin, Cardizem, Lisinopril, and he is also on a Beta Lei. The patient complained of some upper GI symptoms. He is on Protonix. The patient does have some renal insufficiency with a creatinine of 2.08. The patient has had serial cardiac enzymes which were stable at this time. We will continue with Cardiac monitoring , gentle hydration, blood pressure control, and anticoagulant therapy. Patient did develop chest pain and was transferred to ICU. Patient was transferred to [facility] for further cardiac monitoring. - Discharge Plan Disposition: [facility] Condition: Stable - Follow ups/Referrals Follow ups/Referrals: SAÚL RAUSCH [Other] KERRY GARCIA [Primary Care Provider] - 3 days - Instructions
== END 2017-11-13 14:20 | disposition short-term general hospital (02) ==
LOC: MED/SURG 13:00 → ER 13:00 → MED/SURG 16:26 → ICU 11-13 10:34
PROVIDERS: ADMIT Internal Medicine; ATTEND Internal Medicine
DX: S40.819A Abrasion of unspecified upper arm, initial encounter; I51.7 Cardiomegaly; R07.89 Other chest pain; S80.819A Abrasion, unspecified lower leg, initial encounter; K21.9 Gastro-esophageal reflux disease without esophagitis; I25.10 Atherosclerotic heart disease of native coronary artery without angina pectoris; R06.02 Shortness of breath; Z79.1 Long term (current) use of non-steroidal anti-inflammatories (NSAID); I48.91 Unspecified atrial fibrillation; E86.0 Dehydration; W18.39XA Other fall on same level, initial encounter; R29.6 Repeated falls; Z91.14 Patient's other noncompliance with medication regimen; N18.9 Chronic kidney disease, unspecified; K56.41 Fecal impaction; Y92.89 Other specified places as the place of occurrence of the external cause; E87.6 Hypokalemia; Z79.899 Other long term (current) drug therapy; R94.31 Abnormal electrocardiogram [ECG] [EKG]; I12.9 Hypertensive chronic kidney disease with stage 1 through stage 4 chronic kidney disease, or unspecified chronic kidney disease; R26.89 Other abnormalities of gait and mobility
CPT/HCPCS: 36415; 36600; 70450; 71010; 71045; 71250; 72125; 74176; 80053; 80061; 80307; 81001; 82550; 82553; 82803; 83735; 84484; 85025; 85610; 85730; 93005; 93010; 94760; 96365; 96374; 97163; 97167; 99283; 99284; A4222; G0378; G0434; J1170; J1644; J1885; J2270; J2405

== ENCOUNTER 2017-12-26 20:19 | Inpatient (IN) ==
--- NOTE | 2017-12-26 20:54 | DR.DIZZY ---
HPI - Time seen Time seen: 20:38 - Complaint Chief Complaint Doctor Comments: Patient states the patient was having right sided weakness, slurred speech with problems walking onset about 1 1/2 hour ago. Son states he just left his house about two hours ago and he was walking and talking normally and drove himself home. Patient denies headache, dizziness , chest pain, SOB, nausea or vomiting. patient states he has been having problems walking and has been staggering this evening. Family states he has had a CVA in the past and he think he is on coumadin. Patient with a history of atrial fibrillation and the son says he has a vest and a pacemaker. States he is a patient of Dr. Maradiaga. He denies recent trauma but EMS states he has a history of multiple falls. Patient with lesion with swelling on his right lower leg with erythema and crusiting. Patient with right leg weakness and right hand weakness with slurred speech. Patient states he is 51 years old. - Nurses Notes Reviewed Nurses Notes Review: Yes - Source History Provided: Patient, Family Member, EMS - Mode of Arrival Mode of Arrival: EMS - Timing Came on: Gradually Symptom Onset: Unknown Onset of Symptoms Start Date: 12/26/17 Onset of Symptoms Start Time: 07:30 - Duration Duration: Constant How lon Duration: Hours - Location of Weakness Weakness Location: Right, Arm, Leg, Facial - Context Onset: At rest Does pt take pot. toxic medication?: No History of: CVA Stroke Symptoms: Aphasia, Weakness of limb, Slurring - Severity Severity: Abnormal activity level - Modifying factors Worsens: Nothing - Associated signs and symptoms Associated Signs and Symptoms: Imbalance, Weak, Difficult Speech, Palpitations PMH - PMH Past Medical History: Coronary Artery Disease, CVA, GERD, Hypertension, [place] Past Surgical History: Yes Surgical History: Abdominal Surgery, Ortho Surgery, Tonsillectomy - Family History Family Medical History: Diabetes Mellitus, Cancer, Coronary Artery Disease, Hypertension - Social History Do you use any recreational Drugs:: No ROS - Review of Systems Constitutional: No Symptoms Reported, Weakness. negative: See HPI, Chills, Diaphoresis, Fever, Malaise, Irritable, Fatigue, Loss of Appetite, Other Eyes: No Symptoms Reported ENTM: No Symptoms Reported. negative: See HPI, Ear Pain, Ear Discharge, Pulling on Ears, Hearing Loss, Nose Pain, Nose Discharge, Epistaxis, Nose Congestion, Mouth Pain, Mouth Swelling, Loose Teeth, Drooling, Throat Pain, Throat Swelling, Ear Foreign Body, Tooth/Dental Pain Respiratoy: No Symptoms Reported, Non-Productive Cough. negative: See HPI, Productive Cough, Moist Cough, Dry Cough, Hacking Cough, Barking Cough, Brassy Cough, Orthopnea, Short of Breath, Stridor, Wheezing, Hemoptysis, Other Cardiovascular: No Symptoms Reported, Palpitations. negative: See HPI, Chest Pain, Edema, Syncope, Cyanosis, Skin Mottling, Other Gastrointestinal/Abdominal: No Symptoms Reported. negative: See HPI, Abdominal Pain, Constipation, Diarrhea, Nausea, Vomiting, Food Intolerance, Other Genitourinary: No Symptoms Reported Neurological: No Symptoms Reported, Weakness, Problems Walking, Speech Problem Musculoskeletal: Right, Hand, Leg (weakness; ) Integumentary: Lesions (right lower leg with 4 cm ulceration with erythema), Wound Hematologic/Lymphatic: No Symptoms Reported Endocrine: No Symptoms Reported Psychiatric: No Symptoms Reported PE - General Limitations: No Limitations General Appearance: Alert, In No Apparent Distress. negative: Lethargic ( slurred speech) - Head Head Exam: Normal Inspection, Atraumatic, Normocephalic - Eyes Eye exam: Normal Appearance, PERRL, EOMI. negative: Scleral Icterus, Conjunctival Injection, Nystagmus, Miosis, Mydrasis, Periorbital Swelling, Periorbital Tenderness, Other Pupils: Regular, Round: Bilateral, Reactive: Bilateral, Size: Bilateral, Size: Bilateral Sclera/Conjunctival: Normal Inspection: Bilateral Posterior Chamber: Deferred: Bilateral, Normal Inspection: Bilateral - ENT ENT Exam: Normal Exam, Normal Oropharynx, Normal External Ear Exam, Mucous Membranes Moist, TM's Normal Bilaterally (tongue protrudes midline) - Neck Neck Exam: Normal Inspection, Full ROM, Trachea Midline. negative: Tenderness, Meningismus, Lymphadenopathy, Thyromegaly, Other - Chest Chest Inspection: Normal Inspection, Symmetric Chest Wall Rise. negative: Tenderness, Rash, Abscess, Other - Respiratory Respiratory Exam: Normal Lung Sounds Bilat Respiratory Exam: Bilateral Clear to Auscultation - Cardiovascular Cardiovascular Exam: Regular Rate, Normal Rhythm, Tachycardia, Irregular Rhythm , Systolic Murmur - Abdominal Exam Abdominal Exam: Normal Inspection, Normal Bowel Sounds, Soft. negative: Distention, Tenderness, Guarding, Rebound, Rigidity, Dimnished Bowel Sounds, Hyperactive Bowel Sounds, Hypoactive Bowel Sounds, Organomegaly, Trauma, Incision, Ascites, Mass, Bruit, Pulsatile Mass, Hernia, Other Abdominal Tenderness: negative: RUQ, RLQ, LUQ, LLQ, Epigastrium, Suprapubic, Diffuse, Mild, Moderate, Severe, Other - Rectal Rectal Exam: Deferred - Extremeties Extremities Exam: Full ROM, Tenderness (right lower leg with 4 cm ulceration with erythema and crusting), Normal Capillary Refill, Edema (2+) - Back Back Exam: Normal Inspection, Full ROM - Neurologic Neurological Exam: Alert, Oriented X3, CN II-XII Intact (absent gag reflex; weakness right hand and legs). negative: Normal Gait (gait not tested; EMS states was shuffling gait), Reflexes Normal (right babinski) Patient Oriented To: Person, Place. negative: Time (thinks he is 51 years old) Speech: negative: Receptive Aphasia (slurred speech), Expressive Aphasia Cranial Nerve Exam: EOM Function (II, III, IV, ): Normal, Facial Sensation (V) : Right Abnormal, Facial Palsy (VII): Right Abnormal (slight weakness), Gag reflex (XI): Left Abnormal, Right Abnormal (no gag reflex), Spinal Accessory Function (XI): Normal, Tongue Deviation: Normal Cerebellar Function: Finger to Nose: Normal Cerebellar Function: negative: Normal Gait (gait not tested) Motor Strength - LUE: 5/5 Motor Strength - RUE: 3/5 Motor Strength - LLE: 5/5 Motor Strength - RLE: 3/5 Upper Motor Neuron Exam: Babinski Sign: Right Positive Sensory Exam Upper Extremity: Light Touch: Normal, 2 Point Discrimination: Normal Sensory Exam Lower Extremity: Light Touch: Normal, Temperature: Normal, 2 Point Discrimination: Normal DTR: bicep (L): 1+, bicep (R): 1+, Patellar (L): 1+, patellar (R): 1+ - Psychiatric Psychiatric Exam: Normal Affect, Normal Mood. negative: Depressed, Agitated, Anxious, Flat Affect, Manic, Homicidal Ideation, Suicidal Ideation, Other - Skin Skin Exam: Warm, Dry, Intact, Normal Color, Erythema (right lower leg with 4 cm ulceration with erythema.) - Vital Signs Vitals: Temperature 98.7 F Pulse Rate [Left] 98 Pulse Rate 135 Respiratory Rate 18 Blood Pressure [Left Arm] 109/80 Blood Pressure [Right Arm] 146/112 Blood Pressure 190/111 O2 Sat by Pulse Oximetry 94 Course - Reevaluation 1st: Improved - Consultation Called: 23:58 Call Returned: 23:58 (Dr. Maradiaga to admit) - Education/Counseling Education/Counseling: Patient, Family Educated On: Treatment, Diagnosis, Needs for Follow Up ROR - Labs Reviewed Laboratory Results Reviewed?: Yes (All labs and x-ray results reviewed and discussed with pateint and family) Result Diagrams: 12/26/17 22:00 12/26/17 22:00 - XRAY XRAY Interpreted by: Radiologist (CT brain: No acute intracranial bleed or large territorial infarct. Severe chronic white matter microangiopathy with chronic lacunar infarcts.) - EKG Rate: 151 [place]: Normal Rhythm: Afib Block: None, RBBB ST: Nonsp - Labs Reviewed Laboratory: WBC 6.7 X10^3/uL (3.6-10.0) 12/26/17 22:00 RBC 4.45 X10^6/uL (4.7-6.0) L 12/26/17 22:00 Hgb 13.9 g/dL (13.5-18.0) 12/26/17 22:00 Hct 40.5 % (42.0-54.0) L 12/26/17 22:00 MCV 91.1 fL (80.0-100.0) 12/26/17 22:00 MCH 31.3 pg (27.0-34.0) 12/26/17 22:00 MCHC 34.3 g/dL (33.0-35.0) 12/26/17 22:00 RDW 15.0 % (11.6-16.5) 12/26/17 22:00 Plt Count 219 X10^3/uL (150.0-450.0) 12/26/17 22:00 MPV 10.0 fL (7.4-11.0) 12/26/17 22:00 Neut % (Auto) 59.6 % (42.0-75.0) 12/26/17 22:00 Lymph % (Auto) 27.9 % (21.0-51.0) 12/26/17 22:00 [place] % (Auto) 8.9 % (0.0-13.0) 12/26/17 22:00 Eos % (Auto) 2.6 % (0.9-2.9) 12/26/17 22:00 Baso % (Auto) 1.0 % (0.2-1.0) 12/26/17 22:00 Neut # (Auto) 4.0 x10^3/uL (2.2-4.8) 12/26/17 22:00 Lymph # (Auto) 1.9 X10^3/uL (1.3-2.9) 12/26/17 22:00 [place] # (Auto) 0.6 x10^3/uL (0.3-0.8) 12/26/17 22:00 Eos # (Auto) 0.2 x10^3/uL (0.0-0.2) 12/26/17 22:00 Baso # (Auto) 0.1 X10^3/uL (0.0-0.1) 12/26/17 22:00 Absolute Nucleated RBC 0.3 /100WBC 12/26/17 22:00 INR Target Range - 12/26/17 22:00 INR 1.12 (0.8-1.3) 12/26/17 22:00 APTT 33.2 SECONDS (22.9-36.5) 12/26/17 22:00 PTT Comment - 12/26/17 22:00 D-Dimer 665 ng/mL (0-400) H* 12/26/17 22:00 Sodium 139 mmol/L (136-145) 12/26/17 22:00 Corrected Sodium TNP 12/26/17 22:00 Potassium 3.0 mmol/L (3.5-5.1) L* 12/26/17 22:00 Chloride 103 mmol/L (98-107) 12/26/17 22:00 Carbon Dioxide 28.7 mmol/L (21-32) 12/26/17 22:00 BUN 28 mg/dL (7-18) H 12/26/17 22:00 Creatinine 2.22 mg/dL (0.70-1.30) H 12/26/17 22:00 Est GFR (MDRD) Af Amer 38 (>60) L 12/26/17 22:00 Est GFR (MDRD) Non-Af 32 (>60) L 12/26/17 22:00 Glucose 96 mg/dL (65-99) 12/26/17 22:00 Calcium 8.8 mg/dL (8.5-10.1) 12/26/17 22:00 Corrected Calcium TNP 12/26/17 22:00 Magnesium 2.0 mg/dL (1.7-2.9) 12/26/17 22:00 Total Bilirubin 0.80 mg/dL (0.2-1.0) 12/26/17 22:00 AST 14 Units/L (15-37) L 12/26/17 22:00 ALT 18 Units/L (12-78) 12/26/17 22:00 Alkaline Phosphatase 130 Units/L (46-116) H 12/26/17 22:00 Creatine Kinase 72 Units/L (39-308) 12/26/17 22:00 CK-MB (CK-2) 1.3 ng/mL (0-4.0) 12/26/17 22:00 CK/CKMB % Calc 1.8 % (<4) 12/26/17 22:00 Troponin I 0.03 ng/mL (0-1.5) 12/26/17 22:00 Total Protein 7.3 g/dL (6.4-8.2) 12/26/17 22:00 Albumin 3.4 g/dL (3.4-5.0) 12/26/17 22:00 Globulin 3.9 g/dL (2.5-4.5) 12/26/17 22:00 Albumin/Globulin Ratio 0.9 Ratio (1.1-2.1) L 12/26/17 22:00 - Diagnosis Discharge Problem: Atrial fibrillation with rapid ventricular response, Uncontrolled hypertension , Hypokalemia CVA (cerebral vascular accident) Qualifiers: Laterality of affected vessel: unspecified Chronic kidney disease (CKD) Qualifiers: Chronic kidney disease stage: stage 3 (moderate) Qualified Code(s): N18.3 - Chronic kidney disease, stage 3 (moderate) - Discharge Plan Disposition: ADMITTED INPATIENT Condition: Stable - Follow ups/Referrals Follow ups/Referrals: KERRY MARADIAGA [Primary Care Provider] - 3 days - Instructions
[2017-12-26] MEDS ORDERED: CARDIZEM INJ 50 MG VIAL ONE ×3 (20:55→21:37)
[2017-12-26] MEDS ORDERED: NS 100 ML IV 100 ML IV ONE (20:57)
[2017-12-26] MEDS: CARDIZEM INJ 125 MG VIAL 125 MG in NS 100 ML IV 100 ML IV PRN (21:05)
[2017-12-26] MEDS ORDERED: CARDIZEM INJ 50 MG VIAL IVP ONE ×2 (21:13→21:36)
[2017-12-26 23:09] LABS: BASOPHILS # (AUTO) 0.1 X10^3/uL (0.0-0.1); EOSINOPHILS # (AUTO) 0.2 x10^3/uL (0.0-0.2); EOSINOPHILS % (AUTO) 2.6 % (0.9-2.9); HEMATOCRIT 40.5 % (42.0-54.0); HEMOGLOBIN 13.9 g/dL (13.5-18.0); LYMPHOCYTES # (AUTO) 1.9 X10^3/uL (1.3-2.9); LYMPHOCYTES % (AUTO) 27.9 % (21.0-51.0); MEAN CORPUSCULAR HEMOGLOBIN 31.3 pg (27.0-34.0); MEAN CORPUSCULAR HGB CONC 34.3 g/dL (33.0-35.0); MEAN CORPUSCULAR VOLUME 91.1 fL (80.0-100.0); MONOCYTES # (AUTO) 0.6 x10^3/uL (0.3-0.8); MONOCYTES % (AUTO) 8.9 % (0.0-13.0); NEUTROPHILS % (AUTO) 59.6 % (42.0-75.0); PLATELET COUNT 219 X10^3/uL (150.0-450.0); RED BLOOD COUNT 4.45 X10^6/uL (4.7-6.0); WHITE BLOOD COUNT 6.7 X10^3/uL (3.6-10.0)
--- NOTE | 2017-12-26 23:20 | RAD ---
Chest AP portable Indication: Chest pain Comparison: 11/13/2017 Findings: There is cardiomegaly with pacemaker leads as expected. There is no pneumothorax or effusio n. Mild increased interstitial markings noted Impression: Cardiomegaly and borderline edema suggesting CHF, probably slightly improved from the humberto or study Reported By:
[2017-12-26 23:39] LABS: ALANINE AMINOTRANSFERASE 18 Units/L (12-78); ALBUMIN 3.4 g/dL (3.4-5.0); ALKALINE PHOSPHATASE 130 Units/L (46-116); ASPARTATE AMINO TRANSFERASE 14 Units/L (15-37); BLOOD UREA NITROGEN 28 mg/dL (7-18); CALCIUM 8.8 mg/dL (8.5-10.1); CARBON DIOXIDE 28.7 mmol/L (21-32); CHLORIDE 103 mmol/L (98-107); CKMB % 1.8 % (<4); CREATINE KINASE 72 Units/L (39-308); CREATINE KINASE MB 1.3 ng/mL (0-4.0); CREATININE 2.22 mg/dL (0.70-1.30); SODIUM 139 mmol/L (136-145); TOTAL PROTEIN 7.3 g/dL (6.4-8.2); TROPONIN I 0.03 ng/mL (0-1.5); eGFR NON BLACK RACES 32 (>60)
[2017-12-26] MEDS ORDERED: LOVENOX INJ 100 MG SYR SC SCH (23:45)
[2017-12-26] MEDS ORDERED: ROCEPHIN 1 GRAM IV PREMIX 1 G/50 ML IV.SOLN. IV ONE (23:50)
[2017-12-27] MEDS ORDERED: NORCO 5/325 MG TAB PO PRN (00:11)
[2017-12-27] MEDS ORDERED: PHENERGAN TAB 25 MG PO PRN (00:11)
[2017-12-27] MEDS ORDERED: MORPHINE SULFATE INJ 2 MG INJ IVP PRN (00:11)
[2017-12-27] MEDS ORDERED: PROTONIX INJ 40 MG VIAL IVP ONE (00:15)
[2017-12-27] MEDS ORDERED: NS 1000 ML 1,000 ML ONE (00:29)
[2017-12-27] MEDS: K-LYTE EFFERVESCENT PO SCH ×2 (00:38→07:59)
[2017-12-27] MEDS: LOVENOX INJ 100 MG SYR SC SCH ×2 (01:43→08:10)
[2017-12-27] MEDS: D5 1/2 NS 1000 ML 1,000 ML IV SCH ×4 (02:04→21:11)
[2017-12-27 02:15] VITALS: BMI 24.8
[2017-12-27] MEDS ORDERED: CARDIZEM INJ 50 MG VIAL ONE (04:02)
[2017-12-27] MEDS ORDERED: NS 100 ML IV 100 ML IV ONE (04:03)
[2017-12-27] MEDS: CARDIZEM INJ 125 MG VIAL 125 MG in NS 100 ML IV 100 ML IV PRN ×2 (04:54→15:13)
[2017-12-27 05:43] LABS: BASOPHILS # (AUTO) 0.1 X10^3/uL (0.0-0.1); BASOPHILS % (AUTO) 1.1 % (0.2-1.0); EOSINOPHILS # (AUTO) 0.2 x10^3/uL (0.0-0.2); EOSINOPHILS % (AUTO) 3.3 % (0.9-2.9); HEMOGLOBIN 13.5 g/dL (13.5-18.0); LYMPHOCYTES # (AUTO) 1.7 X10^3/uL (1.3-2.9); LYMPHOCYTES % (AUTO) 26.7 % (21.0-51.0); MEAN CORPUSCULAR HEMOGLOBIN 31.4 pg (27.0-34.0); MEAN CORPUSCULAR HGB CONC 34.7 g/dL (33.0-35.0); MEAN CORPUSCULAR VOLUME 90.5 fL (80.0-100.0); MEAN PLATELET VOLUME 9.8 fL (7.4-11.0); MONOCYTES # (AUTO) 0.3 x10^3/uL (0.3-0.8); NEUTROPHILS % (AUTO) 63.9 % (42.0-75.0); PLATELET COUNT 186 X10^3/uL (150.0-450.0); RED BLOOD COUNT 4.31 X10^6/uL (4.7-6.0); RED CELL DISTRIBUTION WIDTH 14.5 % (11.6-16.5); WHITE BLOOD COUNT 6.2 X10^3/uL (3.6-10.0)
[2017-12-27 05:48] LABS: CHOL/HDL RATIO 3.7 (0.0-5.0)
[2017-12-27 05:58] LABS: ALANINE AMINOTRANSFERASE 16 Units/L (12-78); ALKALINE PHOSPHATASE 121 Units/L (46-116); ASPARTATE AMINO TRANSFERASE 16 Units/L (15-37); BLOOD UREA NITROGEN 22 mg/dL (7-18); CALCIUM 8.5 mg/dL (8.5-10.1); CHLORIDE 105 mmol/L (98-107); COR CA(FOR HYPOALB) 9.3 mg/dL (8.5-10.1); SODIUM 140 mmol/L (136-145); TOTAL PROTEIN 6.8 g/dL (6.4-8.2); eGFR NON BLACK RACES 43 (>60)
[2017-12-27] MEDS ORDERED: TOPROL XL PO ONE (07:53)
[2017-12-27] MEDS: DILTIAZEM HCL 240 MG PO SCH ×2 (08:00→08:02)
[2017-12-27] MEDS: GENTAMICIN TOPICAL OINT TOP SCH ×2 (08:17→21:12)
[2017-12-27] MEDS ORDERED: CORDARONE TAB 200 MG PO SCH (09:00)
[2017-12-27] MEDS ORDERED: ZESTRIL TAB 40 MG PO SCH (09:00)
[2017-12-27] MEDS ORDERED: TOPROL XL PO SCH (09:00)
[2017-12-27] MEDS ORDERED: CARDIZEM CD 240 MG PO SCH (09:00)
--- NOTE | 2017-12-27 10:08 | DR.H&P ---
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 Patient denies headache, dizziness, chest pain, SOB, nausea or vomiting. Patient states he has been having problems walking and has been staggering this evening. Family states he has had a CVA in the past and he think he is on coumadin. Patient with a history of atrial fibrillation and the son says he has pace maker, under the care [facility]. He denies recent trauma but EMS states he has a history of multiple falls. Patient with right leg weakness and right hand weakness with slurred speech. - Past Medical History Past Medical History: Coronary Artery Disease, CVA, GERD, Hypertension, [place] - Past Surgical History Surgical History: Appendectomy - Family History Family Medical History: Diabetes Mellitus - Social History Does patient currently use any type of tobacco product: No Have you used tobacco products in the last 12 months: No Type of Tobacco Use: None Does any household member use tobacco: No Alcohol Use: Occasionally Drug Use: None - Medications Home Medications: No Known Drug Allergies Allergy (Verified 11/11/17 13:06) - Review of Systems Constitutional: Weakness Eyes: No Symptoms Reported ENT: No Symptoms Reported Respiratory: SOB with Excertion Cardiovascular: Palpitations, Edema Gastrointestinal: No Symptoms Reported Genitourinary: No Symptoms Reported Musculoskeletal: Back Pain, Leg Pain Skin: Bruising, Wound Neurological: Weakness, Confusion (regarding events immediate prior to admission ) - Physical Exam Vital Signs: Temperature 98.3 F Pulse Rate [Left] 89 Pulse Rate 135 Respiratory Rate 24 Blood Pressure [Left Arm] 116/93 Blood Pressure [Right Arm] 146/112 Blood Pressure 190/111 O2 Sat by Pulse Oximetry 100 Oriented: Time, Person, Place Eyes: Normal Ear: Normal Nose: Normal Throat: Normal Respiratory: RLL Diminished, LLL Diminished Cardiovascular: Tachycardia, Irregular, Edema : Normal Auscultation: Bowel Sounds: Normal Palpation: Normal Tenderness: Normal Skin: Decreased Turgur, Wound (rlq), Bruising Musculoskeletal: Right, Left, Knee, Back:Lumbar Psychiatric: Depression Mood Description: Depressed Affect: Depressed Speech Pattern: Clear, Appropriate - Assessment/Plan (1) Confusion Status: Acute Plan: ADMIT ICU, CT HEAD ON ADMISSION IN ER R/O ACUTE CVA, AFIB WITH RVR, STARTED ON CARDIZEM DRIP, CONTINOUS CARDIAC MONITORING. ANTICOAGULANT, POTASSIUM REPLACEMENT PER PROTOCOL. BP MONITORING, VERIFY HOME MEDS. SUPPLEMENTAL O2 (2) Atrial fibrillation with rapid ventricular response Status: Acute (3) Hypertension Qualifiers: Hypertension type: essential hypertension Qualified Code(s): I10 - Essential (primary) hypertension Status: Acute (4) Contusion of right knee and lower leg Qualifiers: Encounter type: initial encounter Qualified Code(s): S80.01XA - Contusion of right knee, initial encounter; S80.11XA - Contusion of right lower leg, initial encounter; S80.11XA - Contusion of right lower leg, initial encounter Status: Acute (5) Chronic kidney disease (CKD) Qualifiers: Chronic kidney disease stage: stage 3 (moderate) Qualified Code(s): N18.3 - Chronic kidney disease, stage 3 (moderate) Status: Acute - Allergies Allergies/Adverse Reactions: Allergies Allergy/AdvReac Type Severity Reaction Status Date / Time No Known Drug Allergies Allergy Verified 11/11/17 13:06
--- NOTE | 2017-12-27 10:33 | PCM.PROG ---
Progress Note - Progress Note for Day of Date of Exam: 12/27/17 - Subjective Subjective: 67 WM ADMITTED VIA ER ON 12/26 WITH CO TIA SYMPTOMS WITH CT HEAD ON ADMISSION W/O ACUTE FINDINGS. PT AWAKE AND ALERT THIS AM, NO UNILATERAL WEAKNESS , DENIES CP OR SOB. PT HAS HX OF AFIB, EKG ON ER ARRIVAL AFIB WITH RVR STARTED ON CARDIZEM DRIP AND ON LOVENOX. PT RATE 80'S THIS AM, CONTINUED AFIB. PT HYPOKALEMIA, CURRENTLY ON K+REPLACMENT, CXR WITH MILD CHF, DIMINISHED LUNG BASES ON EXAM, WILL GIVE LASIX 20MG IV X1 DOSE, ENCOURAGE GENTLE INCREASE PO HYDRATION DUE TO RENAL FUNCTION. - Past Medical Family Social History Past Med/Fam/Surg Hx: No changes since H&P Allergies: Allergies No Known Drug Allergies Allergy (Verified 11/11/17 13:06) - Review of Systems ROS: No change since H&P - Vital Signs and I&O's Vital Signs: Temperature 98.3 F Pulse Rate [Left] 83 Pulse Rate 135 Respiratory Rate 24 Blood Pressure [Left Arm] 116/93 Blood Pressure [Right Arm] 121/97 Blood Pressure 190/111 O2 Sat by Pulse Oximetry 99 Intake and Output: Intake & Output 12/24/17 12/25/17 12/26/17 12/27/17 11:59 11:59 11:59 11:59 Intake Total 645 / 645 Output Total 400 / 400 Balance 245 / 245 - Physical Exam Oriented: Normal, Time, Person Eyes: Normal Ear: Normal Nose: Normal Throat: Normal Respiratory: Diminished Cardiovascular: Irregular, Edema : Normal Auscultation: Bowel Sounds: Normal Tenderness: Normal Skin: Decreased Turgur, Wound (rlq), Bruising Musculoskeletal: Right, Left, Knee, Back:Lumbar Psychiatric: Depression Mood Description: Depressed Affect: Depressed Speech Pattern: Clear, Appropriate - Laboratory and Diagnostics Result Diagrams: 12/27/17 04:55 12/27/17 04:55 Labs: Laboratory WBC 6.2 X10^3/uL (3.6-10.0) 12/27/17 04:55 RBC 4.31 X10^6/uL (4.7-6.0) L 12/27/17 04:55 Hgb 13.5 g/dL (13.5-18.0) 12/27/17 04:55 Hct 39.0 % (42.0-54.0) L 12/27/17 04:55 MCV 90.5 fL (80.0-100.0) 12/27/17 04:55 MCH 31.4 pg (27.0-34.0) 12/27/17 04:55 MCHC 34.7 g/dL (33.0-35.0) 12/27/17 04:55 RDW 14.5 % (11.6-16.5) 12/27/17 04:55 Plt Count 186 X10^3/uL (150.0-450.0) 12/27/17 04:55 MPV 9.8 fL (7.4-11.0) 12/27/17 04:55 Neut % (Auto) 63.9 % (42.0-75.0) 12/27/17 04:55 Lymph % (Auto) 26.7 % (21.0-51.0) 12/27/17 04:55 [place] % (Auto) 5.0 % (0.0-13.0) 12/27/17 04:55 Eos % (Auto) 3.3 % (0.9-2.9) H 12/27/17 04:55 Baso % (Auto) 1.1 % (0.2-1.0) H 12/27/17 04:55 Neut # (Auto) 4.0 x10^3/uL (2.2-4.8) 12/27/17 04:55 Lymph # (Auto) 1.7 X10^3/uL (1.3-2.9) 12/27/17 04:55 [place] # (Auto) 0.3 x10^3/uL (0.3-0.8) 12/27/17 04:55 Eos # (Auto) 0.2 x10^3/uL (0.0-0.2) 12/27/17 04:55 Baso # (Auto) 0.1 X10^3/uL (0.0-0.1) 12/27/17 04:55 Absolute Nucleated RBC 0.1 /100WBC 12/27/17 04:55 INR Target Range - 12/26/17 22:00 INR 1.12 (0.8-1.3) 12/26/17 22:00 APTT 33.2 SECONDS (22.9-36.5) 12/26/17 22:00 PTT Comment - 12/26/17 22:00 D-Dimer 665 ng/mL (0-400) H* 12/26/17 22:00 Sodium 140 mmol/L (136-145) 12/27/17 04:55 Corrected Sodium TNP 12/27/17 04:55 Potassium 3.1 mmol/L (3.5-5.1) L 12/27/17 04:55 Chloride 105 mmol/L (98-107) 12/27/17 04:55 Carbon Dioxide 27.0 mmol/L (21-32) 12/27/17 04:55 BUN 22 mg/dL (7-18) H 12/27/17 04:55 Creatinine 1.70 mg/dL (0.70-1.30) H 12/27/17 04:55 Est GFR (MDRD) Af Amer 52 (>60) L 12/27/17 04:55 Est GFR (MDRD) Non-Af 43 (>60) L 12/27/17 04:55 Glucose 105 mg/dL (65-99) H 12/27/17 04:55 Calcium 8.5 mg/dL (8.5-10.1) 12/27/17 04:55 Corrected Calcium 9.3 mg/dL (8.5-10.1) 12/27/17 04:55 Magnesium 2.0 mg/dL (1.7-2.9) 12/26/17 22:00 Total Bilirubin 0.70 mg/dL (0.2-1.0) 12/27/17 04:55 AST 16 Units/L (15-37) 12/27/17 04:55 ALT 16 Units/L (12-78) 12/27/17 04:55 Alkaline Phosphatase 121 Units/L (46-116) H 12/27/17 04:55 Creatine Kinase 72 Units/L (39-308) 12/26/17 22:00 CK-MB (CK-2) 1.3 ng/mL (0-4.0) 12/26/17 22:00 CK/CKMB % Calc 1.8 % (<4) 12/26/17 22:00 Troponin I 0.03 ng/mL (0-1.5) 12/26/17 22:00 Total Protein 6.8 g/dL (6.4-8.2) 12/27/17 04:55 Albumin 3.0 g/dL (3.4-5.0) L 12/27/17 04:55 Globulin 3.8 g/dL (2.5-4.5) 12/27/17 04:55 Albumin/Globulin Ratio 0.8 Ratio (1.1-2.1) L 12/27/17 04:55 Triglycerides 61 mg/dL (0-150) 12/27/17 04:55 Cholesterol 165 mg/dL (0-200) 12/27/17 04:55 LDL Cholesterol, Calc 108 mg/dL (0-100) H 12/27/17 04:55 HDL Cholesterol 45 mg/dL (40-60) 12/27/17 04:55 Cholesterol/HDL Ratio 3.7 (0.0-5.0) 12/27/17 04:55 - Plan (1) Confusion Status: Acute Plan: CT HEAD ON ADMISSION IN ER R/O ACUTE CVA WITHOUT ACUTE FINDINGS. AFIB WITH RVR, STARTED ON CARDIZEM DRIP, CONTINOUS CARDIAC MONITORING CURRENTLY CONTROLLED RATE, ON LOVENOX FOR. ANTICOAGULANT, POTASSIUM REPLACEMENT PER PROTOCOL. BP MONITORING,. SUPPLEMENTAL O2 (2) Atrial fibrillation with rapid ventricular response Status: Acute (3) Hypertension Status: Acute Qualifiers: Hypertension type: essential hypertension Qualified Code(s): I10 - Essential (primary) hypertension (4) Contusion of right knee and lower leg Status: Acute Qualifiers: Encounter type: initial encounter Qualified Code(s): S80.01XA - Contusion of right knee, initial encounter; S80.11XA - Contusion of right lower leg, initial encounter; S80.11XA - Contusion of right lower leg, initial encounter (5) Chronic kidney disease (CKD) Status: Acute Qualifiers: Chronic kidney disease stage: stage 3 (moderate) Qualified Code(s): N18.3 - Chronic kidney disease, stage 3 (moderate) (6) CHF (congestive heart failure) Status: Acute Plan: I &OS, LASIX 20MG IV X1 DOSE. POSTASSIUM REPLACEMENT, CARDIAC MONITORING , SUPPLEMENTAL O2
[2017-12-27] MEDS ORDERED: K-DUR TAB 20 MEQ PO SCH (11:00)
[2017-12-27] MEDS ORDERED: LASIX IVP SCH (11:00)
[2017-12-27] MEDS ORDERED: LEXAPRO PO SCH (11:00)
[2017-12-27] MEDS ORDERED: LEXAPRO ONE (11:40)
[2017-12-27 15:42] LABS: ABG BASE EXCESS -0.3 mmol/L (-2.0-2.0); ABG HCO3 22.6 mmol/L (22-26)
[2017-12-27 15:44] LABS: ABG ALLEN TEST POS
[2017-12-27] MEDS ORDERED: LASIX IVP ONE ×2 (15:53→19:14)
--- NOTE | 2017-12-27 16:21 | RAD ---
Examination: Portable AP chest History: SOB Comparison 12/26/2017 Findings: Persistent cardiac enlargement with stable position of pacing device. Increasing vascular congestion with development of bilateral perivascular edema. No consolidation or pneumothorax. Impression: Persistent cardiac enlargement with increasing CHF and pulmonary edema. Reported By:
[2017-12-27] MEDS ORDERED: CARDIZEM TAB 30 MG PLAIN PO SCH ×2 (19:00→20:00)
[2017-12-27 19:01] LABS: ABG BASE EXCESS 1.6 mmol/L (-2.0-2.0); ABG HCO3 23.9 mmol/L (22-26)
[2017-12-27 19:02] LABS: ABG ALLEN TEST pos
[2017-12-27] MEDS ORDERED: LASIX PO ONE (19:14)
[2017-12-27 19:53] LABS: CKMB % 1.6 % (<4); CREATINE KINASE 62 Units/L (39-308); CREATINE KINASE MB < 1.0 ng/mL (0-4.0); TROPONIN I < 0.02 ng/mL (0-1.5)
[2017-12-27 20:47] LABS: BILIRUBIN,URINE NEGATIVE (NEGATIVE); BLOOD/HEMOGLOBIN,URINE 5+ (NEGATIVE); GLUCOSE, URINE NEGATIVE (NEGATIVE); KETONES,URINE NEGATIVE (NEGATIVE); LEUKOCYTE ESTERASE ,URINE NEGATIVE (NEGATIVE); NITRITES,URINE NEGATIVE (NEGATIVE); PROTEIN,URINE 2+ (NEGATIVE); UROBILINOGEN,URINE NORMAL (NORMAL)
[2017-12-27] MEDS ORDERED: NORCURON INJ 10 MG VIAL ONE (20:53)
[2017-12-27] MEDS ORDERED: QUELICIN (OR ANECTINE) ONE (20:53)
[2017-12-27] MEDS ORDERED: VERSED ONE (20:53)
[2017-12-27] MEDS ORDERED: DIPRIVAN VIAL 20 ML ONE (20:53)
[2017-12-27 20:56] LABS: APPEARANCE,URINE HAZY (CLEAR); BACTERIA,URINE NEGATIVE /HPF (NEGATIVE); COLOR,URINE YELLOW (YELLOW); RBC,URINE TNTC /HPF (NONE SEEN); SQUAMOUS EPITHELIAL CELL,UR FEW /HPF (NEGATIVE)
[2017-12-27 20:57] LABS: AMORPHOUS SEDIMENT,UR TRACE /HPF (NEGATIVE); HYALINE CASTS, URINE FEW /LPF (NEGATIVE)
[2017-12-27] MEDS ORDERED: LIPITOR TAB 40 MG PO SCH (21:00)
[2017-12-27] MEDS ORDERED: LOVENOX INJ 100 MG SYR SC SCH (21:00)
[2017-12-27] MEDS ORDERED: DIPRIVAN PREMIX 1 GRAM IV 1,000 MG/100 ML VIAL ONE (21:19)
[2017-12-27] MEDS ORDERED: DIPRIVAN PREMIX 1 GRAM IV 1,000 MG/100 ML VIAL IV PRN (21:22)
--- NOTE | 2017-12-27 21:47 | DR.UPDATE ---
H&P Update History and Physical Update: History and Physical reviewed and patient examined. Changes noted: NO Yes with the following:agree with H&P. will intubate for transport. Procedures (ALL) - Intubation Time out performed: Yes Sedative: ketamine, versed (versed 2mg, ketamine 100mg, propofol 50mg) paralytic: succinylchline (100mg, vecuronium 10 mg after return of spontaneous ventilation) Laryngoscope: tree (mac4 x 1 attempt. grade 1 view of cords) ET tube size: 8 Tube secured depth: 22 Tube secured location: teeth Tube placement confirmation: visualized tube passing through cords, equal breath sounds bilaterally, no breath sounds over epigastrium, comfirmation by capnometer Patient tolerated procedure: Yes Intubation complications: none (placed on vent per RT. 650/12/.5/5)
[2017-12-27 22:18] VITALS: BP 105/79
[2017-12-28] MEDS ORDERED: REQUIP PO SCH (09:00)
[2017-12-28] MEDS ORDERED: FLOMAX PO SCH (09:00)
[2017-12-28] MEDS ORDERED: PROTONIX TAB 40 MG PO SCH (09:00)
[2017-12-28] MEDS ORDERED: LASIX IVP ONE (19:00)
== END 2017-12-27 22:23 | disposition short-term general hospital (02) | DRG 69 ==
LOC: ER 20:19 → ICU 12-27 00:04
PROVIDERS: ADMIT Internal Medicine; ATTEND Internal Medicine
DX: Z91.81 History of falling; I25.10 Atherosclerotic heart disease of native coronary artery without angina pectoris; E87.6 Hypokalemia; G45.8 Other transient cerebral ischemic attacks and related syndromes; I48.91 Unspecified atrial fibrillation; R41.0 Disorientation, unspecified; S80.11XA Contusion of right lower leg, initial encounter; R94.31 Abnormal electrocardiogram [ECG] [EKG]; Z95.0 Presence of cardiac pacemaker; I50.9 Heart failure, unspecified; R60.0 Localized edema; N18.3 Chronic kidney disease, stage 3 (moderate); W18.39XA Other fall on same level, initial encounter
CPT/HCPCS: 36415; 36600; 70450; 71010; 71045; 80053; 80061; 81001; 82550; 82553; 82803; 83735; 84132; 84484; 85025; 85378; 85610; 85730; 87070; 87075; 87077; 87186; 87205; 93005; 93010; 94002; 96365; 96367; 96372; 96374; 96375; 99284; 99285; A4216; A4222; C9113; J0330; J1650; J1940; J2250; J2704; J3490; J7030; J7050; J8499; S5010